=== PATIENT | male | born 1955 | race African-American/Black ===

== ENCOUNTER 2019-04-07 07:58 | Emergency (ER) | payer OTHER, SELFPAY ==
[2019-04-07 08:11] VITALS: BP 197/95; PULSE 71; RESP 16; TEMP 36.6; O2SAT 100; BMI 36.6
--- NOTE | 2019-04-07 08:25 | ED_ITS ---
HPI - General Adult General Chief complaint: Diabetic Problem Stated complaint: body swelling/change in dm med x1 day Time Seen by Provider: 04/07/19 08:14 Source: patient Mode of arrival: Ambulatory Limitations: no limitations History of Present Illness HPI narrative: Patient is a 63-year-old male with his on insulin presenting with increased swelling in his legs. He says the swelling in his legs woke him up last evening. He says he lost weight he was down to 220 however last week at his PCP office he noticed that he was up 10 lb up to 230 today he actually weighs 240 lb. He has no chest pain no shortness of breath is he just feels like his legs are extremely swollen. Few weeks ago he had a near syncopal episode due to elevated glucose he says his sugars were more than 500. He was seen by his PCP his medications were changed he was put on a different metformin 500 twice a day and he takes Lantus as well. He denies any orthopnea no fevers or chills no redness. He says yesterday he did not eat a significant amount of salt he had macro need she has rib for dinner, and a turkey sandwich for lunch. Related Data Home Medications Medication Instructions Recorded Confirmed aspirin 81 mg PO DAILY 04/07/19 04/07/19 Previous Rx's Medication Instructions Recorded furosemide 20 mg PO QAM #5 tab 04/07/19 lisinopril 20 mg PO DAILY #30 tab 04/07/19 Review of Systems Review of Systems ROS Unobtainable: All systems reviewed & are unremarkable except as noted in HPI and below Constitutional Constitutional: Denies chills, Denies fever(s), Denies lethargy and Denies weakn ess Eyes Eyes: Denies change in vision, Denies eye discharge, Denies irritation and Denies loss of vision ENT Ears, Nose, Mouth, and Throat: Denies change in voice, Denies neck pain and Denies sore throat Cardiovascular Cardiovascular: Reports as per HPI, Denies chest pain, Denies irregular heart rhythm, Reports leg edema, Denies lightheadedness, Denies palpitations, Denies dyspnea, Denies dyspnea on exertion and Denies orthopnea Respiratory Respiratory: Denies cough, Denies dyspnea, Denies dyspnea on exertion and Denies wheezing Gastrointestinal Gastrointestinal: Denies abdominal pain, Denies change in bowel habits, Denies diarrhea, Denies nausea and Denies vomiting Genitourinary Genitourinary: Denies hematuria, Denies flank pain, Denies urinary incontinence and Denies urinary urgency Musculoskeletal Musculoskeletal: Denies neck pain Integumentary/Breasts Skin/Breast: Denies pruritus, Denies erythema, Denies rash and Denies wounds Neurologic Neurologic: Denies confusion, Denies loss of vision and Denies weakness Psychiatric Psychiatric: Denies anxiety, Denies confusion, Denies depression, Denies homicidal ideation and Denies suicidal ideation Endocrine Endocrine: Denies palpitations Allergic/Immunologic Allergic/Immunologic: Denies wheezing Patient History Medical History Diabetes (Acute) Social History Smoking Status: Never smoker alcohol intake frequency: holidays/special occasions only Substance Use Type: does not use Exam Initial Vital Signs Initial Vital Signs: Vital Signs Temperature 98 F 04/07/19 08:11 Pulse Rate 71 04/07/19 08:11 Respiratory Rate 16 04/07/19 08:11 Blood Pressure 197/95 H 04/07/19 08:11 Pulse Oximetry 100 04/07/19 08:11 GENERAL: Well-appearing, well-nourished and in no acute distress. HEENT: Head atraumatic,EOMI, pupils reactive, face symmetric CARDIOVASCULAR: Regular rate and rhythm without murmurs, rubs or gallops. RESPIRATORY: Breath sounds equal bilaterally, no wheezes rales or rhonchi. Speaks in full sentences without difficulty ABDOMEN: Soft, nontender. Normoactive bowel sounds all 4 quadrants. No guarding or rebound. EXTREMITIES: Normal range of motion, no clubbing or edema. Neurovascularly intact Bilateral lower extremity edema +3 pitting edema no erythema NEUROLOGICAL: Alert and oriented x4.Normal gait and speech. Cranial nerves II through XII grossly intact. SKIN: Warm, dry, no laceration, no petechiae, no rashes or lesions. Course Orders Ordered: ED Orders 04/07/19 08:20 B Type Natriuretic Peptide Stat Complete Blood Count AUTO DIFF Stat Comprehensive Metabolic Panel Stat Magnesium Stat Troponin & CK Cardiac Panel Stat 04/07/19 08:23 Consult to Respiratory Therapy Evaluate & Treat EKG-12 Lead Stat 04/07/19 08:24 XR chest 1V Stat 04/07/19 09:08 Urine Microscopic Stat Discontinued Medications Furosemide (Lasix) 20 mg IV NOW ONE Stop: 04/07/19 08:23 Last Admin: 04/07/19 08:59 Dose: 20 mg Documented by: MELINA Vital Signs Vital signs: Vital Signs - 8 hr 04/07/19 08:11 04/07/19 09:53 Temperature 98 F Pulse Rate 71 70 Respiratory Rate 16 17 Blood Pressure 197/95 H Blood Pressure [Left Arm] 165/71 H Pulse Oximetry 100 97 Medical Decision Making Lab Data Lab results reviewed: Yes I reviewed the patient's lab results. Result diagrams: 04/07/19 08:20 04/07/19 08:20 Labs: Lab Results 04/07/19 04/07/19 04/07/19 Range/Units 08:20 08:20 09:08 WBC 8.2 (4.5-11.0) X10^3/uL RBC 4.12 L (4.5-5.9) X10^6/uL Hgb 12.1 L (13.5-17.5) g/dL Hct 35.8 L (41-53) % MCV 86.9 (80-100) fL MCH 29.4 (26-34) PG MCHC 33.9 (30-36) % RDW 12.9 (11.6-14.8) % Plt Count 185 (150-400) X10^3/uL Neut % (Auto) 69.3 (50-75) % Lymph % (Auto) 21.0 L (25-40) % [place] % (Auto) 6.4 (3-14) % Eos % (Auto) 2.1 (2-4) % Baso % (Auto) 1.2 (0-2) % Neut # (Auto) 5700 (0208-9038) /uL Lymph # (Auto) 1700 (2235-7066) /uL [place] # (Auto) 500 (0-900) /uL Eos # (Auto) 200 (0-450) /uL Baso # (Auto) 100 (0-100) /uL Sodium 140 (137-145) mmol/L Potassium 3.9 (3.4-5.1) mmol/L Chloride 106 (98-107) mmol/L Carbon Dioxide 28 (22-32) mmol/L BUN 10 (9-20) mg/dL Creatinine 0.80 (0.66-1.25) mg/dL Estimated GFR > 60.0 (>60) mL/min BUN/Creatinine Ratio 12.5 (6-22) Glucose 231 H (80-110) mg/dL Calcium 9.2 (8.4-10.2) mg/dL Magnesium 1.7 (1.6-2.3) mg/dL Total Bilirubin 0.6 (0.2-1.3) mg/dL AST 40 (17-59) IU/L ALT 41 (<50) IU/L Alkaline Phosphatase 60 (38-126) U/L Total Creatine Kinase 214 H (55-170) U/L CK-MB (CK-2) 1.03 (<2.37) ng/mL CK-MB (CK-2) Rel Index 0.5 L (1.5-5.0) % Troponin I < 0.012 (0.01-0.034) ng/mL B-Natriuretic Peptide 191 H (<100) Total Protein 6.2 L (6.3-8.2) g/dL Albumin 3.5 (3.5-5.0) g/dL Globulin 2.7 (1.7-4.1) g/dL Albumin/Globulin Ratio 1.3 (1.0-2.8) Urine RBC None seen (0-5/HPF) Urine WBC None seen (0-5/HPF) Urine Bacteria None seen (None) Ur Culture Indicated? Cult not indicated Micro UA Comment Microscopic normal Point of Care Testing Glucose POC 224 Urine Dip Bedside Urine Glucose 500 mg/dl Bedside Urine Bilirubin - Negative Bedside Urine Ketone - Negative Urine Specific [employer] [place] 1.015 Bedside Urine Occult Blood - Negative Bedside Urine pH 6.0 Bedside Urine Protein ++ 100 Bedside Urine Urobilinogen - Negative Bedside Urine Nitrite - Negative Bedside Urine Leukocytes - Negative Esterase Point of care testing: Point of Care Testing Glucose POC 224 Urine Dip Bedside Urine Glucose 500 mg/dl Bedside Urine Bilirubin - Negative Bedside Urine Ketone - Negative Urine Specific [employer] [place] 1.015 Bedside Urine Occult Blood - Negative Bedside Urine pH 6.0 Bedside Urine Protein ++ 100 Bedside Urine Urobilinogen - Negative Bedside Urine Nitrite - Negative Bedside Urine Leukocytes - Negative Esterase Imaging Data Chest x-ray: Radiologist's impression: PROCEDURE: XR CHEST 1V INDICATIONS: swelling in legs TECHNIQUE: One view of the chest was acquired. COMPARISON: None. FINDINGS: Surgical changes and devices: None. Lungs and pleura: An incomplete inspiratory result is noted, causing a crowded appearance to the lung markings. No focal infiltrates are seen. No pneumoth orax or significant pleural effusions are seen. Mediastinum: Mediastinal contours appear normal. Heart size is normal. Bones and chest wall: No suspicious bony lesions. Overlying soft tissues appear unremarkable. IMPRESSION: Limited portable chest examination, without a significant cardiopulmonary abnormality identified. Dictated by: Camilo Covarrubias M.D. on 04/07/2019 at 8:10 Approved by: Camilo Covarrubias M.D. on 04/07/2019 at 8:11 ECG Data Attestation: I personally reviewed and interpreted this ECG as follows: Prior ECG tracings: not available for review Interpretation: Normal sinus rhythm rate [address] changes no T-wave inversions MDM Narrative Medical decision making narrative: The patient states that he stop all his medication for a year including lisinopril furosemide and hydrochlorothiazide. He recently started seeing a new PCP who started him back on his medications and was going to add them back on slowly. She started with metformin atorvastatin and Lantus. At this time I will start patient back on his lisinopril and furosemide. He has urinated quite well with 20 mg of IV Lasix. I discussed with him at length signs and symptoms of angioedema from ANABELL inhibitors. However patient has tolerated that well in the past. I have decreased his dose as well. His blood pressure has come down without any intervention in the ED. Discharge Plan Departure Patient Disposition: Home Clinical Impression: Edema, peripheral Discharge Date/Time: 04/07/19 10:25 Instructions: DI for Peripheral Edema -- Bilateral Activity Restrictions/Additional Instructions: *You have been diagnosed with peripheral edema *What to do: Your previous medication to stop with swelling of your extremities. I will restart your medication today. Please started tomorrow. The doses are slightly lower than what you were previously on *Continue to take medications as directed Lisinopril 20mg once daily Furosemide 20 mg once a day in the morning for the next 5 days. You will need to have your potassium rechecked by your PCP *Follow up with your primary care provider in 2-3 days *Return to ER if you should have increased swelling, shortness of breath, chest pain or any new, worsening or concerning symptoms Prescriptions: New lisinopril 20 mg tablet 20 mg PO DAILY Qty: 30 RF: 0 furosemide 20 mg tablet 20 mg PO QAM Qty: 5 RF: 0 No Action aspirin 81 mg tablet,delayed release (DR/EC) 81 mg PO DAILY RF: 0 Referrals: [facility] [Provider Group] Malorie Collins DO [Primary Care Provider] -
[2019-04-07 08:39] LABS: Alanine Aminotransferase 41 IU/L (<50); Albumin 3.5 g/dL (3.5-5.0); Albumin Globulin Ratio 1.3 (1.0-2.8); Alkaline Phosphatase 60 U/L (38-126); Aspartate Aminotransferase 40 IU/L (17-59); BUN Creatinine Ratio 12.5 (6-22); Bilirubin Total 0.6 mg/dL (0.2-1.3); Blood Urea Nitrogen 10 mg/dL (9-20); Calcium 9.2 mg/dL (8.4-10.2); Carbon Dioxide 28 mmol/L (22-32); Chloride 106 mmol/L (98-107); Creatine Kinase 214 U/L (55-170); Estimated Glomerular Filt Rate > 60.0 mL/min (>60); Globulin 2.7 g/dL (1.7-4.1); Glucose 231 mg/dL (80-110); HEMOLYSIS < 15 (0-50); Magnesium 1.7 mg/dL (1.6-2.3); Potassium 3.9 mmol/L (3.4-5.1); Sodium 140 mmol/L (137-145); Total Protein 6.2 g/dL (6.3-8.2)
[2019-04-07 08:47] LABS: Add Manual Diff / Slide Review NO; Basophils Absolute Auto 100 /uL (0-100); Basophils Percent Auto 1.2 % (0-2); Eosinophils Absolute Auto 200 /uL (0-450); Eosinophils Percent Auto 2.1 % (2-4); Hematocrit 35.8 % (41-53); Hemoglobin 12.1 g/dL (13.5-17.5); Lymphocytes Absolute Auto 1700 /uL (1100-4500); Mean Corpuscular HGB Conc 33.9 % (30-36); Mean Corpuscular Hemoglobin 29.4 PG (26-34); Mean Corpuscular Volume 86.9 fL (80-100); Monocytes Absolute Auto 500 /uL (0-900); Monocytes Percent Auto 6.4 % (3-14); Neutrophils Absolute Auto 5700 /uL (1500-7000); Neutrophils Percent Auto 69.3 % (50-75); Platelet Count 185 X10^3/uL (150-400); Red Blood Cell Count 4.12 X10^6/uL (4.5-5.9); Red Cell Distribution Width 12.9 % (11.6-14.8); White Blood Cell Count 8.2 X10^3/uL (4.5-11.0)
[2019-04-07 08:51] LABS: Troponin I < 0.012 ng/mL (0.01-0.034)
[2019-04-07 08:54] LABS: CKMB % Relative Index 0.5 % (1.5-5.0); Creatine Kinase MB 1.03 ng/mL (<2.37)
[2019-04-07] MEDS: FUROSEMIDE 40 MG/4 ML VIAL 20 MG IV (08:59)
[2019-04-07 09:01] LABS: B Type Natriuretic Peptide 191 (<100)
[2019-04-07 09:53] VITALS: BP 165/71; PULSE 70; RESP 17; O2SAT 97
[2019-04-07 10:09] LABS: Bacteria Urine None Seen; RBC Urine None Seen (0-5/HPF); WBC Urine None Seen (0-5/HPF)
[2019-04-07 10:16] LABS: Culture Indicated Urine Cult Not Indicated; Urine Comments Microscopic Normal
== END 2019-04-07 10:25 | disposition home or self-care (01) ==
PROVIDERS: Emergency Provider Emergency Medicine; PCP Family Medicine
DX: R60.9 Edema, unspecified (principal); E11.9 Type 2 diabetes mellitus without complications
CPT/HCPCS: 36415; 71045; 80053; 81003; 81015; 82550; 82553; 82962; 83735; 83880; 84484; 85025; 93005; 93010; 96374; 99283; 99285; J1940

== ENCOUNTER 2019-08-14 12:22 | Emergency (ER) | payer OTHER, SELFPAY ==
[2019-08-14 12:25] VITALS: BP 220/99; PULSE 72; RESP 18; TEMP 36.5; O2SAT 98
--- NOTE | 2019-08-14 12:35 | ED.CHESTPAIN ---
HPI - Chest Pain <KEVIN Brar - Last Filed: 08/14/19 21:15> General Chief Complaint: Hypertension Stated Complaint: High blood pressure Time Seen by Provider: 08/14/19 12:30 Source: patient Mode of arrival: Ambulatory Limitations: no limitations History of Present Illness HPI narrative: 64yo male with a history of significant hypertension, diabetes, Mobitz 1, and obesity, presents to the emergency department complaining of high blood pressure in reporting that his systolic has been over 200 for the past 6 months. However, this morning around 10 AM, as he was on a conference call, he measured his blood pressure and noticed that the diastolic measurement was over 100. Patient stated while he was measuring his blood pressure on his left arm, he noticed his left arm felt numb, the numbness radiated down to his leg, this happened around 10:00 a.m. this morning. The leg numbness resolved after a few minutes but the arm numbness continued. He also noticed that ?my head felt hot ?but denies any vision changes, headaches, chest pain, shortness of breath, fevers, cough, chills, nausea, vomiting, diarrhea, abdominal pain, or any other concerns. He denies any history of cardiac surgeries, MIs, or other significant problems. Related Data Home Medications Medication Instructions Recorded Confirmed aspirin 81 mg PO DAILY 04/07/19 04/07/19 Previous Rx's Medication Instructions Recorded furosemide 20 mg PO QAM #5 tab 04/07/19 lisinopril 20 mg PO DAILY #30 tab 04/07/19 Allergies Allergy/AdvReac Type Severity Reaction Status Date / Time No Known Drug Allergies Allergy Verified 08/14/19 12:38 Review of Systems <KEVIN Brar - Last Filed: 08/14/19 21:15> Review of Systems Narrative: REVIEW OF SYSTEMS: GENERAL: Denies fever or chills. HENT: No head trauma, hearing loss or sore throat. EYES: No loss of vision, double vision, eye pain, or irritation. CARDIOVASCULAR: No chest pain or syncope. RESPIRATORY: No shortness of breath or cough. GASTROINTESTINAL: No nausea, vomiting, diarrhea, or constipation. GENITOURINARY: No flank pain or dysuria. MUSCULOSKELETAL: No pain, weakness, or deformities. INTEGUMENTARY: No rash, lesions, or pruritus. NEURO: Complains of left arm numbness, see HPI. PSYCH: No behavior or mood changes. Patient History <KEVIN Brar - Last Filed: 08/14/19 21:15> Medical History Diabetes (Acute) Social History Smoking Status: Never smoker Smoking Status: Never smoker alcohol intake frequency: holidays/special occasions only Substance Use Type: does not use Exam <KEVIN Brar - Last Filed: 08/14/19 21:15> Initial Vital Signs Initial Vital Signs: Vital Signs Temperature 97.7 F 08/14/19 12:25 Pulse Rate 72 08/14/19 12:25 Respiratory Rate 18 08/14/19 12:25 Blood Pressure 220/99 H 08/14/19 12:25 Pulse Oximetry 98 08/14/19 12:25 PHYSICAL EXAMINATION: GENERAL: Well groomed, alert, and cooperative. Answers questions promptly and appropriately. Vital signs noted. HENT: Normocephalic, atraumatic. Ear canals patent. Oral mucosa is pink and moist. EYES: Conjunctiva pink, sclera white, no periorbital swelling. NECK: Full range of motion of neck without pain. CHEST: Normal to inspection and without deformities. CARDIOVASCULAR: S1 and S2 sounds normal. Regular rate and rhythm, no murmurs, clicks, or bruits. No pedal edema. RESPIRATORY: Normal respiratory rate, trachea midline, airway patent. No stridor, nasal flaring or accessory muscle use. Lungs are clear in all salas without wheeze, rhonchi, or crackles. GASTROINTESTINAL: Bowel sounds normoactive. Abdomen is soft and non-tender. No organomegaly. MUSCULOSKELETAL: No tenderness to palpation of back, neck, or arm. Normal gait and coordination. Equal tone and mass bilaterally. Equal investigator narcotics, deltoid, and forearm strength to upper extremities. EXTREMITIES: CMS intact. Moves all extremities. SKIN: Warm, dry, soft, appropriate color for ethnicity. No lesions, rashes, or wounds. NEURO: Alert and Oriented X 3. CN II-XIII intact. Good coordination. No ataxia, or sensory deficits, or cognitive issues. Light touch sensation equal to upper extremities bilaterally. PSYCH: Appropriate affect and mood. <Orlando Spencer DO - Last Filed: 08/17/19 11:34> Initial Vital Signs Initial Vital Signs: Vital Signs Temperature 97.7 F 08/14/19 12:25 Pulse Rate 72 08/14/19 12:25 Respiratory Rate 18 08/14/19 12:25 Blood Pressure 220/99 H 08/14/19 12:25 Pulse Oximetry 98 08/14/19 12:25 Scores <KEVIN Brar - Last Filed: 08/14/19 21:15> HEART Score Heart Score history: Slightly Suspicious Heart Score EKG: Normal Heart Score Age: 45-64 years old Heart Score risk factors: 1-2 risk factors Heart Score troponin: < or = to normal limit Heart Score Total: 2 NIH Stroke Scale Level of Conciousness: Alert, keenly responsive Ask month/age: Answers both questions correctly. Open/close eyes, close hand: Performs both tasks correctly Best gaze horizontal: Normal Visual salas: No visual loss Facial palsy: Normal symetrical movement Left arm drift: No drift for full 10 sec Right arm drift: No drift for full 10 sec Left leg drift: No drift for full 10 sec Right leg drift: No drift for full 10 sec Limb ataxia: Absent Sensory on face/arms/legs: Normal, no sensory loss Best language: No aphasia, normal Dysarthria: Normal Extinction or inattention: No abnormality Total NIH Stroke scale score: 0 Course <KEVIN Brar - Last Filed: 08/14/19 21:15> Course Course Narrative: Patient states that his left arm numbness completely resolved around 1320. No other symptoms, remained chest pain-free. Orders Ordered: Discontinued Medications Aspirin (Aspirin Chew) 324 mg PO NOW ONE Stop: 08/14/19 12:35 Last Admin: 08/14/19 13:24 Dose: 324 mg Documented by: [email or web address] Sodium Chloride (Normal Saline 0.9%) 1,000 mls @ 150 mls/hr IV CONT MATTHEW Last Infusion: 08/14/19 14:25 Dose: 0 mls/hr Documented by: [email or web address] Infusion: 08/14/19 14:22 Dose: 1,000 mls/hr Documented by: [email or web address] Admin: 08/14/19 13:24 Dose: 150 mls/hr Documented by: [email or web address] Consultations Consultation #1: Staffed with Dr. Spencer. Vital Signs Vital signs: Vital Signs - 8 hr 08/14/19 13:39 08/14/19 14:08 Pulse Rate 61 62 Respiratory Rate 16 20 Blood Pressure [Left Arm] 171/80 H 171/80 H Pulse Oximetry 99 99 <Orlando Spencer DO - Last Filed: 08/17/19 11:34> Orders Ordered: Discontinued Medications Aspirin (Aspirin Chew) 324 mg PO NOW ONE Stop: 08/14/19 12:35 Last Admin: 08/14/19 13:24 Dose: 324 mg Documented by: [email or web address] Sodium Chloride (Normal Saline 0.9%) 1,000 mls @ 150 mls/hr IV CONT MATTHEW Last Infusion: 08/14/19 14:25 Dose: 0 mls/hr Documented by: [email or web address] Infusion: 08/14/19 14:22 Dose: 1,000 mls/hr Documented by: [email or web address] Admin: 08/14/19 13:24 Dose: 150 mls/hr Documented by: [email or web address] Vital Signs Vital signs: Vital Signs - 8 hr 08/14/19 13:39 08/14/19 14:08 Pulse Rate 61 62 Respiratory Rate 16 20 Blood Pressure [Left Arm] 171/80 H 171/80 H Pulse Oximetry 99 99 MDM - Chest Pain <KEVIN Brar - Last Filed: 08/14/19 21:15> Medical Records Data Attestation: I reviewed the patient's medical records. Lab Data Attestation: I reviewed the patient's lab results. Result diagrams: 08/14/19 12:15 08/14/19 12:15 Labs: Lab Results 08/14/19 08/14/19 Range/Units 12:15 12:15 WBC 6.0 (4.5-11.0) X10^3/uL RBC 4.67 (4.5-5.9) X10^6/uL Hgb 13.5 (13.5-17.5) g/dL Hct 39.9 L (41-53) % MCV 85.6 (80-100) fL MCH 29.0 (26-34) PG MCHC 33.9 (30-36) % RDW 13.6 (11.6-14.8) % Plt Count 222 (150-400) X10^3/uL Neut % (Auto) 57.9 (50-75) % Lymph % (Auto) 33.3 (25-40) % [place] % (Auto) 7.2 (3-14) % Eos % (Auto) 1.1 L (2-4) % Baso % (Auto) 0.5 (0-2) % Neut # (Auto) 3500 (7926-5487) /uL Lymph # (Auto) 2000 (6494-7287) /uL [place] # (Auto) 400 (0-900) /uL Eos # (Auto) 100 (0-450) /uL Baso # (Auto) 0 (0-100) /uL Sodium 138 (137-145) mmol/L Potassium 4.3 (3.4-5.1) mmol/L Chloride 103 (98-107) mmol/L Carbon Dioxide 27 (22-32) mmol/L BUN 13 (9-20) mg/dL Creatinine 0.91 (0.66-1.25) mg/dL Estimated GFR > 60.0 (>60) mL/min BUN/Creatinine Ratio 14.3 (6-22) Glucose 288 H (80-110) mg/dL Calcium 9.4 (8.4-10.2) mg/dL Total Bilirubin 0.6 (0.2-1.3) mg/dL AST 31 (17-59) IU/L ALT 31 (<50) IU/L Alkaline Phosphatase 65 (38-126) U/L Total Creatine Kinase 130 (55-170) U/L CK-MB (CK-2) 1.10 (<2.37) ng/mL CK-MB (CK-2) Rel Index 0.8 L (1.5-5.0) % Troponin I < 0.012 (0.01-0.034) ng/mL Total Protein 7.3 (6.3-8.2) g/dL Albumin 4.2 (3.5-5.0) g/dL Globulin 3.1 (1.7-4.1) g/dL Albumin/Globulin Ratio 1.4 (1.0-2.8) Lipase 87 (23-300) U/L Imaging Data Chest x-ray: Radiologist's Impression: [address] [address] XRay Report Signed Patient: Glen Guardado RMR#: [id number] : 7Acct:[id number] Age/Sex: 64 / MDate of Service: 08/14/19 Loc: ED Accession Number: [id number] Procedure: XR chest 1V Ordering Provider: Amy Koehler PROCEDURE: XR CHEST 1V INDICATIONS: HBP, chest pain TECHNIQUE: One view of the chest was acquired. COMPARISON: [facility], , XR CHEST 1V, 04/07/2019, 8:37. FINDINGS: Surgical changes and devices: None. Lungs and pleura: Lungs are clear. No pleural effusions or pneumothorax. Mediastinum: Mediastinal contours appear normal. Heart size is normal. Bones and chest wall: No suspicious bony lesions. Overlying soft tissues appear unremarkable. IMPRESSION: Normal for age, source of current chest pain symptoms is not seen. Dictated by: Tomer Duke M.D. on 08/14/2019 at 13:11 Approved by: Tomer Duke M.D. on 08/14/2019 at 13:11 ECG Data Interpretation: Rate 67, AL interval 292, QTC 456. Sinus rhythm, Mobitz 1, Left axis deviation. No ST elevation or ST depression. No T-wave abnormality. EKG is similar to prior EKG done on 03/2019. EKG also viewed by Dr. Spencer per protocol. [facility] Narrative Medical decision making narrative: 64-year-old male with a history of hypertension and diabetes, presents emergency department with left arm and a left leg numbness and flushing with upset high blood pressure. This happened while he was measuring his blood pressure on his left arm. Patient's symptoms completely resolved in the emergency department. Less likely MSK related as the symptoms were not reproducible on examination with palpation. Less likely cardiac or intracranial etiology due to lack of chest pain, weakness, and EKG fairly non-remarkable (left axis deviation and Mobitz 1-similar to history), troponin negative, chest x-ray is non-remarkable, heart score of 2, NIH score of 0. I am unsure the exact etiology of patient's symptoms. It may be possible that the blood pressure cough cause some sensation due to they squeezing nature, however, it is on and that the numbness which continue to last for few hours. Patient's blood pressure was decreased in the emergency department stay without intervention. 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 Patient and is not a candidate for admission due to lack of other symptoms and reassuring cardiac workup. However, he was given very strict return precautions. Patient agreed to plan of care verbalized understanding. <Orlando Spencer DO - Last Filed: 08/17/19 11:34> Lab Data Labs: Lab Results 08/14/19 08/14/19 Range/Units 12:15 12:15 WBC 6.0 (4.5-11.0) X10^3/uL RBC 4.67 (4.5-5.9) X10^6/uL Hgb 13.5 (13.5-17.5) g/dL Hct 39.9 L (41-53) % MCV 85.6 (80-100) fL MCH 29.0 (26-34) PG MCHC 33.9 (30-36) % RDW 13.6 (11.6-14.8) % Plt Count 222 (150-400) X10^3/uL Neut % (Auto) 57.9 (50-75) % Lymph % (Auto) 33.3 (25-40) % [place] % (Auto) 7.2 (3-14) % Eos % (Auto) 1.1 L (2-4) % Baso % (Auto) 0.5 (0-2) % Neut # (Auto) 3500 (3914-1620) /uL Lymph # (Auto) 2000 (2800-8778) /uL [place] # (Auto) 400 (0-900) /uL Eos # (Auto) 100 (0-450) /uL Baso # (Auto) 0 (0-100) /uL Sodium 138 (137-145) mmol/L Potassium 4.3 (3.4-5.1) mmol/L Chloride 103 (98-107) mmol/L Carbon Dioxide 27 (22-32) mmol/L BUN 13 (9-20) mg/dL Creatinine 0.91 (0.66-1.25) mg/dL Estimated GFR > 60.0 (>60) mL/min BUN/Creatinine Ratio 14.3 (6-22) Glucose 288 H (80-110) mg/dL Calcium 9.4 (8.4-10.2) mg/dL Total Bilirubin 0.6 (0.2-1.3) mg/dL AST 31 (17-59) IU/L ALT 31 (<50) IU/L Alkaline Phosphatase 65 (38-126) U/L Total Creatine Kinase 130 (55-170) U/L CK-MB (CK-2) 1.10 (<2.37) ng/mL CK-MB (CK-2) Rel Index 0.8 L (1.5-5.0) % Troponin I < 0.012 (0.01-0.034) ng/mL Total Protein 7.3 (6.3-8.2) g/dL Albumin 4.2 (3.5-5.0) g/dL Globulin 3.1 (1.7-4.1) g/dL Albumin/Globulin Ratio 1.4 (1.0-2.8) Lipase 87 (23-300) U/L Discharge Plan Departure Patient Disposition: Home Clinical Impression: Hypertension Qualifiers: Hypertension type: unspecified Qualified Code(s): I10 - Essential (primary) hypertension Discharge Date/Time: 08/14/19 14:20 Instructions: DI for High Blood Pressure Activity Restrictions/Additional Instructions: Thank you for entrusting me with your care today. As discussed, your blood pressure was high initially measuring at 220/99, however, your lab work, EKG, and x-ray was non-remarkable. I suggest calling your sewing pattern layout technician and asking for sooner appointment to be evaluated due to high blood pressure, please tell them the was seen in the emergency department. Return emergency department for any new or worsening symptoms such as chest pain, shortness of breath, dizziness, syncope, limb weakness, facial droop, or any other concerning symptoms. Prescriptions: No Action aspirin 81 mg tablet,delayed release (DR/EC) 81 mg PO DAILY RF: 0 lisinopril 20 mg tablet 20 mg PO DAILY Qty: 30 RF: 0 furosemide 20 mg tablet 20 mg PO QAM Qty: 5 RF: 0 Referrals: Malorie Collins DO [Primary Care Provider] - <Orlando Spencer DO - Last Filed: 08/17/19 11:34> Sign Out Provider Sign Out Attestation: I was immediately available in the department for consultation. This documentation has been reviewed and I agree with assessment and plan. Supervised by Orlando Spencer, DO
[2019-08-14 13:00] LABS: Add Manual Diff / Slide Review NO; Basophils Absolute Auto 0 /uL (0-100); Basophils Percent Auto 0.5 % (0-2); Eosinophils Absolute Auto 100 /uL (0-450); Eosinophils Percent Auto 1.1 % (2-4); Hematocrit 39.9 % (41-53); Hemoglobin 13.5 g/dL (13.5-17.5); Lymphocytes Absolute Auto 2000 /uL (1100-4500); Lymphocytes Percent Auto 33.3 % (25-40); Mean Corpuscular HGB Conc 33.9 % (30-36); Mean Corpuscular Volume 85.6 fL (80-100); Monocytes Absolute Auto 400 /uL (0-900); Monocytes Percent Auto 7.2 % (3-14); Neutrophils Absolute Auto 3500 /uL (1500-7000); Neutrophils Percent Auto 57.9 % (50-75); Platelet Count 222 X10^3/uL (150-400); Red Blood Cell Count 4.67 X10^6/uL (4.5-5.9); Red Cell Distribution Width 13.6 % (11.6-14.8)
[2019-08-14 13:03] VITALS: BP 170/92; PULSE 81; RESP 20; O2SAT 99
[2019-08-14] MEDS: ASPIRIN 81 MG CHEW TAB 324 MG PO (13:24)
[2019-08-14] MEDS: SODIUM CHLORIDE 0.9% 1,000 ML 150 ML IV (13:24)
[2019-08-14 13:27] LABS: Alanine Aminotransferase 31 IU/L (<50); Albumin 4.2 g/dL (3.5-5.0); Albumin Globulin Ratio 1.4 (1.0-2.8); Alkaline Phosphatase 65 U/L (38-126); Aspartate Aminotransferase 31 IU/L (17-59); BUN Creatinine Ratio 14.3 (6-22); Bilirubin Total 0.6 mg/dL (0.2-1.3); Blood Urea Nitrogen 13 mg/dL (9-20); Calcium 9.4 mg/dL (8.4-10.2); Carbon Dioxide 27 mmol/L (22-32); Chloride 103 mmol/L (98-107); Creatine Kinase 130 U/L (55-170); Estimated Glomerular Filt Rate > 60.0 mL/min (>60); Globulin 3.1 g/dL (1.7-4.1); Glucose 288 mg/dL (80-110); HEMOLYSIS < 15 (0-50); Lipase 87 U/L (23-300); Potassium 4.3 mmol/L (3.4-5.1); Sodium 138 mmol/L (137-145); Total Protein 7.3 g/dL (6.3-8.2)
[2019-08-14 13:37] LABS: Troponin I < 0.012 ng/mL (0.01-0.034)
[2019-08-14 13:39] VITALS: BP 171/80; PULSE 61; RESP 16; O2SAT 99
[2019-08-14 13:42] LABS: CKMB % Relative Index 0.8 % (1.5-5.0)
[2019-08-14 14:08] VITALS: BP 171/80; PULSE 62; RESP 20; O2SAT 99
== END 2019-08-14 14:20 | disposition home or self-care (01) ==
PROVIDERS: Emergency Provider Nurse Practitioner; PCP Family Medicine
DX: I10 Essential (primary) hypertension (principal); E11.9 Type 2 diabetes mellitus without complications; R20.0 Anesthesia of skin
CPT/HCPCS: 36415; 71045; 80053; 82550; 82553; 83690; 84484; 85025; 93005; 96360; 99284

== ENCOUNTER 2021-02-16 03:02 | Inpatient (IN) | payer OTHER, SELFPAY ==
[2021-02-16] VITALS (42 sets, daily range): BP systolic 103–161; BP diastolic 54–67; PULSE 45–85; RESP 11–38; TEMP 35.9–36.5; O2SAT 60–99; BMI 35.7
--- NOTE | 2021-02-16 03:15 | ED_ITS ---
HPI - SOB/Dyspnea General Chief Complaint: Shortness of Breath/Dyspnea Stated Complaint: Oxygen levels are low Time Seen by Provider: 02/16/21 03:10 History of Present Illness HPI Narrative: 65-year-old male nonsmoker with history of hypertension and diabetes presents with a chief complaint of increasing shortness of breath and low oxygen levels at home. He states he has known COVID pneumonia and had been recently admitted at an outside facility but signed out Against Medical Advice. He had been doing relatively well at home but took a significant turn for the worse over the past day or 2. He is had low-grade fever and body aches as well as some chills in addition to the shortness of breath that was mentioned above. Related Data Home Medications Medication Instructions Recorded Confirmed aspirin 81 mg tablet,delayed 81 mg PO DAILY 04/07/19 04/07/19 release Previous Rx's Medication Instructions Recorded furosemide 20 mg tablet 20 mg PO QAM #5 tab 04/07/19 lisinopril 20 mg tablet 20 mg PO DAILY #30 tab 04/07/19 Allergies Allergy/AdvReac Type Severity Reaction Status Date / Time No Known Drug Allergies Allergy Verified 08/14/19 12:38 Review of Systems Review of Systems Narrative: GENERAL: See HPI HEENT: Denies sinus pain, ear pain, sore throat, difficulty swallowing, dizziness. RESPIRATORY: See HPI CARDIOVASCULAR: Denies chest pain, palpitations, orthopnea, edema, GASTROINTESTINAL: Denies nausea, vomiting, abdominal pain, diarrhea, constipation, melena. : Denies dysuria, frequency, incontinence, hematuria, urinary retention. MUSCULOSKELETAL: denies weakness, joint pain, or bony pain SKIN: Denies rash, skin lesions, or other NEUROLOGIC: Denies weakness, headache, numbness, change in speech, confusion, seizures, incoordination. PSYCHIATRIC: No concerning psychosocial issues. 12 point review of systems is negative except for those stated above Patient History Medical History (Updated 02/16/21 @ 06:58 by Orlando Spencer DO) Diabetes Social History household members: spouse Smoking Status: Never smoker alcohol intake: former Smoking Status: Never smoker alcohol intake frequency: holidays/special occasions only Substance Use Type: does not use Exam Narrative Exam Narrative: GENERAL: [65 year old patient appears stated age. Well-developed patient, in obvious respiratory distress, initial pulse ox in the 60s on room air, quickly improves with high-flow HEAD: Atraumatic. Normocephalic. EYES: Pupils equal round and reactive. Extraocular motions intact. No scleral icterus. No injection or drainage. ENT: Nose without bleeding, purulent drainage. Throat without erythema, to nsillar hypertrophy or exudate. Airway patent. NECK: Trachea midline. Non tender CARDIOVASCULAR: Regular rate and rhythm without murmurs, gallops, or rubs. RESPIRATORY: Coarse lung sounds in all salas, increased work of breathing GASTROINTESTINAL: Abdomen soft, non-tender, nondistended. EXTREMITIES: No edema or joint tenderness. BACK: Nontender without deformity or crepitance. No flank tenderness. NEURO: AOx3. SKIN: No rash or erythema of visible areas Initial Vital Signs Initial Vital Signs: Vital Signs Temperature 97.6 F 02/16/21 03:05 Pulse Rate 70 02/16/21 03:05 Respiratory Rate 25 H 02/16/21 03:05 Blood Pressure 145/64 H 02/16/21 03:05 Pulse Oximetry 60 L 02/16/21 03:05 Course Course Course Narrative: ESTHELA at 1 hour ESTHELA Index for Intubation after HFNC from [facility] on 02/16/2021 All calculations should be rechecked by clinician prior to use RESULT SUMMARY: 4.28 points ESTHELA Index Patient should be reassessed within 2 hours and the index re-calculated INPUTS: SpO? ?> 93 % FiO? ?> 75 % Respiratory rate ?> 29 breaths/min Esthela @ 2hr ESTHELA Index for Intubation after HFNC from [facility] on 02/16/2021 All calculations should be rechecked by clinician prior to use RESULT SUMMARY: 4.24 points ESTHELA Index Patient should be reassessed within 2 hours and the index re-calculated INPUTS: SpO? ?> 89 % FiO? ?> 75 % Respiratory rate ?> 28 breaths/min 4.24 Orders Ordered: ED Orders 02/16/21 03:20 C-Reactive Protein Quant Stat Complete Blood Count AUTO DIFF Stat Comprehensive Metabolic Panel Stat D Dimer Stat Ferritin Stat Lactate (Lactic Acid) Stat Lactate Dehydrogenase Stat NT-proBNP (BNP-Adult 18+) Stat Procalcitonin Stat Troponin & CK Cardiac Panel Stat 02/16/21 03:23 High flow/High humidity nasal STAT 02/16/21 03:24 XR chest 1V Stat 02/16/21 03:33 Respiratory Panel (Film Array) Stat 02/16/21 03:55 Blood Culture Stat 02/16/21 04:00 CT angio chest PE protocol Stat 02/16/21 04:20 Arterial Blood Gas Stat Acetaminophen (Acetaminophen 325 Mg Tablet) 650 mg PO Q6HR PRN PRN Reason: Fever Amlodipine Besylate (Amlodipine 5 Mg Tablet) 10 mg PO DAILY [facility] Aspirin (Aspirin Ec 81 Mg Tablet) 81 mg PO DAILY [facility]W Atorvastatin Calcium (Atorvastatin 20 Mg Tablet) 40 mg PO BEDTIME [facility]W Bisacodyl (Bisacodyl 10 Mg Supp) 10 mg NE DAILY PRN PRN Reason: Constipation Dexamethasone (Dexamethasone 10 Mg/Ml Vial) 6 mg IV DAILY [facility] Docusate Sodium (Docusate 100 Mg Capsule) 100 mg PO BID [facility] Enoxaparin Sodium (Enoxaparin 40 Mg/0.4 Ml Syringe) 40 mg SUBCUT DAILY [facility] Famotidine (Famotidine 20 Mg/2 Ml Vial) 20 mg IV BID [facility] Hydralazine HCl (Hydralazine 20 Mg/Ml Vial) 10 mg IV Q6HR PRN PRN Reason: Hypertension Stop: 02/21/21 06:38 Hydralazine HCl (Hydralazine 10 Mg Tablet) 100 mg PO Q8HR [facility] Remdesivir 100 mg/ Sodium (Chloride) 250 mls @ 250 mls/hr IV DAILY [facility] Stop: 02/25/21 09:59 Insulin Glargine (Insulin Glargine 100 Unit/Ml 3ml Pen) 40 unit SUBCUT BEDTIME [facility] Lisinopril (Lisinopril 20 Mg Tablet) 20 mg PO DAILY [facility] Lisinopril (Lisinopril 20 Mg Tablet) 40 mg PO DAILY [facility] Magnesium Hydroxide (Magnesium Hydroxide 30 Ml Udc) 30 ml PO BID [facility] Naloxone HCl (Naloxone 0.4 Mg/Ml Vial) 0.2 mg IV Q2MIN PRN PRN Reason: Opiate Reversal Discontinued Medications Dexamethasone (Dexamethasone 10 Mg/Ml Vial) 6 mg IV NOW ONE Stop: 02/16/21 03:24 Last Admin: 02/16/21 03:59 Dose: 6 mg Documented by: DOMINGO Remdesivir 200 mg/ Sodium (Chloride) 250 mls @ 250 mls/hr IV NOW ONE Stop: 02/16/21 03:24 Last Admin: 02/16/21 04:30 Dose: 250 mls/hr Documented by: KGALLAG Insulin Glargine (Insulin Glargine 100 Unit/Ml 3ml Pen) 10 unit SUBCUT BEDTIME [facility]W Insulin Human Lispro (Insulin Lispro 100 Unit/Ml 3ml Vial) 0 unit SUBCUT ACHS MATTHEW; Protocol Reevaluation(s) Reevaluation #1: Significant improvement after addition of high-flow nasal cannula Vital Signs Vital signs: Vital Signs - 8 hr 02/16/21 03:05 02/16/21 03:08 02/16/21 03:37 Temperature 97.6 F Pulse Rate 70 71 Respiratory Rate 25 H 24 Blood Pressure 145/64 H 145/64 H Pulse Oximetry 60 L 88 L 92 02/16/21 04:11 02/16/21 04:15 02/16/21 04:25 Temperature Pulse Rate 66 62 64 Respiratory Rate 20 28 H 27 H Blood Pressure 129/64 Pulse Oximetry 90 L 93 91 02/16/21 04:30 02/16/21 04:35 02/16/21 04:36 Temperature Pulse Rate 65 64 Respiratory Rate 21 33 H Blood Pressure 137/60 144/64 H Pulse Oximetry 86 L 87 L 02/16/21 05:00 02/16/21 05:30 02/16/21 05:31 Temperature Pulse Rate 60 57 L 57 L Respiratory Rate 24 28 H 34 H Blood Pressure 147/64 H 161/67 H Pulse Oximetry 89 L 92 90 L MDM - SOB/Dyspnea Lab Data Result diagrams: 02/16/21 03:20 02/16/21 03:20 Labs: Lab Results 02/16/21 02/16/21 02/16/21 Range/Units 03:20 03:20 03:20 WBC 6.6 (4.5-11.0) X10^3/uL RBC 4.16 L (4.5-5.9) X10^6/uL Hgb 11.9 L (13.5-17.5) g/dL Hct 35.1 L (41-53) % MCV 84.4 (80-100) fL MCH 28.5 (26-34) PG MCHC 33.8 (30-36) % RDW 12.8 (11.6-14.8) % Plt Count 407 H (150-400) X10^3/uL Neut % (Auto) 77.1 H (50-75) % Lymph % (Auto) 17.0 L (25-40) % [place] % (Auto) 4.4 (3-14) % Eos % (Auto) 0.5 L (2-4) % Baso % (Auto) 1.0 (0-2) % Neut # (Auto) 5100 (7732-3836) /uL Lymph # (Auto) 1100 (1152-0492) /uL [place] # (Auto) 300 (0-900) /uL Eos # (Auto) 0 (0-450) /uL Baso # (Auto) 100 (0-100) /uL D-Dimer 2562 H (<230) ng/mL ABG pH (7.35-7.45) ABG pCO2 (35-45) mmHg ABG pO2 (80-100) mmHg ABG HCO3 (22-26) mmol/L ABG Total CO2 (21-31) mmol/L ABG O2 Saturation (95-100) % ABG Base Excess (-2-2) mmol/L FiO2 Sodium (137-145) mmol/L Potassium (3.4-5.1) mmol/L Chloride (98-107) mmol/L Carbon Dioxide (22-32) mmol/L BUN (9-20) mg/dL Creatinine (0.66-1.25) mg/dL Estimated GFR (>60) mL/min BUN/Creatinine Ratio (6-22) Glucose (80-110) mg/dL Lactate (0.7-2.1) mmol/L Calcium (8.4-10.2) mg/dL Ferritin (18-464) ng/mL Total Bilirubin (0.2-1.3) mg/dL AST (17-59) IU/L ALT (<50) IU/L Alkaline Phosphatase (38-126) U/L Lactate Dehydrogenase (313-618) U/L Total Creatine Kinase (55-170) U/L CK-MB (CK-2) CK-MB (CK-2) Rel Index Troponin I (0.01-0.034) ng/mL C-Reactive Protein (<1.0) mg/dL NT-Pro-B Natriuret Pep (<125) pg/mL Total Protein (6.3-8.2) g/dL Albumin (3.5-5.0) g/dL Globulin (1.7-4.1) g/dL Albumin/Globulin Ratio (1.0-2.8) Procalcitonin 0.17 (<0.5) ng/mL Chlamy pneumoniae PCR (Not Detect) Adenovirus (PCR) (Not Detect) B. pertussis DNA (PCR) (Not Detecte) B.parapertussis DNA PCR (Not Detecte) Coronavirus OC43 (PCR) (Not Detect) Coronavirus HKU1 (PCR) (Not Detect) Coronavirus 229E (PCR) (Not Detect) SARS-CoV-2 (PCR) (Not Detecte) Coronavirus NL63 (PCR) (Not Detect) Human Metapneumovir PCR (Not Detect) Influenza Type A (PCR) (Not Detect) Influenza Type B (PCR) (Not Detect) M. pneumoniae (PCR) (Not Detect) Parainfluenza 1 (PCR) (Not Detect) Parainfluenza 2 (PCR) (Not Detect) Parainfluenza 3 (PCR) (Not Detect) Parainfluenza 4 (PCR) (Not Detect) RSV (PCR) (Not Detect) Entero/Rhino (PCR) (Not Detect) 02/16/21 02/16/21 02/16/21 Range/Units 03:20 03:20 03:33 WBC (4.5-11.0) X10^3/uL RBC (4.5-5.9) X10^6/uL Hgb (13.5-17.5) g/dL Hct (41-53) % MCV (80-100) fL MCH (26-34) PG MCHC (30-36) % RDW (11.6-14.8) % Plt Count (150-400) X10^3/uL Neut % (Auto) (50-75) % Lymph % (Auto) (25-40) % [place] % (Auto) (3-14) % Eos % (Auto) (2-4) % Baso % (Auto) (0-2) % Neut # (Auto) (7934-5965) /uL Lymph # (Auto) (9348-1034) /uL [place] # (Auto) (0-900) /uL Eos # (Auto) (0-450) /uL Baso # (Auto) (0-100) /uL D-Dimer (<230) ng/mL ABG pH (7.35-7.45) ABG pCO2 (35-45) mmHg ABG pO2 (80-100) mmHg ABG HCO3 (22-26) mmol/L ABG Total CO2 (21-31) mmol/L ABG O2 Saturation (95-100) % ABG Base Excess (-2-2) mmol/L FiO2 Sodium 131 L (137-145) mmol/L Potassium 4.3 (3.4-5.1) mmol/L Chloride 99 (98-107) mmol/L Carbon Dioxide 28 (22-32) mmol/L BUN 41 H (9-20) mg/dL Creatinine 1.19 (0.66-1.25) mg/dL Estimated GFR > 60.0 (>60) mL/min BUN/Creatinine Ratio 34.5 H (6-22) Glucose 357 H (80-110) mg/dL Lactate 2.0 (0.7-2.1) mmol/L Calcium 8.3 L (8.4-10.2) mg/dL Ferritin 391 (18-464) ng/mL Total Bilirubin 0.6 (0.2-1.3) mg/dL AST 27 (17-59) IU/L ALT 40 (<50) IU/L Alkaline Phosphatase 51 (38-126) U/L Lactate Dehydrogenase 894 H (313-618) U/L Total Creatine Kinase 79 (55-170) U/L CK-MB (CK-2) TNP CK-MB (CK-2) Rel Index TNP Troponin I < 0.012 (0.01-0.034) ng/mL C-Reactive Protein 21.5 H (<1.0) mg/dL NT-Pro-B Natriuret Pep 650 H (<125) pg/mL Total Protein 6.2 L (6.3-8.2) g/dL Albumin 2.9 L (3.5-5.0) g/dL Globulin 3.3 (1.7-4.1) g/dL Albumin/Globulin Ratio 0.9 L (1.0-2.8) Procalcitonin (<0.5) ng/mL Chlamy pneumoniae PCR Not detected (Not Detect) Adenovirus (PCR) Not detected (Not Detect) B. pertussis DNA (PCR) Not detected (Not Detecte) B.parapertussis DNA PCR Not detected (Not Detecte) Coronavirus OC43 (PCR) Not detected (Not Detect) Coronavirus HKU1 (PCR) Not detected (Not Detect) Coronavirus 229E (PCR) Not detected (Not Detect) SARS-CoV-2 (PCR) Detected H (Not Detecte) Coronavirus NL63 (PCR) Not detected (Not Detect) Human Metapneumovir PCR Not detected (Not Detect) Influenza Type A (PCR) Not detected (Not Detect) Influenza Type B (PCR) Not detected (Not Detect) M. pneumoniae (PCR) Not detected (Not Detect) Parainfluenza 1 (PCR) Not detected (Not Detect) Parainfluenza 2 (PCR) Not detected (Not Detect) Parainfluenza 3 (PCR) Not detected (Not Detect) Parainfluenza 4 (PCR) Not detected (Not Detect) RSV (PCR) Not detected (Not Detect) Entero/Rhino (PCR) Not detected (Not Detect) 02/16/21 Range/Units 04:20 WBC (4.5-11.0) X10^3/uL RBC (4.5-5.9) X10^6/uL Hgb (13.5-17.5) g/dL Hct (41-53) % MCV (80-100) fL MCH (26-34) PG MCHC (30-36) % RDW (11.6-14.8) % Plt Count (150-400) X10^3/uL Neut % (Auto) (50-75) % Lymph % (Auto) (25-40) % [place] % (Auto) (3-14) % Eos % (Auto) (2-4) % Baso % (Auto) (0-2) % Neut # (Auto) (2416-1169) /uL Lymph # (Auto) (9879-6169) /uL [place] # (Auto) (0-900) /uL Eos # (Auto) (0-450) /uL Baso # (Auto) (0-100) /uL D-Dimer (<230) ng/mL ABG pH 7.49 H (7.35-7.45) ABG pCO2 34.9 L (35-45) mmHg ABG pO2 61 L (80-100) mmHg ABG HCO3 27 H (22-26) mmol/L ABG Total CO2 28 (21-31) mmol/L ABG O2 Saturation 93 L (95-100) % ABG Base Excess 4.0 H (-2-2) mmol/L FiO2 75 Sodium (137-145) mmol/L Potassium (3.4-5.1) mmol/L Chloride (98-107) mmol/L Carbon Dioxide (22-32) mmol/L BUN (9-20) mg/dL Creatinine (0.66-1.25) mg/dL Estimated GFR (>60) mL/min BUN/Creatinine Ratio (6-22) Glucose (80-110) mg/dL Lactate (0.7-2.1) mmol/L Calcium (8.4-10.2) mg/dL Ferritin (18-464) ng/mL Total Bilirubin (0.2-1.3) mg/dL AST (17-59) IU/L ALT (<50) IU/L Alkaline Phosphatase (38-126) U/L Lactate Dehydrogenase (313-618) U/L Total Creatine Kinase (55-170) U/L CK-MB (CK-2) CK-MB (CK-2) Rel Index Troponin I (0.01-0.034) ng/mL C-Reactive Protein (<1.0) mg/dL NT-Pro-B Natriuret Pep (<125) pg/mL Total Protein (6.3-8.2) g/dL Albumin (3.5-5.0) g/dL Globulin (1.7-4.1) g/dL Albumin/Globulin Ratio (1.0-2.8) Procalcitonin (<0.5) ng/mL Chlamy pneumoniae PCR (Not Detect) Adenovirus (PCR) (Not Detect) B. pertussis DNA (PCR) (Not Detecte) B.parapertussis DNA PCR (Not Detecte) Coronavirus OC43 (PCR) (Not Detect) Coronavirus HKU1 (PCR) (Not Detect) Coronavirus 229E (PCR) (Not Detect) SARS-CoV-2 (PCR) (Not Detecte) Coronavirus NL63 (PCR) (Not Detect) Human Metapneumovir PCR (Not Detect) Influenza Type A (PCR) (Not Detect) Influenza Type B (PCR) (Not Detect) M. pneumoniae (PCR) (Not Detect) Parainfluenza 1 (PCR) (Not Detect) Parainfluenza 2 (PCR) (Not Detect) Parainfluenza 3 (PCR) (Not Detect) Parainfluenza 4 (PCR) (Not Detect) RSV (PCR) (Not Detect) Entero/Rhino (PCR) (Not Detect) Imaging Data Chest x-ray: Attestation: I personally reviewed and interpreted this imaging study as follows: My Impression: bilateral pneumonia Radiologist's Impression: bilateral pneumonia CT scan - chest: Radiologist's Impression: Or extensive bilateral pneumonia, no pulmonary embolism ECG Data Interpretation: initial EKG NSR with 1st degree block occurences of arrhythmia noted on monitor. EKG notes [place] Discharge Plan Departure Patient Disposition: Admitted As Inpatient Clinical Impression: Acute hypoxemic respiratory failure, COVID-19 Admit Date/Time: 02/16/21 05:59 Admit Provider: Caroline Winter
--- NOTE | 2021-02-16 03:24 | DI.RAD.S_ITS ---
PROCEDURE: XR CHEST 1V INDICATIONS: flu-like symptoms TECHNIQUE: One view of the chest was acquired. COMPARISON: [facility], CT, CT ANGIO CHEST PE PROTOCOL, 02/16/2021, 4:13. [facility], CR, XR CHEST 1V, 08/14/2019, 13:00. FINDINGS: Surgical changes and devices: None. Lungs and pleura: Extensive bilateral patchy airspace opacity. No pleural effusions or pneumothorax. Mediastinum: Mediastinal contours are partially obscured. Heart size is partially obscured. Contours appear similar to before. Bones and chest wall: No suspicious bony lesions. Overlying soft tissues appear unremarkable. IMPRESSION: Extensive bilateral patchy airspace opacity. Findings most suggestive of pneumonia. COVID-19 pneumonia could have this appearance. This report is concordant with the overnight preliminary interpretation. Dictated by: Christian Cevallos M.D. on 02/16/2021 at 8:01 Approved by: Christian Cevallos M.D. on 02/16/2021 at 8:03
[2021-02-16 03:32] LABS: Add Manual Diff / Slide Review NO; Basophils Absolute Auto 100 /uL (0-100); Eosinophils Absolute Auto 0 /uL (0-450); Eosinophils Percent Auto 0.5 % (2-4); Hematocrit 35.1 % (41-53); Hemoglobin 11.9 g/dL (13.5-17.5); Lymphocytes Absolute Auto 1100 /uL (1100-4500); Mean Corpuscular HGB Conc 33.8 % (30-36); Mean Corpuscular Hemoglobin 28.5 PG (26-34); Mean Corpuscular Volume 84.4 fL (80-100); Monocytes Absolute Auto 300 /uL (0-900); Monocytes Percent Auto 4.4 % (3-14); Neutrophils Absolute Auto 5100 /uL (1500-7000); Neutrophils Percent Auto 77.1 % (50-75); Platelet Count 407 X10^3/uL (150-400); Red Blood Cell Count 4.16 X10^6/uL (4.5-5.9); Red Cell Distribution Width 12.8 % (11.6-14.8); White Blood Cell Count 6.6 X10^3/uL (4.5-11.0)
[2021-02-16 03:44] LABS: Alanine Aminotransferase 40 IU/L (<50); Albumin 2.9 g/dL (3.5-5.0); Albumin Globulin Ratio 0.9 (1.0-2.8); Alkaline Phosphatase 51 U/L (38-126); Aspartate Aminotransferase 27 IU/L (17-59); BUN Creatinine Ratio 34.5 (6-22); Bilirubin Total 0.6 mg/dL (0.2-1.3); Blood Urea Nitrogen 41 mg/dL (9-20); Calcium 8.3 mg/dL (8.4-10.2); Carbon Dioxide 28 mmol/L (22-32); Chloride 99 mmol/L (98-107); Creatine Kinase 79 U/L (55-170); Estimated Glomerular Filt Rate > 60.0 mL/min (>60); Globulin 3.3 g/dL (1.7-4.1); Glucose 357 mg/dL (80-110); HEMOLYSIS < 15 (0-50); Lactate Dehydrogenase 894 U/L (313-618); Potassium 4.3 mmol/L (3.4-5.1); Sodium 131 mmol/L (137-145); Total Protein 6.2 g/dL (6.3-8.2)
[2021-02-16 03:53] LABS: NT-proBNP (BNP-Adult 18+) 650 pg/mL (<125); Troponin I < 0.012 ng/mL (0.01-0.034)
[2021-02-16 03:55] LABS: C-Reactive Protein Quant 21.5 mg/dL (<1.0)
[2021-02-16 03:57] LABS: D Dimer 2562 ng/mL (<230)
[2021-02-16 03:59] LABS: Procalcitonin 0.17 ng/mL (<0.5)
[2021-02-16] MEDS: DEXAMETHASONE 10 MG/ML VIAL 6 MG IV ×2 (03:59→09:06)
--- NOTE | 2021-02-16 04:00 | DI.CT.S_ITS ---
PROCEDURE: CT ANGIO CHEST PE PROTOCOL INDICATIONS: Severe shortness of breath, known COVID, critically elevated TECHNIQUE: After the administration of intravenous contrast, 2 mm thick sections acquired from the pulmonary apices to the posterior costophrenic angles. 3-dimensional maximum intensity projection (MIP) coronal and sagittal reformats were then acquired through the thorax. For radiation dose reduction, the following was used: automated exposure control, adjustment of mA and/or kV according to patient size. COMPARISON: [facility], CR, XR CHEST 1V, 08/14/2019, 13:00. [facility], CR, XR CHEST 1V, 02/16/2021, 3:39. FINDINGS: Image quality: Excellent. Pulmonary arteries: Pulmonary arteries are normal in size, and demonstrate no intraluminal filling defects to suggest central pulmonary embolism. Lungs and pleura: Lungs are clear. No pleural effusions or pneumothorax. Central and peripheral airways are patent. Mediastinum: Heart size is normal, without pericardial effusion. Mild coronary artery calcification. No mediastinal or hilar adenopathy. Thoracic aorta is normal in caliber and enhancement. Esophagus is normal in caliber, without hiatal hernia. Bones and chest wall: No suspicious bony lesions. Ribs and thoracic spine appear intact throughout. Thyroid gland is normal. No axillary or supraclavicular adenopathy. Abdomen: Visualized upper abdominal solid organs appear normal in the early arterial phase of enhancement. There are gallstones. IMPRESSION: 1. No evidence for pulmonary embolism. 2. Bilateral airspace infiltrates consistent with atypical pneumonia. 3. Mild coronary artery calcification. No significant discrepancy with the chemistry department chair radiology preliminary report. Dictated by: Hugo Yanez M.D. on 02/16/2021 at 7:35 Approved by: Hugo Yanez M.D. on 02/16/2021 at 7:37
[2021-02-16 04:16] LABS: Ferritin 391 ng/mL (18-464)
[2021-02-16] MEDS: REMDESIVIR 200 MG in SODIUM CHLORIDE 0.9% 210 ML 250 ML IV (04:30)
[2021-02-16 04:35] LABS: Adenovirus Not Detected (Not Detect)
[2021-02-16 04:36] LABS: B. parapertussis Not Detected (Not Detecte); Bordetella pertussis Not Detected (Not Detecte); Chlamydophila pneumoniae Not Detected (Not Detect); Coronavirus 229E Not Detected (Not Detect); Coronavirus HKU1 Not Detected (Not Detect); Coronavirus NL 63 Not Detected (Not Detect); Coronavirus OC43 Not Detected (Not Detect); Human Metapneumovirus Not Detected (Not Detect); Human Rhinovirus/Enterovirus Not Detected (Not Detect); Influenza A Not Detected (Not Detect); Influenza B Not Detected (Not Detect); Mycoplasma pneumoniae Not Detected (Not Detect); Parainfluenza Virus 1 Not Detected (Not Detect); Parainfluenza Virus 2 Not Detected (Not Detect); Parainfluenza Virus 3 Not Detected (Not Detect); Parainfluenza Virus 4 Not Detected (Not Detect); Respiratory Syncytial Virus Not Detected (Not Detect)
[2021-02-16 04:37] LABS: SARS- CoV-2 Detected (Not Detecte)
[2021-02-16 04:41] LABS: HCO3 ABG 27 mmol/L (22-26); Oxygen Saturation ABG 93 % (95-100); PCO2 ABG 34.9 mmHg (35-45); PO2 ABG 61 mmHg (80-100); TCO2 ABG 28 mmol/L (21-31); pH ABG 7.49 (7.35-7.45)
[2021-02-16 04:42] LABS: Fractionated Inspired Oxygen 75
[2021-02-16 08:08] LABS: Cholesterol 80 mg/dL (140-199); HDL Cholesterol 21 mg/dL (40-60); LDL Cholesterol Calculated 43 mg/dL (<100); Triglycerides 81 mg/dL (35-150)
--- NOTE | 2021-02-16 08:56 | CM.DANOTE ---
Addendum entered by Cristine Best R.N. 02/16/21 10:09: Discussed patient during team rounds. He is currently on high flow oxygen. Patient was not vaccinated, he had left [facility], as was stated in DC Summary according to Dr. Thrasher, and was on high flow oxygen there, and left against medical advise. Patient will remain here at the hospital until he is medically stable and not in need of oxygen. Original Note: DCP: Case received, EMR received. Patient is in isolation with COVID, unable to meet with patient. Completed DCP assessment based on information currently available in chart. Patient is a 65 year old male who admitted early this morning to the care of the hospitalist team. PCP: Dr. Collins. Payer: confirmed: Charito Khalil. Patient came to the hospital via private vehicle secondary to having increased shortness of breath, as well as weakness and malaise. Patient had been diagnosed with COVID 19, and had been admitted to an outside facility, leaving A. Patient had been managing at home, but symptoms developed and worsened. He is here for acute hypoxemic respiratory failure/pneumonia. Have not met with patient secondary to his having COVID. He resides in [place] with spouse, Jorge. He has history of diabetes, as well as HTN. P: DCP to continue to follow patient. Will discuss further during team rounds. Patient should be able to go home when he is deemed medically stable. Cristine Best RN/Swaging Machine Operator Discharge Planning/Care Management CM Discharge Assessment Start: 02/16/21 08:54 Freq: Status: Active Protocol: Document 02/16/21 08:55 (Rec: 02/16/21 08:56 [id number]) Discharge Planning Assessment Assigned Vehicle Service Attendant Cristine Best RN/Swaging Machine Operator Advance Directives? No History Provided By Patient,Medical Record Prior Living Arrangements House Household Members spouse Type of transporation used prior to Drives own vehicle admit Independent with ADL's Yes Is patient alert and oriented? Yes Caregiver for Another No Barriers to Discharge No Discharge Plan Home Transportation Arrangement Spouse Referrals Initiated None needed Whiteboard Updated in Patient Room with Yes name and ext. # of Vehicle Service Attendant Review Status In Process Next Review Type Continued Stay Review
[2021-02-16] MEDS: INSULIN LISPRO 100 UNIT/ML 3ML VIAL 8 UNIT SUBCUT ×3 (08:59→17:21)
[2021-02-16] MEDS: ASPIRIN EC 81 MG TABLET PO (09:05)
[2021-02-16] MEDS: INSULIN LISPRO 100 UNIT/ML 3ML VIAL SUBCUT ×4 (09:05→22:00)
[2021-02-16] MEDS: INSULIN GLARGINE 100 UNIT/ML 3ML PEN 20 UNIT SUBCUT (09:05)
[2021-02-16] MEDS: DOCUSATE 100 MG CAPSULE PO ×2 (09:05→21:59)
[2021-02-16] MEDS: AMLODIPINE 5 MG TABLET 10 MG PO (09:05)
[2021-02-16] MEDS: FAMOTIDINE 20 MG/2 ML VIAL IV ×2 (09:06→21:59)
[2021-02-16] MEDS: lisinopriL 20 MG TABLET 40 MG PO (09:06)
[2021-02-16] MEDS: BARICITINIB 2 MG TABLET 4 MG PO (09:06)
[2021-02-16] MEDS: ENOXAPARIN 40 MG/0.4 ML SYRINGE SUBCUT (09:07)
--- NOTE | 2021-02-16 09:20 | DIET.CONS ---
Dietary Consultation Note Admission Date: 02/16/2021 05:59 RD Note: Kitchen sending up ONS Ensure Max c lunches to support high PRO needs in this covid+ obese patient with uncontrolled DM2. Ht: 172.72 cm Wt: 106.594 kg BMI: 35.7 Last BM: 02/13/21 (02/16/21 06:30) MNA: 12 Jj Score: 22 Diet: 02/16/21 Breakfast Carbohydrate Consistent Diet Diet Modifications: ONS Ensure Max c lunch Carbohydrate level: Large (4 CHO) Percent of last meal consumed (last 48h) Percent Meal Consumed 100% 02/16/21 08:45 Labs: RBC 4.16 X10^6/uL (4.5-5.9) L 02/16/21 03:20 Hgb 11.9 g/dL (13.5-17.5) L 02/16/21 03:20 Hct 35.1 % (41-53) L 02/16/21 03:20 Creatinine 1.19 mg/dL (0.66-1.25) 02/16/21 03:20 Hemoglobin A1c 12.0 % (4.0-6.0) H 02/16/21 03:20 Lactate 2.0 mmol/L (0.7-2.1) 02/16/21 03:20 Ferritin 391 ng/mL (18-464) 02/16/21 03:20 NT-Pro-B Natriuret Pep 650 pg/mL (<125) H 02/16/21 03:20
--- NOTE | 2021-02-16 10:53 | P.HP_ITS ---
History of Present Illness History of Present Illness Date Patient Seen: 02/16/21 Time Patient Seen: 10:53 Chief complaint: Oxygen levels are low Narrative: This is a 65-year-old male with a past medical history of obesity, diabetes, hypertension, and hyperlipidemia who was recently admitted to an outside hospital from February 10 to February 14 with COVID pneumonia, requiring heated high-flow with 50 L at 40% FiO2 according to documentation. The patient decided to leave against medical advice, despite the fact that he continued to desaturate while on maximal nasal cannula. He returned to the emergency room here with continued shortness of breath and respiratory distress. He was restarted on heated high-flow with improvement. He was admitted to [facility] for further management. CTA showed no PE. CXR and remainder of imaging showing bilateral infiltrates consistent with COVID 19 pneumonia. Patient History Medical History (Updated 02/16/21 @ 10:54 by Javid Thrasher DO) Diabetes HLD (hyperlipidemia) HTN (hypertension) Surgical History (Updated 02/16/21 @ 10:54 by Javid Thrasher DO) H/O knee surgery H/O shoulder surgery Family & Social History Family History (Updated 02/16/21 @ 10:55 by Javid Thrasher DO) Grandfather Diabetes mellitus Brother Hypertension Sister Hypertension Social History: household members spouse Prior Living Arrangements House Safety & Behavioral: Feels Safe in Current Yes Environment Been Physically Hurt or No Threatened By a Person Suicidal Ideation Description None Suicide Plan Description No Plan Tobacco & Substance use: Smoking Status Never smoker alcohol intake former alcohol intake frequency holiday/special occasion Substance Use Type does not use Meds Home Medications and Allergies Home Medications Medication Instructions Recorded Confirmed Type aspirin 81 mg tablet,delayed 81 mg PO DAILY 04/07/19 02/16/21 History release amlodipine 10 mg tablet 10 mg PO DAILY 02/16/21 02/16/21 History atorvastatin 40 mg tablet 40 mg PO QPM 02/16/21 02/16/21 History chlorthalidone 25 mg tablet 25 mg PO DAILY 02/16/21 02/16/21 History hydralazine 100 mg tablet 100 mg PO TID 02/16/21 02/16/21 History insulin glargine 100 unit/mL (3 40 unit SUBCUT DAILY 02/16/21 02/16/21 History mL) subcutaneous pen lisinopril 20 mg tablet 40 mg PO QPM 02/16/21 02/16/21 History metformin 500 mg tablet,extended 500 mg PO DAILY 02/16/21 02/16/21 History release 24 hr nystatin 100,000 unit/gram topical 1 applic TOPICAL BID PRN 02/16/21 02/16/21 History powder Allergies Allergy/AdvReac Type Severity Reaction Status Date / Time No Known Drug Allergies Allergy Verified 08/14/19 12:38 Review of Systems Review of Systems Narrative: All other systems reviewed with the patient and are negative unless otherwise stated. Exam Vital Signs (past 8 hours): - 02/16/21 03:05 02/16/21 03:08 02/16/21 03:37 Temperature 97.6 F Pulse Rate 70 71 Respiratory Rate 25 H 24 Blood Pressure 145/64 H 145/64 H Pulse Oximetry 60 L 88 L 92 02/16/21 04:11 02/16/21 04:15 02/16/21 04:25 Temperature Pulse Rate 66 62 64 Respiratory Rate 20 28 H 27 H Blood Pressure 129/64 Pulse Oximetry 90 L 93 91 02/16/21 04:30 02/16/21 04:35 02/16/21 04:36 Temperature Pulse Rate 65 64 Respiratory Rate 21 33 H Blood Pressure 137/60 144/64 H Pulse Oximetry 86 L 87 L 02/16/21 05:00 02/16/21 05:30 02/16/21 05:31 Temperature Pulse Rate 60 57 L 57 L Respiratory Rate 24 28 H 34 H Blood Pressure 147/64 H 161/67 H Pulse Oximetry 89 L 92 90 L 02/16/21 06:01 02/16/21 06:30 02/16/21 06:50 Temperature 96.7 F L Pulse Rate 57 L 62 56 L Respiratory Rate 23 38 H 28 H Blood Pressure 124/65 155/67 H 155/67 H Pulse Oximetry 90 L 95 96 02/16/21 07:57 02/16/21 08:00 02/16/21 09:00 Temperature 97.0 F L Pulse Rate 61 52 L 59 L Respiratory Rate 28 H 15 24 Blood Pressure 139/62 139/62 128/58 L Pulse Oximetry 97 95 97 02/16/21 10:00 02/16/21 10:43 Temperature Pulse Rate 64 53 L Respiratory Rate 31 H 28 H Blood Pressure 122/56 L 122/56 L Pulse Oximetry 99 95 Fraction of Inspired Oxygen 0.78 Oxygen Delivery Method Heated High Flow Oxygen Flow Rate 50 Narrative Exam Narrative: GENERAL APPEARANCE: Well developed, well nourished, in no acute distress. Proning on heated high flow. SKIN: Inspection of the skin reveals no rashes, ulcerations or petechiae. HEENT: Normocephalic atraumatic, extraocular muscles are intact, oropharynx is clear and mucous membranes are moist, neck is supple without adenopathy NECK: Supple and symmetric. There was no thyroid enlargement, and no tenderness, or masses were felt. CHEST: Normal AP diameter and normal contour without any kyphoscoliosis. LUNGS: Auscultation of the lungs revealed no wheezes, rhonchi, or rales. CARDIOVASCULAR: There was a regular rate and rhythm without any murmurs, gallops, rubs. Peripheral pulses were 2+ and symmetric. ABDOMEN: unable to assess while proning, no reported tenderness. MUSCULOSKELETAL: There was no tenderness or effusions noted. Muscle strength and tone were normal. EXTREMITIES: No cyanosis, clubbing or edema. NEUROLOGIC: Alert and oriented x 3. Normal affect. Strength is +5/5 in the Upper Extremities and Lower Extremities Bilaterally. Objective ECG Impression: 1st - primary block, LAD, no ischemia 2nd - second degree type 1 (wencheback) AV block, LAD, no ischemia Labs Result Diagrams: 02/16/21 03:20 02/16/21 03:20 Labs: Laboratory Results - last 24 hr 02/16/21 02/16/21 02/16/21 03:20 03:20 03:20 WBC 6.6 RBC 4.16 L Hgb 11.9 L Hct 35.1 L MCV 84.4 MCH 28.5 MCHC 33.8 RDW 12.8 Plt Count 407 H Neut % (Auto) 77.1 H Lymph % (Auto) 17.0 L [place] % (Auto) 4.4 Eos % (Auto) 0.5 L Baso % (Auto) 1.0 Neut # (Auto) 5100 Lymph # (Auto) 1100 [place] # (Auto) 300 Eos # (Auto) 0 Baso # (Auto) 100 D-Dimer 2562 H ABG pH ABG pCO2 ABG pO2 ABG HCO3 ABG Total CO2 ABG O2 Saturation ABG Base Excess FiO2 Sodium Potassium Chloride Carbon Dioxide BUN Creatinine Estimated GFR BUN/Creatinine Ratio Glucose Hemoglobin A1c Lactate Calcium Ferritin Total Bilirubin AST ALT Alkaline Phosphatase Lactate Dehydrogenase Total Creatine Kinase CK-MB (CK-2) CK-MB (CK-2) Rel Index Troponin I C-Reactive Protein NT-Pro-B Natriuret Pep Total Protein Albumin Globulin Albumin/Globulin Ratio Triglycerides Cholesterol LDL Cholesterol, Calc HDL Cholesterol Procalcitonin 0.17 Nasal Screen MRSA (PCR) Chlamy pneumoniae PCR Adenovirus (PCR) B. pertussis DNA (PCR) B.parapertussis DNA PCR Coronavirus OC43 (PCR) Coronavirus HKU1 (PCR) Coronavirus 229E (PCR) SARS-CoV-2 (PCR) Coronavirus NL63 (PCR) Human Metapneumovir PCR Influenza Type A (PCR) Influenza Type B (PCR) M. pneumoniae (PCR) Parainfluenza 1 (PCR) Parainfluenza 2 (PCR) Parainfluenza 3 (PCR) Parainfluenza 4 (PCR) RSV (PCR) Entero/Rhino (PCR) 02/16/21 02/16/21 02/16/21 03:20 03:20 03:20 WBC RBC Hgb Hct MCV MCH MCHC RDW Plt Count Neut % (Auto) Lymph % (Auto) [place] % (Auto) Eos % (Auto) Baso % (Auto) Neut # (Auto) Lymph # (Auto) [place] # (Auto) Eos # (Auto) Baso # (Auto) D-Dimer ABG pH ABG pCO2 ABG pO2 ABG HCO3 ABG Total CO2 ABG O2 Saturation ABG Base Excess FiO2 Sodium 131 L Potassium 4.3 Chloride 99 Carbon Dioxide 28 BUN 41 H Creatinine 1.19 Estimated GFR > 60.0 BUN/Creatinine Ratio 34.5 H Glucose 357 H Hemoglobin A1c 12.0 H Lactate 2.0 Calcium 8.3 L Ferritin 391 Total Bilirubin 0.6 AST 27 ALT 40 Alkaline Phosphatase 51 Lactate Dehydrogenase 894 H Total Creatine Kinase 79 CK-MB (CK-2) TNP CK-MB (CK-2) Rel Index TNP Troponin I < 0.012 C-Reactive Protein 21.5 H NT-Pro-B Natriuret Pep 650 H Total Protein 6.2 L Albumin 2.9 L Globulin 3.3 Albumin/Globulin Ratio 0.9 L Triglycerides Cholesterol LDL Cholesterol, Calc HDL Cholesterol Procalcitonin Nasal Screen MRSA (PCR) Chlamy pneumoniae PCR Adenovirus (PCR) B. pertussis DNA (PCR) B.parapertussis DNA PCR Coronavirus OC43 (PCR) Coronavirus HKU1 (PCR) Coronavirus 229E (PCR) SARS-CoV-2 (PCR) Coronavirus NL63 (PCR) Human Metapneumovir PCR Influenza Type A (PCR) Influenza Type B (PCR) M. pneumoniae (PCR) Parainfluenza 1 (PCR) Parainfluenza 2 (PCR) Parainfluenza 3 (PCR) Parainfluenza 4 (PCR) RSV (PCR) Entero/Rhino (PCR) 02/16/21 02/16/21 02/16/21 03:20 03:33 04:20 WBC RBC Hgb Hct MCV MCH MCHC RDW Plt Count Neut % (Auto) Lymph % (Auto) [place] % (Auto) Eos % (Auto) Baso % (Auto) Neut # (Auto) Lymph # (Auto) [place] # (Auto) Eos # (Auto) Baso # (Auto) D-Dimer ABG pH 7.49 H ABG pCO2 34.9 L ABG pO2 61 L ABG HCO3 27 H ABG Total CO2 28 ABG O2 Saturation 93 L ABG Base Excess 4.0 H FiO2 75 Sodium Potassium Chloride Carbon Dioxide BUN Creatinine Estimated GFR BUN/Creatinine Ratio Glucose Hemoglobin A1c Lactate Calcium Ferritin Total Bilirubin AST ALT Alkaline Phosphatase Lactate Dehydrogenase Total Creatine Kinase CK-MB (CK-2) CK-MB (CK-2) Rel Index Troponin I C-Reactive Protein NT-Pro-B Natriuret Pep Total Protein Albumin Globulin Albumin/Globulin Ratio Triglycerides 81 Cholesterol 80 L LDL Cholesterol, Calc 43 HDL Cholesterol 21 L Procalcitonin Nasal Screen MRSA (PCR) Chlamy pneumoniae PCR Not detected Adenovirus (PCR) Not detected B. pertussis DNA (PCR) Not detected B.parapertussis DNA PCR Not detected Coronavirus OC43 (PCR) Not detected Coronavirus HKU1 (PCR) Not detected Coronavirus 229E (PCR) Not detected SARS-CoV-2 (PCR) Detected H Coronavirus NL63 (PCR) Not detected Human Metapneumovir PCR Not detected Influenza Type A (PCR) Not detected Influenza Type B (PCR) Not detected M. pneumoniae (PCR) Not detected Parainfluenza 1 (PCR) Not detected Parainfluenza 2 (PCR) Not detected Parainfluenza 3 (PCR) Not detected Parainfluenza 4 (PCR) Not detected RSV (PCR) Not detected Entero/Rhino (PCR) Not detected 02/16/21 06:40 WBC RBC Hgb Hct MCV MCH MCHC RDW Plt Count Neut % (Auto) Lymph % (Auto) [place] % (Auto) Eos % (Auto) Baso % (Auto) Neut # (Auto) Lymph # (Auto) [place] # (Auto) Eos # (Auto) Baso # (Auto) D-Dimer ABG pH ABG pCO2 ABG pO2 ABG HCO3 ABG Total CO2 ABG O2 Saturation ABG Base Excess FiO2 Sodium Potassium Chloride Carbon Dioxide BUN Creatinine Estimated GFR BUN/Creatinine Ratio Glucose Hemoglobin A1c Lactate Calcium Ferritin Total Bilirubin AST ALT Alkaline Phosphatase Lactate Dehydrogenase Total Creatine Kinase CK-MB (CK-2) CK-MB (CK-2) Rel Index Troponin I C-Reactive Protein NT-Pro-B Natriuret Pep Total Protein Albumin Globulin Albumin/Globulin Ratio Triglycerides Cholesterol LDL Cholesterol, Calc HDL Cholesterol Procalcitonin Nasal Screen MRSA (PCR) Negative for mrsa Chlamy pneumoniae PCR Adenovirus (PCR) B. pertussis DNA (PCR) B.parapertussis DNA PCR Coronavirus OC43 (PCR) Coronavirus HKU1 (PCR) Coronavirus 229E (PCR) SARS-CoV-2 (PCR) Coronavirus NL63 (PCR) Human Metapneumovir PCR Influenza Type A (PCR) Influenza Type B (PCR) M. pneumoniae (PCR) Parainfluenza 1 (PCR) Parainfluenza 2 (PCR) Parainfluenza 3 (PCR) Parainfluenza 4 (PCR) RSV (PCR) Entero/Rhino (PCR) Assessment & Plan Assessment & Plan narrative: This is a 65-year-old male with a past medical history of obesity, type 2 diabetes, hypertension, and hyperlipidemia who was admitted with acute respiratory failure secondary to COVID-19 pneumonia requiring heated high-flow nasal cannula. 1. Acute respiratory failure with hypoxia secondary to COVID-19 pneumonia - continue remdesevir, decadron, and baricitinib. - continue supplemental oxygen, proning as much as possible. Can use pain medications to supplement ability to prone. Goal O2 while on supplemental therapy is 90-96%. - currently on heated high flow, patient does not wish to be intubated if necessary. - CTA negative for PE. - patient unvaccinated. 2. Type 2 diabetes - A1c 12.0%. Per outside records resume prior insulin dosing with 20 units AM, 25 units PM, 8 U lispro TID with meals and sliding scale. - continue to adjust as needed. 3. Hypertension, chronic - continue home medications 4. Hyperlipidemia - continue home medications. 5. Obesity with BMI 35. - dietary consultation. Obesity puts patient at much greater risk of morbidity and mortality from his COVID infection. 6. 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 Keep Mg >2, K>4. consider cardiology. block was seen on EKG performed 02/16. - no chest pain or dizziness, no elevation in troponin Code: DNR/ DNI as discussed with patient. Surrogate decision maker is the patient's . Dispo: admitted to ICU for heated high low nasal cannula. I spent 33 minutes over the course of the day providing critical care management this patient. This excludes time spent in performing separately billed procedures. I have utilized all available immediate resources to obtain, update, or review the patient's current medications. Time Spent With Patient Critical Care time: I spent a total of [] minutes of critical care time on this patient's care today; this time is exclusive of procedural time. Quality VTE Deep Vein Thrombosis/Pulmonary Embolism Present on Admission: No MIPS - Admit I confirm the patient?s Advance Care Plan is present, Code status is documented, Surrogate decision maker is in patient?s record [If Yes, STOP here]: Yes
--- NOTE | 2021-02-16 13:50 | DI.RAD.S_ITS ---
PROCEDURE: XR CHEST 1V INDICATIONS: verify PICC placement (COVID POS) TECHNIQUE: One view of the chest was acquired. COMPARISON: [facility], CR, XR CHEST 1V, 02/16/2021, 3:39. FINDINGS: Surgical changes and devices: Left arm PICC line projects to distal SVC. Lungs and pleura: Visualized portions of the lungs demonstrate extensive bilateral pulmonary infiltrates.. pneumothorax. IMPRESSION: Limited imaging demonstrates that the PICC line tip projects to the distal SVC. There are extensive bilateral pulmonary infiltrates. Dictated by: Anastacio Mitchell M.D. on 02/16/2021 at 14:26 Approved by: Anastacio Mitchell M.D. on 02/16/2021 at 14:29
--- NOTE | 2021-02-16 14:57 | PC.NURSE ---
Day Shift Note Pt on heated HFNC 50L and FiO2 75% all shift. Instructed on importance of proning and coughing/deep breathing, pt acknowledges understanding and is agreeable to plan of care. Proning in between procedures and meals, tolerating well with SpO2 99%. Desats to 88-92% SpO2 when sitting up, desats to low 80s with activity. Puri catheter placed per MD order and PICC line placed by DI nurse.
--- NOTE | 2021-02-16 20:41 | PM.ICURNDS ---
- :: This patient was seen via real time interactive two-way audiovisual telecommunication. Note: Patient doing well with self awake proning. He is currently requiring HFNC 50L 65%. Vitals stable
[2021-02-16] MEDS: HYDRALAZINE 25 MG TABLET 100 MG PO (21:58)
[2021-02-16] MEDS: MAGNESIUM HYDROXIDE 30 ML UDC PO (21:59)
[2021-02-16] MEDS: LIDOCAINE PATCH 1 EACH ADH..PATCH TOP (21:59)
[2021-02-16] MEDS: ATORVASTATIN 20 MG TABLET 40 MG PO (21:59)
[2021-02-16] MEDS: INSULIN GLARGINE 100 UNIT/ML 3ML PEN 25 UNIT SUBCUT (22:00)
[2021-02-17] VITALS (46 sets, daily range): BP systolic 113–145; BP diastolic 54–71; PULSE 39–86; RESP 0–53; TEMP 36.3–36.9; O2SAT 65–99
[2021-02-17 05:51] LABS: Add Manual Diff / Slide Review NO; Basophils Absolute Auto 0 /uL (0-100); Basophils Percent Auto 0.3 % (0-2); Eosinophils Absolute Auto 0 /uL (0-450); Hematocrit 31.2 % (41-53); Hemoglobin 10.3 g/dL (13.5-17.5); Lymphocytes Absolute Auto 1400 /uL (1100-4500); Lymphocytes Percent Auto 11.6 % (25-40); Mean Corpuscular HGB Conc 33.1 % (30-36); Mean Corpuscular Volume 84.6 fL (80-100); Monocytes Absolute Auto 500 /uL (0-900); Monocytes Percent Auto 4.5 % (3-14); Neutrophils Absolute Auto 9900 /uL (1500-7000); Neutrophils Percent Auto 83.6 % (50-75); Platelet Count 406 X10^3/uL (150-400); Red Blood Cell Count 3.68 X10^6/uL (4.5-5.9); Red Cell Distribution Width 12.9 % (11.6-14.8); White Blood Cell Count 11.8 X10^3/uL (4.5-11.0)
[2021-02-17 06:02] LABS: Alanine Aminotransferase 38 IU/L (<50); Albumin 2.6 g/dL (3.5-5.0); Albumin Globulin Ratio 0.8 (1.0-2.8); Alkaline Phosphatase 42 U/L (38-126); Aspartate Aminotransferase 30 IU/L (17-59); BUN Creatinine Ratio 41.9 (6-22); Bilirubin Total 0.3 mg/dL (0.2-1.3); Blood Urea Nitrogen 44 mg/dL (9-20); Calcium 8.4 mg/dL (8.4-10.2); Carbon Dioxide 33 mmol/L (22-32); Chloride 104 mmol/L (98-107); Estimated Glomerular Filt Rate > 60.0 mL/min (>60); Globulin 3.1 g/dL (1.7-4.1); Glucose 240 mg/dL (80-110); HEMOLYSIS < 15 (0-50); Potassium 4.8 mmol/L (3.4-5.1); Sodium 135 mmol/L (137-145); Total Protein 5.7 g/dL (6.3-8.2)
[2021-02-17 06:18] LABS: Procalcitonin 0.09 ng/mL (<0.5)
--- NOTE | 2021-02-17 06:43 | PC.NURSE ---
Instructor Creeler Note-Patient has been proning most of the night, or side-lying, on back briefly, SpO2 > 90% except while sitting at side of bed, he was 83-90%, RR 20s, lung sounds clear/coarse. HHFNC 50L/65% FIO2. VSS, remains in SB/SR 2nd degree block, Type I.
[2021-02-17] MEDS: HYDRALAZINE 25 MG TABLET 100 MG PO (09:08)
[2021-02-17] MEDS: INSULIN LISPRO 100 UNIT/ML 3ML VIAL SUBCUT ×4 (09:09→22:22)
[2021-02-17] MEDS: INSULIN GLARGINE 100 UNIT/ML 3ML PEN 20 UNIT SUBCUT (09:10)
[2021-02-17] MEDS: INSULIN LISPRO 100 UNIT/ML 3ML VIAL 8 UNIT SUBCUT ×3 (09:10→16:59)
[2021-02-17] MEDS: ASPIRIN EC 81 MG TABLET PO (09:11)
[2021-02-17] MEDS: lisinopriL 20 MG TABLET 40 MG PO (09:11)
[2021-02-17] MEDS: BARICITINIB 2 MG TABLET 4 MG PO (09:11)
[2021-02-17] MEDS: AMLODIPINE 5 MG TABLET 10 MG PO (09:11)
[2021-02-17] MEDS: FAMOTIDINE 20 MG/2 ML VIAL IV (09:13)
[2021-02-17] MEDS: DOCUSATE 100 MG CAPSULE PO ×2 (09:14→21:56)
[2021-02-17] MEDS: DEXAMETHASONE 10 MG/ML VIAL 6 MG IV (09:14)
[2021-02-17] MEDS: ENOXAPARIN 40 MG/0.4 ML SYRINGE SUBCUT (09:15)
[2021-02-17] MEDS: SODIUM CHLORIDE 0.9% FLUSH 10 ML IV (09:15)
[2021-02-17] MEDS: REMDESIVIR 100 MG in SODIUM CHLORIDE 0.9% 230 ML 250 ML IV (09:15)
--- NOTE | 2021-02-17 11:50 | PM.PN.1 ---
Subjective Subjective Date Patient Seen: 02/17/21 Time Patient Seen: 11:50 Interval history: No complaints today, heated high flow amounts fairly stable over the course of the day. Denies chest pain, nausea, vomiting, abdominal pain, LE edema. Exam Vital Signs (past 8 hours): - 02/17/21 04:01 02/17/21 04:23 02/17/21 05:57 Temperature 97.3 F L Pulse Rate 60 52 L 51 L Respiratory Rate 19 23 22 Blood Pressure 134/64 134/64 134/64 Pulse Oximetry 91 97 99 02/17/21 08:00 02/17/21 09:25 02/17/21 11:39 Temperature 97.8 F Pulse Rate 66 65 59 L Respiratory Rate 19 22 20 Blood Pressure 121/56 L 121/56 L 121/56 L Pulse Oximetry 92 65 L 95 Fraction of Inspired Oxygen 68 Oxygen Delivery Method Heated High Flow Oxygen Flow Rate 50 Narrative Exam Narrative: GENERAL APPEARANCE: Well developed, well nourished, in no acute distress. Proning on heated high flow. SKIN: Inspection of the skin reveals no rashes, ulcerations or petechiae. HEENT:? Normocephalic atraumatic, extraocular muscles are intact, oropharynx is clear and mucous membranes are moist, neck is supple without adenopathy NECK: Supple and symmetric. There was no thyroid enlargement, and no tenderness, or masses were felt. CHEST: Normal AP diameter and normal contour without any kyphoscoliosis. LUNGS: Auscultation of the lungs revealed no wheezes, rhonchi, or rales. CARDIOVASCULAR: There was a regular rate and rhythm without any murmurs, gallops, rubs. Peripheral pulses were 2+ and symmetric. ABDOMEN: unable to assess while proning, no reported tenderness. MUSCULOSKELETAL: There was no tenderness or effusions noted. Muscle strength and tone were normal. EXTREMITIES: No cyanosis, clubbing or edema. NEUROLOGIC: Alert and oriented x 3. Normal affect. Strength is +5/5 in the Upper Extremities and Lower Extremities Bilaterally. Objective Labs Result Diagrams: 02/17/21 05:40 02/17/21 05:40 Labs: Laboratory Results - last 24 hr 02/17/21 02/17/21 02/17/21 05:40 05:40 05:40 WBC 11.8 H D RBC 3.68 L Hgb 10.3 L Hct 31.2 L MCV 84.6 MCH 28.0 MCHC 33.1 RDW 12.9 Plt Count 406 H Neut % (Auto) 83.6 H Lymph % (Auto) 11.6 L [place] % (Auto) 4.5 Eos % (Auto) 0.0 L Baso % (Auto) 0.3 Neut # (Auto) 9900 H Lymph # (Auto) 1400 [place] # (Auto) 500 Eos # (Auto) 0 Baso # (Auto) 0 Sodium 135 L Potassium 4.8 Chloride 104 Carbon Dioxide 33 H BUN 44 H Creatinine 1.05 Estimated GFR > 60.0 BUN/Creatinine Ratio 41.9 H Glucose 240 H D Calcium 8.4 Total Bilirubin 0.3 AST 30 ALT 38 Alkaline Phosphatase 42 Total Protein 5.7 L Albumin 2.6 L Globulin 3.1 Albumin/Globulin Ratio 0.8 L Procalcitonin 0.09 PFSH Medical History (Updated 02/16/21 @ 10:54 by Javid Thrasher DO) Diabetes HLD (hyperlipidemia) HTN (hypertension) Surgical History (Updated 02/16/21 @ 10:54 by Javid Thrasher DO) H/O knee surgery H/O shoulder surgery Family History (Updated 02/16/21 @ 10:55 by Javid Thrasher DO) Grandfather Diabetes mellitus Brother Hypertension Sister Hypertension Social History household members: spouse Smoking Status: Never smoker alcohol intake: former Assessment & Plan Assessment & Plan narrative: This is a 65-year-old male with a past medical history of obesity, type 2 diabetes, hypertension, and hyperlipidemia who was admitted with acute respiratory failure secondary to COVID-19 pneumonia requiring heated high-flow nasal cannula. 1. Acute respiratory failure with hypoxia secondary to COVID-19 pneumonia ?- continue remdesevir, decadron, and baricitinib. ?- continue supplemental oxygen, proning as much as possible. Can use pain medications to supplement ability to prone. Goal O2 while on supplemental therapy is 90-96%. ?- currently on heated high flow, patient does not wish to be intubated if necessary. He is doing very well proning thus far. ?- CTA negative for PE. ?- patient unvaccinated. 2. Type 2 diabetes ?- A1c 12.0%. Per outside records resume prior insulin dosing with 20 units AM, 25 units PM, 8 U lispro TID with meals and sliding scale. With this, AM sugar still around 240 today. Will increase night dosing tonight to 30 units. ?- continue to adjust as needed. 3. Hypertension, chronic ?- continue home medications ? 4. Hyperlipidemia ?- continue home medications. 5. Obesity with BMI 35. ?- dietary consultation. Obesity puts patient at much greater risk of morbidity and mortality from his COVID infection. 6. 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 Keep Mg >2, K>4. consider cardiology. block was seen on EKG performed 02/16. ?- no chest pain or dizziness, no elevation in troponin Code: DNR/ DNI as discussed with patient. Surrogate decision maker is the patient's . Dispo: admitted to ICU for heated high low nasal cannula. Time Spent With Patient Critical Care time: I spent a total of [] minutes of critical care time on this patient's care today; this time is exclusive of procedural time. Quality VTE Deep Vein Thrombosis/Pulmonary Embolism Present on Admission: No
--- NOTE | 2021-02-17 11:56 | CM.DPC ---
DCP Cont: Discussed patient during team rounds. He continues to be on high flow oxygen, and is proning well. He has been compliant with care. Confirmed that he is DNR/DNI. P: DCP to continue to follow for any needs. Anticipate that patient will be here for several days. Home is the plan when he is deemed medically stable. Cristine Best RN/Department Store Salesperson
[2021-02-17] MEDS: LIDOCAINE PATCH 1 EACH ADH..PATCH TOP (14:53)
[2021-02-17] MEDS: MAGNESIUM HYDROXIDE 30 ML UDC PO (17:00)
--- NOTE | 2021-02-17 20:29 | PC.NURSE ---
Addendum entered by Savana Mendieta R.N. 02/17/21 23:42: Patient very concerned about receiving the Covid. Reinforced to patient that he did, in fact, test positive for Covid-19. Came to understanding that he means he doesn't wish to receive the vaccine or any medications that will change my DNA. Educated that the vaccine does not change DNA, and that he will not receive anything against his will. Pt. verbalizes understanding. Original Note: Report received, care assumed 1530. FiO2 45%, 50 lpm HFNC. Pt. proning. Bradycardia with 2nd degree Type 1 Block; this is consistent with pt's baseline. Otherwise VSS. Lung sounds clear. Pt denies pain, states breathing is comfortable. Able to reposition self, including between prone and supine, independently. Up to edge of bed for dinner, tolerated well. Moved to Room 230 for reverse isolation capabilities. Oxygen pressure reduced to 40% but pt desaturating 85-89%; oxygen increased again by RT to 45%. Pt. proning again, tolerating well.
--- NOTE | 2021-02-17 21:27 | PM.ICURNDS ---
- :: This patient was seen via real time interactive two-way audiovisual telecommunication. Note: Patient doing better. His oxygen requirement has improved from 50L 65% yesterday to 50L 40% today. He continues to self prone. Vitals stable. Continue with decadron, Baricitinib, and Remdesivir for COVID PNA.
[2021-02-17] MEDS: ATORVASTATIN 20 MG TABLET 40 MG PO (21:56)
[2021-02-17] MEDS: FAMOTIDINE 20 MG TABLET PO (21:56)
[2021-02-17] MEDS: INSULIN GLARGINE 100 UNIT/ML 3ML PEN 30 UNIT SUBCUT (22:25)
[2021-02-18] VITALS (29 sets, daily range): BP systolic 100–163; BP diastolic 51–84; PULSE 43–94; RESP 11–45; TEMP 36.4–37; O2SAT 87–98
[2021-02-18] MEDS: INSULIN GLARGINE 100 UNIT/ML 3ML PEN 20 UNIT SUBCUT (08:47)
[2021-02-18] MEDS: INSULIN LISPRO 100 UNIT/ML 3ML VIAL 8 UNIT SUBCUT ×3 (08:48→16:47)
[2021-02-18] MEDS: AMLODIPINE 5 MG TABLET 10 MG PO (08:49)
[2021-02-18] MEDS: BARICITINIB 2 MG TABLET 4 MG PO (08:50)
[2021-02-18] MEDS: DEXAMETHASONE 10 MG/ML VIAL 6 MG IV (08:50)
[2021-02-18] MEDS: ASPIRIN EC 81 MG TABLET PO (08:50)
[2021-02-18] MEDS: SODIUM CHLORIDE 0.9% FLUSH 10 ML IV ×3 (08:51→20:56)
[2021-02-18] MEDS: DOCUSATE 100 MG CAPSULE PO ×2 (08:51→20:49)
[2021-02-18] MEDS: ENOXAPARIN 40 MG/0.4 ML SYRINGE SUBCUT (08:51)
[2021-02-18] MEDS: MAGNESIUM HYDROXIDE 30 ML UDC PO ×2 (08:52→20:55)
[2021-02-18] MEDS: lisinopriL 20 MG TABLET 40 MG PO (08:52)
[2021-02-18] MEDS: FAMOTIDINE 20 MG TABLET PO ×2 (08:52→20:50)
[2021-02-18] MEDS: REMDESIVIR 100 MG in SODIUM CHLORIDE 0.9% 230 ML 250 ML IV (08:53)
[2021-02-18] MEDS: HYDRALAZINE 25 MG TABLET 100 MG PO ×2 (08:57→20:54)
--- NOTE | 2021-02-18 12:44 | P.PN_ITS ---
Subjective Subjective Date Patient Seen: 02/18/21 Time Patient Seen: 08:00 Interval history: Today he states he is short of breath. He notices it with very little exertion. He is coughing as well. Exam Vital Signs (past 8 hours): - 02/18/21 05:00 02/18/21 06:10 02/18/21 08:00 Temperature 98.6 F 97.5 F L Pulse Rate 55 L 61 79 Respiratory Rate 17 18 17 Blood Pressure 100/51 L 100/51 L 122/84 Pulse Oximetry 91 96 87 L 02/18/21 09:36 02/18/21 12:00 Temperature 97.5 F L Pulse Rate 64 94 H Respiratory Rate 18 20 Blood Pressure 122/84 134/58 L Pulse Oximetry 95 88 L Fraction of Inspired Oxygen 0.51 Oxygen Delivery Method Heated High Flow Oxygen Flow Rate 50 Narrative Exam Narrative: GENERAL APPEARANCE: no acute distress LUNGS: clear bilaterally, but has poor air movement CARDIOVASCULAR: regular rate and rhythm without any murmurs, gallops, rubs. ABDOMEN: soft, nontender, nondistended EXTREMITIES: No cyanosis, clubbing or edema. NEUROLOGIC: Alert and oriented x 3. Normal affect. no focal deficits Objective Labs Result Diagrams: 02/17/21 05:40 02/17/21 05:40 [facility] Medical History (Updated 02/16/21 @ 10:54 by Javid Thrasher DO) Diabetes HLD (hyperlipidemia) HTN (hypertension) Surgical History (Updated 02/16/21 @ 10:54 by Javid Thrasher DO) H/O knee surgery H/O shoulder surgery Family History (Updated 02/16/21 @ 10:55 by Javid Thrasher DO) Grandfather Diabetes mellitus Brother Hypertension Sister Hypertension Social History household members: spouse Smoking Status: Never smoker alcohol intake: former Assessment & Plan Assessment & Plan narrative: 65-year-old male with a past medical history of obesity, type 2 diabetes, hypertension, and hyperlipidemia who was admitted with acute respiratory failure secondary to COVID-19 pneumonia requiring heated high- flow nasal cannula. 1. Acute respiratory failure with hypoxia secondary to COVID-19 pneumonia ?- continue remdesevir, decadron, and baricitinib. ?- continue supplemental oxygen, proning as much as possible. Can use pain medications to supplement ability to prone. Goal O2 while on supplemental therapy is O2>90% ?- currently on heated high flow, patient does not wish to be intubated if necessary. He is doing very well proning thus far. ?- CTA negative for PE. ?- patient unvaccinated. 2. Type 2 diabetes ?- A1c 12.0%. Per outside records resume prior insulin dosing with 20 units AM, 25 units PM, 8 U lispro TID with meals and sliding scale. With this, AM sugar still around 240 today. Will increase night dosing tonight to 30 units. ?- continue to adjust as needed. 3. Hypertension, chronic ?- continue home medications ? 4. Hyperlipidemia ?- continue home medications. 5. Obesity with BMI 35. ?- dietary consultation. Obesity puts patient at much greater risk of morbidity and mortality from his COVID infection. 6. 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 Keep Mg >2, K>4. consider cardiology. block was seen on EKG performed 02/16. ?- no chest pain or dizziness, no elevation in troponin Code: DNR/ DNI as discussed with patient. Surrogate decision maker is the patient's . Dispo: admitted to ICU for heated high low nasal cannula. Time Spent With Patient Critical Care time: I spent a total of [] minutes of critical care time on this patient's care today; this time is exclusive of procedural time. Quality VTE Deep Vein Thrombosis/Pulmonary Embolism Present on Admission: No
[2021-02-18] MEDS: ATORVASTATIN 20 MG TABLET 40 MG PO (20:49)
[2021-02-18] MEDS: INSULIN GLARGINE 100 UNIT/ML 3ML PEN 30 UNIT SUBCUT (20:51)
[2021-02-18] MEDS: LIDOCAINE PATCH 1 EACH ADH..PATCH TOP (20:53)
--- NOTE | 2021-02-18 21:11 | PM.ICURNDS ---
- :: This patient was seen via real time interactive two-way audiovisual telecommunication. Note: Patient's clinical course remains relatively unchanged. He remains on HFNC at 50L 50%. Vitals and labs stable.
--- NOTE | 2021-02-18 21:50 | PC.NURSE ---
Pt AAO x4, NSVS intact. Compliant with proning and left lateral side-lying this shift. continues on HHFNC 50L 50%, O2 Sats 94-98%. Monitor continues to show Mobitz type 2 heart block, HR 45- 70 depending on activity. Complains of slight pain to mid back, meds ordered but refused at this time. Puri to bag draining clear yellow urine. Call light in reach, instructed to call for assistance as needed.
[2021-02-19] VITALS (47 sets, daily range): BP systolic 108–175; BP diastolic 55–80; PULSE 33–72; RESP 0–53; TEMP 36.3–36.9; O2SAT 82–98
[2021-02-19 04:20] LABS: Hematocrit 30.5 % (41-53); Hemoglobin 10.1 g/dL (13.5-17.5); Mean Corpuscular Hemoglobin 28.2 PG (26-34); Mean Corpuscular Volume 85.4 fL (80-100); Platelet Count 390 X10^3/uL (150-400); Red Blood Cell Count 3.57 X10^6/uL (4.5-5.9); White Blood Cell Count 10.1 X10^3/uL (4.5-11.0)
[2021-02-19 04:27] LABS: Magnesium 2.2 mg/dL (1.6-2.3)
[2021-02-19 04:28] LABS: BUN Creatinine Ratio 33.7 (6-22); Blood Urea Nitrogen 30 mg/dL (9-20); Calcium 8.2 mg/dL (8.4-10.2); Carbon Dioxide 33 mmol/L (22-32); Chloride 105 mmol/L (98-107); Estimated Glomerular Filt Rate > 60.0 mL/min (>60); Glucose 165 mg/dL (80-110); HEMOLYSIS < 15 (0-50); Potassium 4.5 mmol/L (3.4-5.1); Sodium 137 mmol/L (137-145)
[2021-02-19 08:01] LABS: Troponin I < 0.012 ng/mL (0.01-0.034)
[2021-02-19 08:20] LABS: TSH w/ Reflex to FT4 0.92 uIU/mL (0.47-4.68)
[2021-02-19] MEDS: DEXAMETHASONE 10 MG/ML VIAL 6 MG IV (08:23)
[2021-02-19] MEDS: INSULIN GLARGINE 100 UNIT/ML 3ML PEN 20 UNIT SUBCUT (08:24)
[2021-02-19] MEDS: SODIUM CHLORIDE 0.9% FLUSH 10 ML IV ×3 (08:25→20:52)
[2021-02-19] MEDS: ENOXAPARIN 40 MG/0.4 ML SYRINGE SUBCUT (08:25)
[2021-02-19] MEDS: DOCUSATE 100 MG CAPSULE PO ×2 (08:26→20:49)
[2021-02-19] MEDS: FAMOTIDINE 20 MG TABLET PO ×2 (08:26→20:49)
[2021-02-19] MEDS: ASPIRIN EC 81 MG TABLET PO (08:26)
[2021-02-19] MEDS: AMLODIPINE 5 MG TABLET 10 MG PO (08:26)
[2021-02-19] MEDS: BARICITINIB 2 MG TABLET 4 MG PO (08:26)
[2021-02-19] MEDS: lisinopriL 20 MG TABLET 40 MG PO (08:26)
[2021-02-19] MEDS: HYDRALAZINE 25 MG TABLET 100 MG PO ×2 (08:34→20:49)
--- NOTE | 2021-02-19 10:32 | PC.NURSE ---
Pt OOB to chair at 0950. With this activity, pt noted to desat to 76% on HHFNC 50L 50% with increased WOB, RR 40s. Provided pt 100% O2 flush and instructed on deep breathing techniques. Pt provided return demonstration. Once SPO2 89-90% (about 5 minutes) and RR 30 with decreased work of breathing, pt assisted back to bed in prone position. Sats increased to 94% within 2 minutes. Call light in easy reach.
[2021-02-19] MEDS: INSULIN LISPRO 100 UNIT/ML 3ML VIAL SUBCUT ×3 (12:16→20:52)
--- NOTE | 2021-02-19 15:09 | P.PN_ITS ---
Subjective Subjective Date Patient Seen: 02/19/21 Time Patient Seen: 08:00 Interval history: Today he continues to have a cough. He remains short of breath with minimal exertion. His heated high flow setting have not changed he remains at 50L O2 at 50% FiO2. Exam Vital Signs (past 8 hours): - 02/19/21 08:00 02/19/21 09:39 02/19/21 11:47 Temperature 98.2 F Pulse Rate 50 L 57 L 60 Respiratory Rate 15 20 20 Blood Pressure 158/65 H 158/65 H 132/63 Pulse Oximetry 94 92 95 02/19/21 12:00 02/19/21 14:38 Temperature 98.2 F Pulse Rate 70 48 L Respiratory Rate 20 20 Blood Pressure 132/63 132/63 Pulse Oximetry 88 L 93 Fraction of Inspired Oxygen 0.51 Oxygen Delivery Method Heated High Flow Oxygen Flow Rate 50 Narrative Exam Narrative: GENERAL APPEARANCE: no acute distress LUNGS: clear bilaterally, but has poor air movement CARDIOVASCULAR: regular rate and rhythm without any murmurs, gallops, rubs. ABDOMEN: soft, nontender, nondistended EXTREMITIES: No cyanosis, clubbing or edema. NEUROLOGIC: Alert and oriented x 3. Normal affect. no focal deficits Objective Labs Result Diagrams: 02/19/21 04:10 02/19/21 04:10 Labs: Laboratory Results - last 24 hr 02/19/21 02/19/21 02/19/21 04:10 04:10 04:10 WBC 10.1 RBC 3.57 L Hgb 10.1 L Hct 30.5 L MCV 85.4 MCH 28.2 MCHC 33.0 RDW 13.0 Plt Count 390 Sodium 137 Potassium 4.5 Chloride 105 Carbon Dioxide 33 H BUN 30 H Creatinine 0.89 Estimated GFR > 60.0 BUN/Creatinine Ratio 33.7 H Glucose 165 H Calcium 8.2 L Magnesium 2.2 Troponin I TSH 02/19/21 02/19/21 04:10 04:10 WBC RBC Hgb Hct MCV MCH MCHC RDW Plt Count Sodium Potassium Chloride Carbon Dioxide BUN Creatinine Estimated GFR BUN/Creatinine Ratio Glucose Calcium Magnesium Troponin I < 0.012 TSH 0.92 PFSH Medical History (Updated 02/16/21 @ 10:54 by Javid Thrasher DO) Diabetes HLD (hyperlipidemia) HTN (hypertension) Surgical History (Updated 02/16/21 @ 10:54 by Javid Thrasher DO) H/O knee surgery H/O shoulder surgery Family History (Updated 02/16/21 @ 10:55 by Javid Thrasher DO) Grandfather Diabetes mellitus Brother Hypertension Sister Hypertension Social History household members: spouse Smoking Status: Never smoker alcohol intake: former Assessment & Plan Assessment & Plan narrative: 65-year-old male with a past medical history of o besity, type 2 diabetes, hypertension, and hyperlipidemia who was admitted with acute respiratory failure secondary to COVID-19 pneumonia requiring heated high- flow nasal cannula. 1. Acute respiratory failure with hypoxia secondary to COVID-19 pneumonia ?- continue remdesevir, decadron, and baricitinib. ?- continue supplemental oxygen, proning as much as possible. Can use pain medications to supplement ability to prone. Goal O2 while on supplemental therapy is O2>90% ?- currently on heated high flow, patient does not wish to be intubated if necessary. He is doing very well proning thus far. ?- CTA negative for PE. ?- patient unvaccinated. 2. Type 2 diabetes ?- A1c 12.0%. Per outside records resume prior insulin dosing with 20 units AM, 25 units PM, 8 U lispro TID with meals and sliding scale. With this, AM sugar still around 240 today. Will increase night dosing tonight to 30 units. ?- continue to adjust as needed. 3. Hypertension, chronic ?- continue home medications ? 4. Hyperlipidemia ?- continue home medications. 5. Obesity with BMI 35. ?- dietary consultation. Obesity puts patient at much greater risk of morbidity and mortality from his COVID infection. 6. 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 Keep Mg >2, K>4. consider cardiology. block was seen on EKG performed 02/16. - no chest pain or dizziness, no elevation in troponin - will stop remdesivir for now given his bradycardia Code: DNR/ DNI as discussed with patient. Surrogate decision maker is the patient's . Dispo: admitted to ICU for heated high low nasal cannula. Time Spent With Patient Critical Care time: I spent a total of [] minutes of critical care time on this patient's care today; this time is exclusive of procedural time. Quality VTE Deep Vein Thrombosis/Pulmonary Embolism Present on Admission: No
[2021-02-19] MEDS: INSULIN LISPRO 100 UNIT/ML 3ML VIAL 8 UNIT SUBCUT (16:44)
[2021-02-19] MEDS: ATORVASTATIN 20 MG TABLET 40 MG PO (20:49)
[2021-02-19] MEDS: MAGNESIUM HYDROXIDE 30 ML UDC PO (20:50)
[2021-02-19] MEDS: LIDOCAINE PATCH 1 EACH ADH..PATCH TOP (20:50)
[2021-02-19] MEDS: INSULIN GLARGINE 100 UNIT/ML 3ML PEN 30 UNIT SUBCUT (20:55)
--- NOTE | 2021-02-19 21:10 | PM.ICURNDS ---
- :: This patient was seen via real time interactive two-way audiovisual telecommunication. Note: No Change. Patient continues to require HFNC 50L 50%. He is doing well with awake self proning.
[2021-02-20] VITALS (24 sets, daily range): BP systolic 101–168; BP diastolic 55–79; PULSE 33–68; RESP 13–34; TEMP 36.3–36.9; O2SAT 90–95
--- NOTE | 2021-02-20 01:06 | PC.NURSE ---
0000- Midnight telemetry reading 3rd degree AV block. Patient asymptomatic. Vitals WNL. aware. Will monitor closely.
--- NOTE | 2021-02-20 07:06 | RT ---
Patient received on High Flow NC at 50L's and 40%. SPO2 running 90-94% on this setting except when patient exerts with turning or moving in bed. BS diminished throughout. RR ,low to mid 20's to mid 30's depending on movement.
[2021-02-20] MEDS: ASPIRIN EC 81 MG TABLET PO (08:29)
[2021-02-20] MEDS: BARICITINIB 2 MG TABLET 4 MG PO (08:29)
[2021-02-20] MEDS: ENOXAPARIN 40 MG/0.4 ML SYRINGE SUBCUT (08:29)
[2021-02-20] MEDS: DEXAMETHASONE 10 MG/ML VIAL 6 MG IV (08:30)
[2021-02-20] MEDS: FAMOTIDINE 20 MG TABLET PO ×2 (08:30→20:42)
[2021-02-20] MEDS: INSULIN GLARGINE 100 UNIT/ML 3ML PEN 20 UNIT SUBCUT (08:30)
[2021-02-20] MEDS: DOCUSATE 100 MG CAPSULE PO ×2 (08:30→20:42)
[2021-02-20] MEDS: INSULIN LISPRO 100 UNIT/ML 3ML VIAL 8 UNIT SUBCUT ×3 (08:33→16:44)
[2021-02-20] MEDS: HYDRALAZINE 25 MG TABLET 100 MG PO ×2 (08:34→20:43)
[2021-02-20] MEDS: AMLODIPINE 5 MG TABLET 10 MG PO (08:34)
[2021-02-20] MEDS: lisinopriL 20 MG TABLET 40 MG PO (08:34)
[2021-02-20] MEDS: SODIUM CHLORIDE 0.9% FLUSH 10 ML IV (08:35)
[2021-02-20] MEDS: INSULIN LISPRO 100 UNIT/ML 3ML VIAL SUBCUT ×2 (12:27→16:44)
--- NOTE | 2021-02-20 13:09 | PM.PN.1 ---
Subjective Subjective Date Patient Seen: 02/20/21 Time Patient Seen: 08:00 Interval history: Today he says he is actually feeling better. He symptomatically feels less short of breath. O2 was decreased to 40% FiO2, remains at 50L. He continues to have profound hypoxemia even just getting up to the chair which takes a good amount of time to recover. Exam Vital Signs (past 8 hours): - 02/20/21 06:00 02/20/21 06:28 02/20/21 07:30 Temperature Pulse Rate 46 L 48 L 40 L Respiratory Rate 23 30 H 32 H Blood Pressure 168/78 H 168/79 H Pulse Oximetry 93 94 93 02/20/21 08:00 02/20/21 09:36 02/20/21 12:00 Temperature 98 F 97.6 F Pulse Rate 61 57 L 57 L Respiratory Rate 20 24 20 Blood Pressure 157/72 H 112/58 L Pulse Oximetry 93 92 92 Fraction of Inspired Oxygen 40 Oxygen Delivery Method Heated High Flow Oxygen Flow Rate 50 Narrative Exam Narrative: GENERAL APPEARANCE: no acute distress LUNGS: clear bilaterally, but has poor air movement CARDIOVASCULAR: regular rate and rhythm without any murmurs, gallops, rubs. ABDOMEN: soft, nontender, nondistended EXTREMITIES: No cyanosis, clubbing or edema. NEUROLOGIC: Alert and oriented x 3. Normal affect. no focal deficits Objective Labs Result Diagrams: 02/19/21 04:10 02/19/21 04:10 [facility] Medical History (Updated 02/16/21 @ 10:54 by Javid Thrasher DO) Diabetes HLD (hyperlipidemia) HTN (hypertension) Surgical History (Updated 02/16/21 @ 10:54 by Javid Thrasher DO) H/O knee surgery H/O shoulder surgery Family History (Updated 02/16/21 @ 10:55 by Javid Thrasher DO) Grandfather Diabetes mellitus Brother Hypertension Sister Hypertension Social History household members: spouse Smoking Status: Never smoker alcohol intake: former Assessment & Plan Assessment & Plan narrative: 65-year-old male with a past medical history of obesity, type 2 diabetes, hypertension, and hyperlipidemia who was admitted with acute respiratory failure secondary to COVID-19 pneumonia requiring heated high-flow nasal cannula. 1. Acute respiratory failure with hypoxia secondary to COVID-19 pneumonia ?- continue remdesevir, decadron, and baricitinib. ?- continue supplemental oxygen, proning as much as possible. Can use pain medications to supplement ability to prone. Goal O2 while on supplemental therapy is O2>90% ?- currently on heated high flow, patient does not wish to be intubated if necessary. He is doing very well proning thus far. ?- CTA negative for PE. ?- patient unvaccinated. - PM 02/19 began to be able to decrease O2 requirement slightly, but remains on high flow at 40L and 50% 2. Type 2 diabetes ?- A1c 12.0%. Per outside records resume prior insulin dosing with 20 units AM, 25 units PM, 8 U lispro TID with meals and sliding scale. With this, AM sugar still around 240 today. Will increase night dosing tonight to 30 units. ?- continue to adjust as needed. 3. Hypertension, chronic ?- continue home medications ? 4. Hyperlipidemia ?- continue home medications. 5. Obesity with BMI 35. ?- dietary consultation. Obesity puts patient at much greater risk of morbidity and mortality from his COVID infection. 6. 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 Keep Mg >2, K>4. - no chest pain or dizziness, no elevation in troponin - will stop remdesivir for now given his bradycardia - was already planned to have pacemaker placed as outpatient Code: DNR/ DNI as discussed with patient. Surrogate decision maker is the patient's . Dispo: admitted to ICU for heated high low nasal cannula. Time Spent With Patient Critical Care time: I spent a total of [] minutes of critical care time on this patient's care today; this time is exclusive of procedural time. Quality VTE Deep Vein Thrombosis/Pulmonary Embolism Present on Admission: No
--- NOTE | 2021-02-20 13:14 | CM.DPC ---
DCP Cont: Discussed patient briefly during team rounds. He is continuing on high flow oxygen, showing some signs of improvement. Patient has been compliant with care. P: DCP to continue to follow. Patient should be able to go home when he is deemed medically stable, and no longer in need of high flow oxygen. Cristine Best RN/Geographic Area Intelligence Officer
[2021-02-20] MEDS: MAGNESIUM HYDROXIDE 30 ML UDC PO (20:42)
[2021-02-20] MEDS: ATORVASTATIN 20 MG TABLET 40 MG PO (20:42)
[2021-02-20] MEDS: INSULIN GLARGINE 100 UNIT/ML 3ML PEN 30 UNIT SUBCUT (20:44)
[2021-02-20] MEDS: LIDOCAINE PATCH 1 EACH ADH..PATCH TOP (20:45)
[2021-02-20 21:37] LABS: Hematocrit 32.5 % (41-53); Hemoglobin 10.8 g/dL (13.5-17.5); Mean Corpuscular HGB Conc 33.2 % (30-36); Mean Corpuscular Hemoglobin 28.5 PG (26-34); Mean Corpuscular Volume 85.8 fL (80-100); Platelet Count 400 X10^3/uL (150-400); Red Blood Cell Count 3.79 X10^6/uL (4.5-5.9); Red Cell Distribution Width 13.1 % (11.6-14.8); White Blood Cell Count 11.1 X10^3/uL (4.5-11.0)
[2021-02-20 21:43] LABS: BUN Creatinine Ratio 40.5 (6-22); Blood Urea Nitrogen 45 mg/dL (9-20); Calcium 8.5 mg/dL (8.4-10.2); Carbon Dioxide 31 mmol/L (22-32); Chloride 102 mmol/L (98-107); Estimated Glomerular Filt Rate > 60.0 mL/min (>60); Glucose 124 mg/dL (80-110); HEMOLYSIS < 15 (0-50); Potassium 4.9 mmol/L (3.4-5.1); Sodium 135 mmol/L (137-145)
--- NOTE | 2021-02-20 22:50 | PM.ICURNDS ---
- Date Patient Seen: 02/20/21 Time Patient Seen: 22:29 :: This patient was seen via real time interactive two-way audiovisual telecommunication. Note: Labs/orders reviewed. Patient currently on HFNC 40 L/min 40% FiO2. He is hyperglycemic. His insulin therpay will be adjusted and the remainder of the current management will continue. Case discussed with THOMAS Santos RN and RT.
[2021-02-21] VITALS (17 sets, daily range): BP systolic 102–141; BP diastolic 53–61; PULSE 31–91; RESP 16–29; TEMP 36.2–36.8; O2SAT 83–97
--- NOTE | 2021-02-21 03:49 | PC.NURSE ---
Shift Note-Patient started with HHF at 40L/40% FIO2, but increased to 50L/50% at 0300 d/t increased shortness of breath and desatting to 60% during activity. Patient had been needing to use urinal at least hourly, voiding only 50ml at a time, states he does have hx of prostate problems and usually voids frequently throughout the night. 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 He has been proning and side-lying. When he is on Rt side, SpO2 >92% but HR is in 30s, when he is on Lt side, SpO2 87-92%, HR >40.
[2021-02-21] MEDS: SODIUM CHLORIDE 0.9% FLUSH 10 ML IV ×2 (05:01→09:34)
[2021-02-21 05:32] LABS: Hematocrit 32.6 % (41-53); Hemoglobin 10.8 g/dL (13.5-17.5); Mean Corpuscular Hemoglobin 28.2 PG (26-34); Mean Corpuscular Volume 85.4 fL (80-100); Platelet Count 382 X10^3/uL (150-400); Red Blood Cell Count 3.81 X10^6/uL (4.5-5.9); Red Cell Distribution Width 13.2 % (11.6-14.8); White Blood Cell Count 14.3 X10^3/uL (4.5-11.0)
[2021-02-21 05:37] LABS: BUN Creatinine Ratio 40.6 (6-22); Blood Urea Nitrogen 39 mg/dL (9-20); Calcium 8.5 mg/dL (8.4-10.2); Carbon Dioxide 32 mmol/L (22-32); Chloride 106 mmol/L (98-107); Estimated Glomerular Filt Rate > 60.0 mL/min (>60); Glucose 98 mg/dL (80-110); HEMOLYSIS < 15 (0-50); Potassium 4.6 mmol/L (3.4-5.1); Sodium 138 mmol/L (137-145)
--- NOTE | 2021-02-21 07:05 | RT ---
Patient desaturating during shift every time he got up to urinate of use the commode. SPO2 as low as 59 with very prolonged recovery even with frequent bursts of 100% and proning by patient. FIo2 increased to 50% and flow returned back to 50L's and patient gradualy improved to SPO2 in low to mid 90's with less desaturation.
[2021-02-21] MEDS: INSULIN LISPRO 100 UNIT/ML 3ML VIAL 10 UNIT SUBCUT ×2 (09:32→12:50)
[2021-02-21] MEDS: HYDRALAZINE 25 MG TABLET 100 MG PO (09:33)
[2021-02-21] MEDS: INSULIN GLARGINE 100 UNIT/ML 3ML PEN 30 UNIT SUBCUT ×2 (09:34→20:32)
[2021-02-21] MEDS: FAMOTIDINE 20 MG TABLET PO ×2 (09:35→20:30)
[2021-02-21] MEDS: lisinopriL 20 MG TABLET 40 MG PO (09:35)
[2021-02-21] MEDS: BARICITINIB 2 MG TABLET 4 MG PO (09:35)
[2021-02-21] MEDS: ENOXAPARIN 40 MG/0.4 ML SYRINGE SUBCUT (09:35)
[2021-02-21] MEDS: AMLODIPINE 5 MG TABLET 10 MG PO (09:35)
[2021-02-21] MEDS: ASPIRIN EC 81 MG TABLET PO (09:35)
[2021-02-21] MEDS: DEXAMETHASONE 10 MG/ML VIAL 6 MG IV (09:35)
[2021-02-21] MEDS: INSULIN LISPRO 100 UNIT/ML 3ML VIAL SUBCUT ×3 (12:50→20:32)
--- NOTE | 2021-02-21 17:15 | P.PN_ITS ---
Subjective Subjective Date Patient Seen: 02/21/21 Time Patient Seen: 08:00 Interval history: Last night he had quite significant shortness of breath. Puri removal was attempted, however he became quite short of breath with little activity. Puri was placed back. This morning he feels short of breath, not significant changed from yesterday. Exam Vital Signs (past 8 hours): - 02/21/21 09:18 02/21/21 10:09 02/21/21 11:10 Temperature Pulse Rate 66 49 L 37 L Respiratory Rate 28 H 20 24 Blood Pressure 125/58 L 125/58 L Pulse Oximetry 92 97 97 02/21/21 12:00 02/21/21 13:40 02/21/21 16:10 Temperature 97.8 F 97.6 F Pulse Rate 48 L 46 L 51 L Respiratory Rate 19 16 21 Blood Pressure 104/55 L 104/55 L 114/57 L Pulse Oximetry 94 95 95 Fraction of Inspired Oxygen 40 Oxygen Delivery Method Heated High Flow Oxygen Flow Rate 30 Narrative Exam Narrative: GENERAL APPEARANCE: no acute distress LUNGS: clear bilaterally, but has poor air movement CARDIOVASCULAR: regular rate and rhythm without any murmurs, gallops, rubs. ABDOMEN: soft, nontender, nondistended EXTREMITIES: No cyanosis, clubbing or edema. NEUROLOGIC: Alert and oriented x 3. Normal affect. no focal deficits Objective Labs Result Diagrams: 02/21/21 05:15 02/21/21 05:15 Labs: Laboratory Results - last 24 hr 02/20/21 02/20/21 02/21/21 21:15 21:15 05:15 WBC 11.1 H 14.3 H RBC 3.79 L 3.81 L Hgb 10.8 L 10.8 L Hct 32.5 L 32.6 L MCV 85.8 85.4 MCH 28.5 28.2 MCHC 33.2 33.0 RDW 13.1 13.2 Plt Count 400 382 Sodium 135 L Potassium 4.9 Chloride 102 Carbon Dioxide 31 BUN 45 H Creatinine 1.11 Estimated GFR > 60.0 BUN/Creatinine Ratio 40.5 H Glucose 124 H Calcium 8.5 02/21/21 05:15 WBC RBC Hgb Hct MCV MCH MCHC RDW Plt Count Sodium 138 Potassium 4.6 Chloride 106 Carbon Dioxide 32 BUN 39 H Creatinine 0.96 Estimated GFR > 60.0 BUN/Creatinine Ratio 40.6 H Glucose 98 Calcium 8.5 PFSH Medical History (Updated 02/16/21 @ 10:54 by Javid Thrasher DO) Diabetes HLD (hyperlipidemia) HTN (hypertension) Surgical History (Updated 02/16/21 @ 10:54 by Javid Thrasher DO) H/O knee surgery H/O shoulder surgery Family History (Updated 02/16/21 @ 10:55 by Javid Thrasher DO) Grandfather Diabetes mellitus Brother Hypertension Sister Hypertension Social History household members: spouse Smoking Status: Never smoker alcohol intake: former Assessment & Plan Assessment & Plan narrative: 65-year-old male with a past medical history of obesity, type 2 diabetes, hypertension, and hyperlipidemia who was admitted with acute respiratory failure secondary to COVID-19 pneumonia requiring heated high- flow nasal cannula. 1. Acute respiratory failure with hypoxia secondary to COVID-19 pneumonia ?- continue remdesevir, decadron, and baricitinib. ?- continue supplemental oxygen, proning as much as possible. Can use pain medications to supplement ability to prone. Goal O2 while on supplemental therapy is O2>90% ?- currently on heated high flow, patient does not wish to be intubated if necessary. He is doing very well proning thus far. ?- CTA negative for PE. ?- patient unvaccinated. - PM 02/19 began to be able to decrease O2 requirement slightly, but increased after shortness of breath last night to 50L and 50%, trying to wean back down 2. Type 2 diabetes ?- A1c 12.0%. continue to adjust as needed insulin 3. Hypertension, chronic ?- continue home medications ? 4. Hyperlipidemia ?- continue home medications. 5. Obesity with BMI 35. ?- dietary consultation. Obesity puts patient at much greater risk of morbidity and mortality from his COVID infection. 6. 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 Keep Mg >2, K>4. - no chest pain or dizziness, no elevation in troponin - will stop remdesivir for now given his bradycardia - was already planned to have pacemaker placed as outpatient Code: DNR/ DNI as discussed with patient. Surrogate decision maker is the patient's . Dispo: admitted to ICU for heated high low nasal cannula. Time Spent With Patient Critical Care time: I spent a total of [] minutes of critical care time on this patient's care today; this time is exclusive of procedural time. Quality VTE Deep Vein Thrombosis/Pulmonary Embolism Present on Admission: No
[2021-02-21] MEDS: MAGNESIUM HYDROXIDE 30 ML UDC PO (20:30)
[2021-02-21] MEDS: LIDOCAINE PATCH 1 EACH ADH..PATCH TOP (20:30)
[2021-02-21] MEDS: ATORVASTATIN 20 MG TABLET 40 MG PO (20:30)
[2021-02-21] MEDS: DOCUSATE 100 MG CAPSULE PO (20:30)
--- NOTE | 2021-02-21 21:25 | PM.ICURNDS ---
- Date Patient Seen: 02/21/21 Time Patient Seen: 21:25 :: This patient was seen via real time interactive two-way audiovisual telecommunication. Note: Patient is down to 7L/min. Glycemic control is adequate. Plans discussed with THOMAS Santos RN and RT.
--- NOTE | 2021-02-21 23:16 | PC.NURSE ---
Patient states he's feeling well today. Off HHF, on 7L HFNC. Able to take shower and eat dinner in chair. Patient's HR remains low, lowest seen at 27bpm. BARREL ASSEMBLY INSPECTOR, Tom aware of low HR. BP low but MAP remains >65. Held scheduled bedtime hydralazine.
[2021-02-22] VITALS (18 sets, daily range): BP systolic 100–184; BP diastolic 52–79; PULSE 32–47; RESP 19–33; TEMP 36.4–37; O2SAT 87–96
[2021-02-22] MEDS: SODIUM CHLORIDE 0.9% FLUSH 10 ML IV ×3 (04:48→21:00)
[2021-02-22 06:48] LABS: Magnesium 2.5 mg/dL (1.6-2.3)
[2021-02-22] MEDS: ENOXAPARIN 40 MG/0.4 ML SYRINGE SUBCUT (08:30)
[2021-02-22] MEDS: FAMOTIDINE 20 MG TABLET PO ×2 (08:30→21:25)
[2021-02-22] MEDS: DEXAMETHASONE 10 MG/ML VIAL 6 MG IV (08:31)
[2021-02-22] MEDS: AMLODIPINE 5 MG TABLET 10 MG PO (08:31)
[2021-02-22] MEDS: ASPIRIN EC 81 MG TABLET PO (08:31)
[2021-02-22] MEDS: lisinopriL 20 MG TABLET 40 MG PO (08:31)
[2021-02-22] MEDS: BARICITINIB 2 MG TABLET 4 MG PO (08:31)
[2021-02-22] MEDS: DOCUSATE 100 MG CAPSULE PO ×2 (08:31→21:25)
[2021-02-22] MEDS: HYDRALAZINE 25 MG TABLET 100 MG PO ×2 (08:34→21:24)
[2021-02-22] MEDS: INSULIN LISPRO 100 UNIT/ML 3ML VIAL SUBCUT ×6 (08:35→21:32)
[2021-02-22] MEDS: INSULIN GLARGINE 100 UNIT/ML 3ML PEN 30 UNIT SUBCUT (08:36)
--- NOTE | 2021-02-22 12:47 | PM.PN.1 ---
Subjective Subjective Date Patient Seen: 02/22/21 Time Patient Seen: 08:00 Interval history: Today he feels improved from yesterday. He has more energy and less shortness of breath with activity. He has been weaned off high flow oxygen and is on 7L nasal cannula. Exam Vital Signs (past 8 hours): - 02/22/21 05:00 02/22/21 07:45 02/22/21 07:50 Temperature Pulse Rate 35 L 45 L Respiratory Rate 24 20 Blood Pressure 131/64 Pulse Oximetry 93 96 95 02/22/21 08:00 02/22/21 12:00 Temperature 98 F 97.6 F Pulse Rate 45 L 46 L Respiratory Rate 28 H 19 Blood Pressure 184/79 H 100/52 L Pulse Oximetry 95 92 Fraction of Inspired Oxygen 40 Oxygen Delivery Method High Flow Nasal Cannula Oxygen Flow Rate 6 Narrative Exam Narrative: GENERAL APPEARANCE: no acute distress LUNGS: clear bilaterally, but has poor air movement CARDIOVASCULAR: regular rate and rhythm without any murmurs, gallops, rubs. ABDOMEN: soft, nontender, nondistended EXTREMITIES: No cyanosis, clubbing or edema. NEUROLOGIC: Alert and oriented x 3. Normal affect. no focal deficits Objective Labs Result Diagrams: 02/21/21 05:15 02/21/21 05:15 Labs: Laboratory Results - last 24 hr 02/22/21 05:00 Magnesium 2.5 H [facility] Medical History (Updated 02/16/21 @ 10:54 by Javid Thrasher DO) Diabetes HLD (hyperlipidemia) HTN (hypertension) Surgical History (Updated 02/16/21 @ 10:54 by Javid Thrasher DO) H/O knee surgery H/O shoulder surgery Family History (Updated 02/16/21 @ 10:55 by Javid Thrasher DO) Grandfather Diabetes mellitus Brother Hypertension Sister Hypertension Social History household members: spouse Smoking Status: Never smoker alcohol intake: former Assessment & Plan Assessment & Plan narrative: 65-year-old male with a past medical history of obesity, type 2 diabetes, hypertension, and hyperlipidemia who was admitted with acute respiratory failure secondary to COVID-19 pneumonia requiring heated high-flow nasal cannula. 1. Acute respiratory failure with hypoxia secondary to COVID-19 pneumonia - continue remdesevir, decadron, and baricitinib. - continue supplemental oxygen, proning as much as possible. Can use pain medications to supplement ability to prone. Goal O2 while on supplemental therapy is O2>90% - weaned off heated high flow on 02/21, currently on 7L nasal cannula - CTA negative for PE. - patient unvaccinated. 2. Type 2 diabetes - A1c 12.0%. continue to adjust as needed insulin 3. Hypertension, chronic - continue home medications 4. Hyperlipidemia - continue home medications. 5. Obesity with BMI 35. - dietary consultation. Obesity puts patient at much greater risk of morbidity and mortality from his COVID infection. 6. 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 Keep Mg >2, K>4. - no chest pain or dizziness, no elevation in troponin - will stop remdesivir for now given his bradycardia - was already planned to have pacemaker placed as outpatient Code: DNR/ DNI as discussed with patient. Surrogate decision maker is the patient's . Dispo: admitted to ICU for heated high low nasal cannula. Time Spent With Patient Critical Care time: I spent a total of [] minutes of critical care time on this patient's care today; this time is exclusive of procedural time. Quality VTE Deep Vein Thrombosis/Pulmonary Embolism Present on Admission: No
--- NOTE | 2021-02-22 20:47 | PM.ICURNDS ---
- Date Patient Seen: 02/22/21 Time Patient Seen: 20:47 :: This patient was seen via real time interactive two-way audiovisual telecommunication. Note: O2 requirement down to 6 L. Using cell phone on camera and appears comfortable. Labs/orders reviewed. Patient is continuing to make slow progress; continue present mgmt. Discussed with RT and RN.
[2021-02-22] MEDS: ATORVASTATIN 20 MG TABLET 40 MG PO (21:21)
[2021-02-22] MEDS: MAGNESIUM HYDROXIDE 30 ML UDC PO (21:25)
[2021-02-22] MEDS: INSULIN GLARGINE 100 UNIT/ML 3ML PEN 40 UNIT SUBCUT (21:32)
[2021-02-23] VITALS (36 sets, daily range): BP systolic 105–145; BP diastolic 54–67; PULSE 26–56; RESP 16–33; TEMP 35.9–37.2; O2SAT 88–99
[2021-02-23 04:42] LABS: Hemoglobin 10.2 g/dL (13.5-17.5); Mean Corpuscular HGB Conc 33.1 % (30-36); Mean Corpuscular Hemoglobin 28.4 PG (26-34); Mean Corpuscular Volume 85.9 fL (80-100); Platelet Count 349 X10^3/uL (150-400); Red Cell Distribution Width 13.2 % (11.6-14.8); White Blood Cell Count 11.3 X10^3/uL (4.5-11.0)
[2021-02-23 04:48] LABS: BUN Creatinine Ratio 43.9 (6-22); Blood Urea Nitrogen 47 mg/dL (9-20); Calcium 8.1 mg/dL (8.4-10.2); Carbon Dioxide 28 mmol/L (22-32); Chloride 108 mmol/L (98-107); Estimated Glomerular Filt Rate > 60.0 mL/min (>60); Glucose 153 mg/dL (80-110); HEMOLYSIS < 15 (0-50); Potassium 4.6 mmol/L (3.4-5.1); Sodium 138 mmol/L (137-145)
--- NOTE | 2021-02-23 05:29 | PC.NURSE ---
Pt is A and O x 4, afebrile. [place] and in third degree block most of shift. On 6 L HF low 90 93%. Per Tru RN, crackles in bases. BP 130s / 60s. UO qs. Pt complained of weakness but denies pain. Pt is able to eat and drink and had a BM on 02/21/2021.
[2021-02-23] MEDS: MAGNESIUM HYDROXIDE 30 ML UDC PO ×2 (08:38→21:03)
[2021-02-23] MEDS: INSULIN GLARGINE 100 UNIT/ML 3ML PEN 40 UNIT SUBCUT ×2 (08:38→21:04)
[2021-02-23] MEDS: DEXAMETHASONE 10 MG/ML VIAL 6 MG IV (08:39)
[2021-02-23] MEDS: ASPIRIN EC 81 MG TABLET PO (08:42)
[2021-02-23] MEDS: AMLODIPINE 5 MG TABLET 10 MG PO (08:42)
[2021-02-23] MEDS: ENOXAPARIN 40 MG/0.4 ML SYRINGE SUBCUT (08:43)
[2021-02-23] MEDS: DOCUSATE 100 MG CAPSULE PO ×2 (08:43→21:02)
[2021-02-23] MEDS: BARICITINIB 2 MG TABLET 4 MG PO (08:43)
[2021-02-23] MEDS: INSULIN LISPRO 100 UNIT/ML 3ML VIAL 8 UNIT SUBCUT ×2 (08:47→18:36)
[2021-02-23] MEDS: INSULIN LISPRO 100 UNIT/ML 3ML VIAL SUBCUT ×3 (08:48→21:03)
[2021-02-23] MEDS: SODIUM CHLORIDE 0.9% FLUSH 10 ML IV ×3 (08:50→21:04)
[2021-02-23] MEDS: lisinopriL 20 MG TABLET 40 MG PO (08:51)
[2021-02-23] MEDS: FAMOTIDINE 20 MG TABLET PO ×2 (08:54→21:02)
[2021-02-23] MEDS: HYDRALAZINE 25 MG TABLET 100 MG PO ×2 (08:57→21:02)
--- NOTE | 2021-02-23 14:30 | P.PN_ITS ---
Subjective Subjective Date Patient Seen: 02/23/21 Interval history: Patient is a 65-year-old male who was here on day 7 for acute respiratory failure secondary to COVID pneumonia. The patient was able to be tapered off of high-flow oxygen and is now on 10 L nasal cannula. He is saturating at 89 90%. He has no specific complaints. The patient does have an indwelling Puri catheter. He is interested in discontinuing if at all possible. Exam Vital Signs (past 8 hours): - 02/23/21 08:00 02/23/21 08:24 02/23/21 10:45 Temperature 98.1 F Pulse Rate 39 L 40 L Respiratory Rate 23 Blood Pressure 131/61 Pulse Oximetry 90 L 91 Fraction of Inspired Oxygen 40 Oxygen Delivery Method High Flow Nasal Cannula Oxygen Flow Rate 4.5 Narrative Exam Narrative: Pleasant gentleman lying in bed in no obvious distress HENMT Other: Normocephalic atraumatic, extraocular muscles are intact, oropharynx is clear Resp Other: Lungs: Decreased breath sounds but clear to auscultation Cardio Other: Cardiac exam: Regular rate and rhythm normal S1-S2 GI Other: Abdomen: Soft nontender nondistended Extrem Other: Extremities: No edema Objective Labs Result Diagrams: 02/23/21 04:20 02/23/21 04:20 Labs: Laboratory Results - last 24 hr 02/23/21 02/23/21 04:20 04:20 WBC 11.3 H RBC 3.60 L Hgb 10.2 L Hct 31.0 L MCV 85.9 MCH 28.4 MCHC 33.1 RDW 13.2 Plt Count 349 Sodium 138 Potassium 4.6 Chloride 108 H Carbon Dioxide 28 BUN 47 H Creatinine 1.07 Estimated GFR > 60.0 BUN/Creatinine Ratio 43.9 H Glucose 153 H Calcium 8.1 L PFSH Medical History (Updated 02/16/21 @ 10:54 by Javid Thrasher DO) Diabetes HLD (hyperlipidemia) HTN (hypertension) Surgical History (Updated 02/16/21 @ 10:54 by Javid Thrasher DO) H/O knee surgery H/O shoulder surgery Family History (Updated 02/16/21 @ 10:55 by Javid Thrasher DO) Grandfather Diabetes mellitus Brother Hypertension Sister Hypertension Social History household members: spouse Smoking Status: Never smoker alcohol intake: former Assessment & Plan Assessment & Plan narrative: Acute respiratory failure with hypoxia secondary to COVID-19 pneumonia ?- continue remdesevir, decadron, and baricitinib. ?- continue supplemental oxygen, proning as much as possible. Can use pain medications to supplement ability to prone. Goal O2 while on supplemental ther apy is O2>90% ?- weaned off heated high flow on 02/21, currently on 7L nasal cannula ?- CTA negative for PE. ?- patient unvaccinated. -will continue to taper oxygen, currently now on 10 L of oxygen and tolerating it well. Patient will be transferred from the intensive care unit to the medical floor 2. Type 2 diabetes ?- A1c 12.0%. continue to adjust as needed insulin 3. Hypertension, chronic ?- continue home medications ? 4. Hyperlipidemia ?- continue home medications. 5. Obesity with BMI 35. ?- dietary consultation. Obesity puts patient at much greater risk of morbidity and mortality from his COVID infection. 6. 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 Keep Mg >2, K>4. - no chest pain or dizziness, no elevation in troponin - will stop remdesivir for now given his bradycardia - was already planned to have pacemaker placed as outpatient -will continue telemetry while in the hospital Code: DNR/ DNI as discussed with patient. Surrogate decision maker is the sarah ent's . Time Spent With Patient Critical Care time: I spent a total of [] minutes of critical care time on this patient's care today; this time is exclusive of procedural time. Quality VTE Deep Vein Thrombosis/Pulmonary Embolism Present on Admission: No
--- NOTE | 2021-02-23 15:28 | PC.NURSE ---
PT DOING WELL- ABLE TO WEAN DOWN TO 4.5 L OF NC OXYGEN WITH SPO2 89-92% - LUNGS REMAIN COARSE BUT CLEARING AND GOOD AIR MOVEMENT AUSCULTATED- ORDER FOR [place] REMOVAL AND AWAITING PO DOSE OF FLOMAX ORDERED -
[2021-02-23] MEDS: ATORVASTATIN 20 MG TABLET 40 MG PO (21:02)
[2021-02-24] VITALS (16 sets, daily range): BP systolic 121–168; BP diastolic 57–74; PULSE 29–78; RESP 17–34; TEMP 36.1–36.7; O2SAT 85–97
--- NOTE | 2021-02-24 01:29 | PC.NURSE ---
Patient's , Jorge, was updated via phone. Incoming phone number (after HIPPA clearance from patient)/
[2021-02-24] MEDS: INSULIN LISPRO 100 UNIT/ML 3ML VIAL SUBCUT ×4 (08:35→21:27)
[2021-02-24] MEDS: INSULIN LISPRO 100 UNIT/ML 3ML VIAL 8 UNIT SUBCUT ×3 (08:36→18:17)
[2021-02-24] MEDS: INSULIN GLARGINE 100 UNIT/ML 3ML PEN 40 UNIT SUBCUT ×2 (08:36→21:26)
[2021-02-24] MEDS: SODIUM CHLORIDE 0.9% FLUSH 10 ML IV ×2 (08:37→21:26)
[2021-02-24] MEDS: lisinopriL 20 MG TABLET 40 MG PO (08:37)
[2021-02-24] MEDS: DEXAMETHASONE 10 MG/ML VIAL 6 MG IV (08:37)
[2021-02-24] MEDS: AMLODIPINE 5 MG TABLET 10 MG PO (08:37)
[2021-02-24] MEDS: FAMOTIDINE 20 MG TABLET PO ×2 (08:37→21:21)
[2021-02-24] MEDS: ENOXAPARIN 40 MG/0.4 ML SYRINGE SUBCUT (08:37)
[2021-02-24] MEDS: ASPIRIN EC 81 MG TABLET PO (08:39)
[2021-02-24] MEDS: DOCUSATE 100 MG CAPSULE PO ×2 (08:39→21:21)
[2021-02-24] MEDS: HYDRALAZINE 25 MG TABLET 100 MG PO ×2 (08:40→21:24)
[2021-02-24] MEDS: BARICITINIB 2 MG TABLET 4 MG PO (08:52)
--- NOTE | 2021-02-24 11:33 | CM.DPC ---
DCP Cont: Per MD, pt continues to make improvements with reducing his oxygen needs. Pt no longer on HHFNC and currently on 5L02 and satting about 94%. Discussion during rounds with MD and RT to have RT attempt to mobilize pt in the room to determine if he will remain stable with his oxygen levels with exertion. If pt remains stable with mobility and oxygen, once pt down to 4LO2 or less then consideration can be made for possible d/c home with home oxygen. Plan: SW to continue to follow closely after pt ambulates to determine if he is getting closer to being stable for d/c home and any further identified discharge needs. ARABELLA See
[2021-02-24] MEDS: TAMSULOSIN 0.4 MG CAPSULE PO (14:36)
--- NOTE | 2021-02-24 18:32 | P.PN_ITS ---
Subjective Subjective Date Patient Seen: 02/24/21 Time Patient Seen: 18:32 Interval history: 65-year-old male admitted to the hospital with acute respiratory failure secondary to COVID pneumonia. Patient is making steady improvement. He is now down to 5 L of oxygen. He does desaturate with minimal activity but overall is making significant improvement Exam Vital Signs (past 8 hours): - 02/24/21 12:00 02/24/21 15:00 02/24/21 16:30 Temperature 97.8 F 98.1 F Pulse Rate 78 50 L Respiratory Rate 18 17 Blood Pressure 121/57 L 152/66 H Pulse Oximetry 91 97 93 Fraction of Inspired Oxygen 40 Oxygen Delivery Method High Flow Nasal Cannula Oxygen Flow Rate 5 Narrative Exam Narrative: Pleasant gentleman lying in bed in no acute distress Resp Other: Lungs decreased breath sounds with occasional crackles bilaterally Cardio Other: Cardiac exam: Regular rate and rhythm normal S1-S2 GI Other: Abdomen: Soft and nontender Extrem Other: Extremities: No edema Objective Labs Result Diagrams: 02/23/21 04:20 02/23/21 04:20 [facility] Medical History (Updated 02/24/21 @ 13:56 by Caroline Winter MD) Diabetes HLD (hyperlipidemia) HTN (hypertension) Surgical History (Updated 02/16/21 @ 10:54 by Javid Thrasher DO) H/O knee surgery H/O shoulder surgery Family History (Updated 02/16/21 @ 10:55 by Javid Thrasher DO) Grandfather Diabetes mellitus Brother Hypertension Sister Hypertension Social History household members: spouse Smoking Status: Never smoker alcohol intake: former Assessment & Plan Assessment & Plan narrative: Acute respiratory failure with hypoxia secondary to COVID-19 pneumonia ?- continue remdesevir, decadron, and baricitinib. ?- continue supplemental oxygen, proning as much as possible. Can use pain medications to supplement ability to prone. Goal O2 while on supplemental therapy is O2>90% ?- weaned off heated high flow on 02/21, currently on 7L nasal cannula, now on 5 L of oxygen ?- CTA negative for PE. ?- patient unvaccinated. -will continue to taper oxygen, currently now on 10 L of oxygen and tolerating it well.? Patient will be transferred from the intensive care unit to the medical floor -today down to 5 L of oxygen -if the patient can oxygen date at rest and activity on 4 L a less he can be discharged home -and has dissipated discharge home in 1-2 days 2. Type 2 diabetes ?- A1c 12.0%. continue to adjust as needed insulin 3. Hypertension, chronic ?- continue home medications ? 4. Hyperlipidemia ?- continue home medications. 5. Obesity with BMI 35. ?- dietary consultation. Obesity puts patient at much greater risk of morbidity and mortality from his COVID infection. 6. 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 Keep Mg >2, K>4. - no chest pain or dizziness, no elevation in troponin - will stop remdesivir for now given his bradycardia - was already planned to have pacemaker placed as outpatient -will continue telemetry while in the hospital Code: DNR/ DNI as discussed with patient. Surrogate decision maker is the patient's . Time Spent With Patient Critical Care time: I spent a total of [] minutes of critical care time on this patient's care today; this time is exclusive of procedural time. Quality VTE Deep Vein Thrombosis/Pulmonary Embolism Present on Admission: No
--- NOTE | 2021-02-24 19:11 | PC.NURSE ---
Report received, care assumed 1530. Pt. A&Ox4. Repositioning self in room, including periods of prone positioning. Denies pain, SOB. On 4LNC and saturating low to mid-90's. VSS other than baseline bradycardia/heart block. Puri catheter in place.
[2021-02-24] MEDS: LIDOCAINE PATCH 1 EACH ADH..PATCH TOP (21:20)
[2021-02-24] MEDS: MAGNESIUM HYDROXIDE 30 ML UDC PO (21:21)
[2021-02-24] MEDS: ATORVASTATIN 20 MG TABLET 40 MG PO (21:21)
[2021-02-25] VITALS (14 sets, daily range): BP systolic 105–151; BP diastolic 49–67; PULSE 30–62; RESP 12–31; TEMP 36.1–37; O2SAT 91–96
[2021-02-25] MEDS: DEXAMETHASONE 10 MG/ML VIAL 6 MG IV (08:12)
[2021-02-25] MEDS: DOCUSATE 100 MG CAPSULE PO ×2 (08:13→20:03)
[2021-02-25] MEDS: ENOXAPARIN 40 MG/0.4 ML SYRINGE SUBCUT (08:13)
[2021-02-25] MEDS: HYDRALAZINE 25 MG TABLET 100 MG PO ×2 (08:13→20:03)
[2021-02-25] MEDS: ASPIRIN EC 81 MG TABLET PO (08:14)
[2021-02-25] MEDS: AMLODIPINE 5 MG TABLET 10 MG PO (08:14)
[2021-02-25] MEDS: lisinopriL 20 MG TABLET 40 MG PO (08:14)
[2021-02-25] MEDS: BARICITINIB 2 MG TABLET 4 MG PO (08:14)
[2021-02-25] MEDS: FAMOTIDINE 20 MG TABLET PO ×2 (08:14→20:03)
[2021-02-25] MEDS: TAMSULOSIN 0.4 MG CAPSULE PO (08:14)
[2021-02-25] MEDS: SODIUM CHLORIDE 0.9% FLUSH 10 ML IV ×2 (08:15→20:05)
[2021-02-25] MEDS: INSULIN GLARGINE 100 UNIT/ML 3ML PEN 40 UNIT SUBCUT ×2 (08:48→20:43)
--- NOTE | 2021-02-25 11:25 | P.PN_ITS ---
Subjective Subjective Interval history: 65 y/o male admitted with respiratory failure secondary to Covid pneumonia. He is making good progress, he is now on 4 liters of oxygen. He still desaturates with minimal activity but getting better daily. No specific complaints Exam Vital Signs (past 8 hours): - 02/25/21 04:00 02/25/21 05:00 02/25/21 06:00 Temperature 97.9 F Pulse Rate 30 L 31 L 36 L Respiratory Rate 31 H 26 H 12 Blood Pressure 151/67 H Pulse Oximetry 91 95 94 02/25/21 07:50 Temperature 96.9 F L Pulse Rate 62 Respiratory Rate 22 Blood Pressure 143/64 H Pulse Oximetry 92 Fraction of Inspired Oxygen 40 Oxygen Delivery Method High Flow Nasal Cannula Oxygen Flow Rate 4 Narrative Exam Narrative: pleasant gentleman resting comfortably in no acute distress Resp Other: Lungs: decreased breath sounds Cardio Other: RRR nl Sl S2 GI Other: abd: soft/ non tender/ non distended Extrem Other: no edema Objective Labs Result Diagrams: 02/23/21 04:20 02/23/21 04:20 [facility] Medical History (Updated 02/24/21 @ 13:56 by Caroline Winter MD) Diabetes HLD (hyperlipidemia) HTN (hypertension) Surgical History (Updated 02/16/21 @ 10:54 by Javid Thrasher DO) H/O knee surgery H/O shoulder surgery Family History (Updated 02/16/21 @ 10:55 by Javid Thrasher DO) Grandfather Diabetes mellitus Brother Hypertension Sister Hypertension Social History household members: spouse Smoking Status: Never smoker alcohol intake: former Assessment & Plan Assessment & Plan narrative: 1. Acute respiratory failure secondary to COVID pneumonia -patient still requires 4 L of oxygen -will continue Decadron, remdesivir held due to bradycardia -CT angio of chest neck -home when no longer desaturating on 4 L of oxygen her less 2. Type 2 diabetes -some evidence of hypoglycemia, insulin adjusted 3. Hypertension -continue current treat 4. Second-degree AV block -remdesivir on home -outpatient evaluation for pacemaker placed -continue telemetry Time Spent With Patient Critical Care time: I spent a total of [] minutes of critical care time on this patient's care today; this time is exclusive of procedural time. Quality VTE Deep Vein Thrombosis/Pulmonary Embolism Present on Admission: No
[2021-02-25] MEDS: INSULIN LISPRO 100 UNIT/ML 3ML VIAL 8 UNIT SUBCUT ×2 (12:11→17:07)
[2021-02-25] MEDS: INSULIN LISPRO 100 UNIT/ML 3ML VIAL SUBCUT ×2 (12:11→17:07)
--- NOTE | 2021-02-25 12:11 | CM.DPC ---
DCP Cont: Discussed patient during team rounds. It is noted, patient has shown some signs of improvement. He does continue to de-sat upon exertions, and goal is to have patient on under 4liters before discharge, possibly on home oxygen. P: DCP to continue to follow. Plan is home once his oxygen sats improve, and does not have high oxygen demands. Cristine Best RN/[employer]
[2021-02-25] MEDS: ATORVASTATIN 20 MG TABLET 40 MG PO (20:03)
[2021-02-25] MEDS: LIDOCAINE PATCH 1 EACH ADH..PATCH TOP (20:04)
[2021-02-26] VITALS (10 sets, daily range): BP systolic 118–161; BP diastolic 59–72; PULSE 35–72; RESP 18–31; TEMP 36.4–37.1; O2SAT 89–96
[2021-02-26] MEDS: DOCUSATE 100 MG CAPSULE PO (08:30)
[2021-02-26] MEDS: AMLODIPINE 5 MG TABLET 10 MG PO (08:30)
[2021-02-26] MEDS: ENOXAPARIN 40 MG/0.4 ML SYRINGE SUBCUT (08:30)
[2021-02-26] MEDS: SODIUM CHLORIDE 0.9% FLUSH 10 ML IV (08:30)
[2021-02-26] MEDS: ASPIRIN EC 81 MG TABLET PO (08:30)
[2021-02-26] MEDS: FAMOTIDINE 20 MG TABLET PO ×2 (08:30→20:27)
[2021-02-26] MEDS: lisinopriL 20 MG TABLET 40 MG PO (08:30)
[2021-02-26] MEDS: TAMSULOSIN 0.4 MG CAPSULE PO (08:30)
[2021-02-26] MEDS: DEXAMETHASONE 10 MG/ML VIAL 6 MG IV (08:31)
[2021-02-26] MEDS: HYDRALAZINE 25 MG TABLET 100 MG PO ×2 (08:31→20:25)
[2021-02-26] MEDS: BARICITINIB 2 MG TABLET 4 MG PO (08:31)
[2021-02-26] MEDS: INSULIN GLARGINE 100 UNIT/ML 3ML PEN 40 UNIT SUBCUT (08:33)
--- NOTE | 2021-02-26 09:48 | DIET.PN1 ---
Dietary Progress Note RD Note: 65y covid+ patient with uncontrolled DM2 (A1c 12.0) on LOS day 10 seeing improvements in breathing on NC. Still desaturates with activity. Despite this, pts POs 100% for all meals including ONS Ensure Max (low carb, high PRO formulation). Pts BGs much better controlled with numbers <200. Ht: 172.72 cm Wt: 101 kg BMI: 35.7 Last BM: 02/24/21 (02/24/21 10:51) MNA: 12 Jj Score: 20 Diet: 02/16/21 Breakfast Carbohydrate Consistent Diet Diet Modifications: ONS Ensure Max c lunch Carbohydrate level: Large (4 CHO) Nutrition Percent Meal Consumed 100% 02/25/21 21:22 Percent Meal Consumed 100 02/25/21 13:44 Percent Meal Consumed 100% 02/25/21 09:43 Percent Meal Consumed 100% 02/24/21 18:00 Percent Meal Consumed 100% 02/24/21 13:57 Labs: RBC 3.60 X10^6/uL (4.5-5.9) L 02/23/21 04:20 Hgb 10.2 g/dL (13.5-17.5) L 02/23/21 04:20 Hct 31.0 % (41-53) L 02/23/21 04:20 Creatinine 1.07 mg/dL (0.66-1.25) 02/23/21 04:20 Hemoglobin A1c 12.0 % (4.0-6.0) H 02/16/21 03:20 Lactate 2.0 mmol/L (0.7-2.1) 02/16/21 03:20 Ferritin 391 ng/mL (18-464) 02/16/21 03:20 NT-Pro-B Natriuret Pep 650 pg/mL (<125) H 02/16/21 03:20 Monitoring/Evaluations: monitoring POs, recc referral to DSME once d/c'd for outpatient support of uncontrolled DM2. Electronically Signed by: Paula Singh 02/26/21 09:48 Clinical Dietitian [address] [id number]
[2021-02-26] MEDS: INSULIN LISPRO 100 UNIT/ML 3ML VIAL 8 UNIT SUBCUT ×2 (12:14→16:54)
[2021-02-26] MEDS: INSULIN LISPRO 100 UNIT/ML 3ML VIAL SUBCUT ×3 (12:14→20:32)
--- NOTE | 2021-02-26 12:57 | PM.PN.1 ---
Subjective Subjective Interval history: The patient is a 65-year-old male admitted to the hospital with respiratory failure due to COVID pneumonia. He has made significant improvement. Today is day 10 of dexamethasone. He is down to 4 L of oxygen at rest. However with minimal activity the patient desaturates significantly. He continues to require Puri catheter for urinary retention. Exam Vital Signs (past 8 hours): - 02/26/21 07:24 02/26/21 08:16 02/26/21 11:22 Temperature 97.7 F Pulse Rate 58 L 53 L Respiratory Rate 24 26 H Blood Pressure 118/68 Pulse Oximetry 95 95 94 02/26/21 12:00 Temperature 97.6 F Pulse Rate 56 L Respiratory Rate 24 Blood Pressure 129/62 Pulse Oximetry 91 Fraction of Inspired Oxygen 40 Oxygen Delivery Method High Flow Nasal Cannula Oxygen Flow Rate 5 Narrative Exam Narrative: Pleasant gentleman resting comfortably in no obvious distress Resp Other: Lungs decreased breath sounds but clear to auscultation Cardio Other: Cardiac exam: Regular rate and rhythm normal S1-S2 GI Other: Abdomen soft nontender nondistended Other: Indwelling Puri in place Extrem Other: No edema Objective Labs Result Diagrams: 02/23/21 04:20 02/23/21 04:20 [facility] Medical History (Updated 02/24/21 @ 13:56 by Caroline Winter MD) Diabetes HLD (hyperlipidemia) HTN (hypertension) Surgical History (Updated 02/16/21 @ 10:54 by Javid Thrasher DO) H/O knee surgery H/O shoulder surgery Family History (Updated 02/16/21 @ 10:55 by Javid Thrasher DO) Grandfather Diabetes mellitus Brother Hypertension Sister Hypertension Social History household members: spouse Smoking Status: Never smoker alcohol intake: former Assessment & Plan Assessment & Plan narrative: Acute respiratory failure secondary to COVID pneumonia -patient still requires 4 L of oxygen -will continue Decadron, remdesivir held due to bradycardia -CT angio of chest neck completed February 16, showed bilateral infiltrates consistent with atypical pneumonia and no evidence of pulmonary embolus -home when no longer desaturating on 4 L of oxygen her less -today is day 10 of steroids. Will discontinue Decadron 2. Type 2 diabetes -some evidence of hypoglycemia, insulin adjusted -hypoglycemic again this morning -will decrease insulin to 20 units b.i.d. given his hypoglycemia and discontinuation of steroid 3. Hypertension -continue amlodipine and lisinopril 4. Second-degree AV block -outpatient evaluation for pacemaker placed -continue telemetry Time Spent With Patient Critical Care time: I spent a total of [] minutes of critical care time on this patient's care today; this time is exclusive of procedural time. Quality VTE Deep Vein Thrombosis/Pulmonary Embolism Present on Admission: No
--- NOTE | 2021-02-26 13:13 | CM.DPC ---
DCP Cont: Discussed patient during team rounds. Patient continues to improve. The barrier is that upon movement/exertion, patient desats, which causes him to have increased oxygen need. At this time, if patient can maintain at 4 liters, may be able to go home with oxygen. He is continuing to work with respiratory therapy and is compliant with his care. P: DCP to continue to follow. Plan is for home when he is deemed medically stable and can tolerate lower amount of oxygen needs. Cristine Best RN/Special Programs Director
[2021-02-26] MEDS: ATORVASTATIN 20 MG TABLET 40 MG PO (20:27)
[2021-02-26] MEDS: LIDOCAINE PATCH 1 EACH ADH..PATCH TOP (20:28)
[2021-02-26] MEDS: INSULIN GLARGINE 100 UNIT/ML 3ML PEN 20 UNIT SUBCUT (20:32)
[2021-02-27] VITALS (14 sets, daily range): BP systolic 109–157; BP diastolic 51–65; PULSE 39–58; RESP 17–24; TEMP 36.6–36.8; O2SAT 87–97
[2021-02-27 06:25] LABS: Add Manual Diff / Slide Review NO; Basophils Absolute Auto 100 /uL (0-100); Basophils Percent Auto 0.9 % (0-2); Eosinophils Absolute Auto 100 /uL (0-450); Eosinophils Percent Auto 0.8 % (2-4); Hematocrit 32.5 % (41-53); Lymphocytes Absolute Auto 3400 /uL (1100-4500); Lymphocytes Percent Auto 25.6 % (25-40); Mean Corpuscular HGB Conc 33.7 % (30-36); Mean Corpuscular Hemoglobin 29.1 PG (26-34); Mean Corpuscular Volume 86.4 fL (80-100); Monocytes Absolute Auto 700 /uL (0-900); Monocytes Percent Auto 5.5 % (3-14); Neutrophils Absolute Auto 8800 /uL (1500-7000); Neutrophils Percent Auto 67.2 % (50-75); Platelet Count 347 X10^3/uL (150-400); Red Blood Cell Count 3.76 X10^6/uL (4.5-5.9); Red Cell Distribution Width 13.7 % (11.6-14.8); White Blood Cell Count 13.1 X10^3/uL (4.5-11.0)
[2021-02-27 06:26] LABS: BUN Creatinine Ratio 41.2 (6-22); Blood Urea Nitrogen 42 mg/dL (9-20); Calcium 8.2 mg/dL (8.4-10.2); Carbon Dioxide 26 mmol/L (22-32); Chloride 112 mmol/L (98-107); Estimated Glomerular Filt Rate > 60.0 mL/min (>60); Glucose 107 mg/dL (80-110); HEMOLYSIS < 15 (0-50); Potassium 4.4 mmol/L (3.4-5.1); Sodium 141 mmol/L (137-145)
[2021-02-27] MEDS: MAGNESIUM HYDROXIDE 30 ML UDC PO (09:20)
[2021-02-27] MEDS: HYDRALAZINE 25 MG TABLET 100 MG PO ×2 (09:21→20:23)
[2021-02-27] MEDS: BARICITINIB 2 MG TABLET 4 MG PO (09:22)
[2021-02-27] MEDS: lisinopriL 20 MG TABLET 40 MG PO (09:22)
[2021-02-27] MEDS: AMLODIPINE 5 MG TABLET 10 MG PO (09:23)
[2021-02-27] MEDS: ASPIRIN EC 81 MG TABLET PO (09:23)
[2021-02-27] MEDS: TAMSULOSIN 0.4 MG CAPSULE PO (09:23)
[2021-02-27] MEDS: DOCUSATE 100 MG CAPSULE PO ×2 (09:24→20:23)
[2021-02-27] MEDS: FAMOTIDINE 20 MG TABLET PO ×2 (09:24→20:23)
[2021-02-27] MEDS: ENOXAPARIN 40 MG/0.4 ML SYRINGE SUBCUT (09:25)
[2021-02-27] MEDS: SODIUM CHLORIDE 0.9% FLUSH 10 ML IV ×2 (09:27→20:25)
[2021-02-27] MEDS: INSULIN GLARGINE 100 UNIT/ML 3ML PEN 20 UNIT SUBCUT (09:28)
--- NOTE | 2021-02-27 12:15 | PM.DS.1 ---
History of Present Illness History of Present Illness Date Patient Seen: 02/27/21 Chief complaint: Oxygen levels are low Narrative: This is a 65-year-old male with a past medical history of obesity, diabetes, hypertension, and hyperlipidemia who was recently admitted to an outside hospital from February 10 to February 14 with COVID pneumonia, requiring heated high-flow with 50 L at 40% FiO2 according to documentation.? The patient decided to leave against medical advice, despite the fact that he continued to desaturate while on maximal nasal cannula.? He returned to the emergency room here with continued shortness of breath and respiratory distress.? He was restarted on heated high-flow with improvement.? He was admitted to Medicine for further management. CTA showed no PE. CXR and remainder of imaging showing bilateral infiltrates consistent with COVID 19 pneumonia. Discharge Providers Provider Date of admission: 02/16/21 05:59 Primary care physician: Malorie Collins DO Consults: 02/27/21 11:19 Consult to Respiratory Therapy Evaluate & Treat Comment: home O2 evaluation Physician Instructions: Evaluate and treat Discharge provider: Caroline Winter MD Summary Hospital Course Discharge Diagnosis: 1. Acute respiratory failure secondary to COVID pneumonia 2. Type 2 diabetes 3. Hyperlipidemia 4. Hypertension 5. Bradycardia, patient is awaiting pacemaker placement 6. Urinary retention, now with chronic indwelling Puri catheter Hospital Course: Patient was admitted to the hospital for respiratory failure due to COVID pneumonia. He was placed on Decadron remdesivir and varus admit. The patient completed treatment with remdesivir and Decadron. He required high-flow oxygen, he was ultimately transition to nasal cannula. Over several days the patient was able to be transitioned off oxygen. Continues to desaturate with activity. Despite that he has made significant improvement. He did have a CTA which was negative for PE. Patient's blood sugars were elevated during the hospital stay related to Decadron. He continue treatment for both hypertension hyperlipidemia. The patient did develop worsening bradycardia on the remdesivir. Given remdesivir is ability to cause bradycardia this was aborted. Exam Vital Signs (past 8 hours): - 02/27/21 08:00 02/27/21 09:21 02/27/21 09:22 Temperature 98.1 F Pulse Rate 45 L 49 L 49 L Respiratory Rate 20 Blood Pressure 125/61 125/61 125/61 Pulse Oximetry 87 L 02/27/21 10:46 Temperature Pulse Rate 39 L Respiratory Rate Blood Pressure Pulse Oximetry Fraction of Inspired Oxygen 40 Oxygen Delivery Method High Flow Nasal Cannula Oxygen Flow Rate 10 Objective Labs Result Diagrams: 02/27/21 06:00 02/27/21 06:00 Labs: Laboratory Results - last 24 hr 02/27/21 02/27/21 06:00 06:00 WBC 13.1 H RBC 3.76 L Hgb 11.0 L Hct 32.5 L MCV 86.4 MCH 29.1 MCHC 33.7 RDW 13.7 Plt Count 347 Neut % (Auto) 67.2 Lymph % (Auto) 25.6 [place] % (Auto) 5.5 Eos % (Auto) 0.8 L Baso % (Auto) 0.9 Neut # (Auto) 8800 H Lymph # (Auto) 3400 [place] # (Auto) 700 Eos # (Auto) 100 Baso # (Auto) 100 Sodium 141 Potassium 4.4 Chloride 112 H Carbon Dioxide 26 BUN 42 H Creatinine 1.02 Estimated GFR > 60.0 BUN/Creatinine Ratio 41.2 H Glucose 107 Calcium 8.2 L PFSH Medical History (Updated 02/24/21 @ 13:56 by Caroline Winter MD) Diabetes HLD (hyperlipidemia) HTN (hypertension) Surgical History (Updated 02/16/21 @ 10:54 by Javid Thrasher DO) H/O knee surgery H/O shoulder surgery Family History (Updated 02/16/21 @ 10:55 by Javid Thrasher DO) Grandfather Diabetes mellitus Brother Hypertension Sister Hypertension Social History household members: spouse Smoking Status: Never smoker alcohol intake: former Discharge Plan Discharge orders & Medications Prescriptions: No Action aspirin 81 mg tablet,delayed release (DR/EC) 81 mg PO DAILY RF: 0 atorvastatin 40 mg Tablet 40 mg PO QPM RF: 0 chlorthalidone 25 mg Tablet 25 mg PO DAILY RF: 0 amlodipine 10 mg Tablet 10 mg PO DAILY RF: 0 hydralazine 100 mg Tablet 100 mg PO TID RF: 0 nystatin 100,000 unit/gram powder 1 applic TOPICAL BID PRN (Reason: Rash) RF: 0 metformin 500 mg Tablet Extended Release 24 Hr 500 mg PO DAILY RF: 0 insulin glargine 100 unit/mL (3 mL) Insulin Pen 40 unit SUBCUT DAILY RF: 0 lisinopril 20 mg tablet 40 mg PO QPM RF: 0 Follow up/Referrals: Malorie Collins DO [Primary Care Provider] - Discharge Data Primary Care Provider: Malorie Collins Quality VTE Deep Vein Thrombosis/Pulmonary Embolism Present on Admission: No
[2021-02-27] MEDS: INSULIN LISPRO 100 UNIT/ML 3ML VIAL SUBCUT (17:01)
[2021-02-27] MEDS: INSULIN LISPRO 100 UNIT/ML 3ML VIAL 8 UNIT SUBCUT (17:02)
--- NOTE | 2021-02-27 17:23 | PM.PN.1 ---
Subjective Subjective Date Patient Seen: 02/27/21 Interval history: The patient is a 65-year-old male admitted to the hospital with acute respiratory failure due to COVID pneumonia. The patient has been treated with Decadron, initially remdesivir which was held due to bradycardia, and baracitinib. He has made excellent progress. He was taper down to 2 L of oxygen. O2 sat on room air earlier today was 92%. Unfortunately balloon the patient ambulated he desaturated to oxygen sats of 74%. He was placed back on a L of oxygen. And it took some time for him to really improve his oxygenation. He remains bradycardic. Patient has type 2 Mobitz heart block and has plans for an outpatient pacemaker once he he has recovered from his COVID pneumonia Exam Vital Signs (past 8 hours): - 02/27/21 10:29 02/27/21 10:46 02/27/21 12:46 Temperature 98.2 F Pulse Rate 42 L 39 L 49 L Respiratory Rate 24 18 Blood Pressure 121/57 L Pulse Oximetry 93 96 02/27/21 16:00 Temperature 98 F Pulse Rate 46 L Respiratory Rate 20 Blood Pressure 120/57 L Pulse Oximetry 92 Fraction of Inspired Oxygen 40 Oxygen Delivery Method High Flow Nasal Cannula Oxygen Flow Rate 2 Narrative Exam Narrative: Pleasant gentleman somewhat anxious but lying in bed Resp Other: Lungs: Clear to auscultation Cardio Other: Cardiac exam: Bradycardic, regular rate and rhythm normal S1-S2 GI Other: Abdomen soft nontender nondistended Extrem Other: Extremity no edema Objective Labs Result Diagrams: 02/27/21 06:00 02/27/21 06:00 Labs: Laboratory Results - last 24 hr 02/27/21 02/27/21 06:00 06:00 WBC 13.1 H RBC 3.76 L Hgb 11.0 L Hct 32.5 L MCV 86.4 MCH 29.1 MCHC 33.7 RDW 13.7 Plt Count 347 Neut % (Auto) 67.2 Lymph % (Auto) 25.6 [place] % (Auto) 5.5 Eos % (Auto) 0.8 L Baso % (Auto) 0.9 Neut # (Auto) 8800 H Lymph # (Auto) 3400 [place] # (Auto) 700 Eos # (Auto) 100 Baso # (Auto) 100 Sodium 141 Potassium 4.4 Chloride 112 H Carbon Dioxide 26 BUN 42 H Creatinine 1.02 Estimated GFR > 60.0 BUN/Creatinine Ratio 41.2 H Glucose 107 Calcium 8.2 L PFSH Medical History (Updated 02/24/21 @ 13:56 by Caroline Winter MD) Diabetes HLD (hyperlipidemia) HTN (hypertension) Surgical History (Updated 02/16/21 @ 10:54 by Javid Thrasher DO) H/O knee surgery H/O shoulder surgery Family History (Updated 02/16/21 @ 10:55 by Javid Thrasher DO) Grandfather Diabetes mellitus Brother Hypertension Sister Hypertension Social History household members: spouse Smoking Status: Never smoker alcohol intake: former Assessment & Plan Assessment & Plan narrative: 1. Acute respiratory failure secondary to COVID pneumonia -patient is making slow but steady improvement -he is currently on 2 L of oxygen -will attempt oxygen weaning trial tomorrow, with plans for discharge home on home O2 -he completed a 10 day course of Decadron, remdesivir discontinued because of bradycardia, patient on Baracitinib -home tomorrow if he tolerates ambulation without significant desaturation 2. Type 2 diabetes -insulin adjusted for hypoglycemia -will resume 40 units a day of Lantus which is his home dose 3. Hypertension -continue amlodipine 4. Asymptomatic bradycardia -plans for outpatient pacemaker 5. Urinary retention -continue Flomax -Puri catheter to remain in place until outpatient urology evaluation can be obtained - Time Spent With Patient Critical Care time: I spent a total of [] minutes of critical care time on this patient's care today; this time is exclusive of procedural time. Quality VTE Deep Vein Thrombosis/Pulmonary Embolism Present on Admission: No
--- NOTE | 2021-02-27 18:24 | PC.NURSE ---
patient is ambulating in the room with RT madera.
--- NOTE | 2021-02-27 19:41 | PC.NURSE ---
Encouraged to ambulate in the room as much as possible. Walked around room with RT and desatted to low 80s briefly then recovered to low 90s quickly. 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 Pt states he is feeling better each time he walks, less shortness of breath experienced.
[2021-02-27] MEDS: ATORVASTATIN 20 MG TABLET 40 MG PO (20:24)
[2021-02-27] MEDS: LIDOCAINE PATCH 1 EACH ADH..PATCH TOP (20:25)
[2021-02-27] MEDS: INSULIN GLARGINE 100 UNIT/ML 3ML PEN 30 UNIT SUBCUT (20:55)
[2021-02-28] VITALS: BP 103/47; PULSE 51; RESP 22; TEMP 36.7; O2SAT 94
[2021-02-28 04:00] VITALS: BP 146/65; PULSE 69; RESP 24; TEMP 36.6; O2SAT 91
[2021-02-28 04:05] VITALS: O2SAT 92
--- NOTE | 2021-02-28 06:41 | PC.NURSE ---
0600- Patient had one episode of feeling short of breath. He states he woke feeling like I couldn't breathe. Patient saturations down to mid 80's. Patient talked through this with pursed lip breathing and reassurance saturations improved rapidly. No increase in 02 needed.
[2021-02-28 08:00] VITALS: BP 134/63; PULSE 52; RESP 21; TEMP 36.2; O2SAT 96
[2021-02-28] MEDS: BARICITINIB 2 MG TABLET 4 MG PO (08:33)
[2021-02-28] MEDS: ENOXAPARIN 40 MG/0.4 ML SYRINGE SUBCUT (08:33)
[2021-02-28] MEDS: DOCUSATE 100 MG CAPSULE PO (08:34)
[2021-02-28] MEDS: ASPIRIN EC 81 MG TABLET PO (08:34)
[2021-02-28] MEDS: SODIUM CHLORIDE 0.9% FLUSH 10 ML IV (08:34)
[2021-02-28] MEDS: FAMOTIDINE 20 MG TABLET PO (08:34)
[2021-02-28] MEDS: lisinopriL 20 MG TABLET 40 MG PO (08:34)
[2021-02-28] MEDS: METFORMIN HCL 500 MG TABLET PO (08:34)
[2021-02-28] MEDS: TAMSULOSIN 0.4 MG CAPSULE PO (08:34)
[2021-02-28] MEDS: AMLODIPINE 5 MG TABLET 10 MG PO (08:34)
[2021-02-28] MEDS: HYDRALAZINE 25 MG TABLET 100 MG PO (08:36)
[2021-02-28] MEDS: INSULIN GLARGINE 100 UNIT/ML 3ML PEN 30 UNIT SUBCUT (10:34)
--- NOTE | 2021-02-28 11:32 | RT ---
RA at rest before walk reading 92 Walked 50' high reading was 94 and low 90% and rested for a couple of minutes and walked another 100' low 88% and rested again for a couple minutes. The third walk we did another 50' and at the end he was reading 79% an tachypneic. All 3 walks done on 8 L/M HFNC and placed back on room air and reading 88%
[2021-02-28 11:38] VITALS: O2SAT 92
[2021-02-28 12:00] VITALS: BP 118/54; PULSE 50; RESP 16; TEMP 36.4; O2SAT 97
[2021-02-28] MEDS: INSULIN LISPRO 100 UNIT/ML 3ML VIAL 8 UNIT SUBCUT (12:37)
[2021-02-28] MEDS: INSULIN LISPRO 100 UNIT/ML 3ML VIAL SUBCUT (12:37)
--- NOTE | 2021-02-28 15:41 | CM.DPC ---
DCP Cont: Patient is to discharge home today. He has [employer] oxygen at home. Hospitalist would like patient to have home health nursing. Asked patient if he is under their services at this time, stated, he is not, has no preference upon agencies. Confirmed that [facility] does not take [facility]. Spoke to Elise at [facility], indicated, they do accept prime. Let her know about referral. Faxed over signed face to face, face sheet, H&P, orders, DC Summary pending. P: Patient is discharging home today with [facility] nursing, and will have home oxygen. Cristine Best, IAIN/Hide House Supervisor
--- NOTE | 2021-02-28 17:36 | P.DS_ITS ---
History of Present Illness History of Present Illness Date Patient Seen: 03/01/21 Chief complaint: Oxygen levels are low Narrative: This is a 65-year-old male with a past medical history of obesity, diabetes, hypertension, and hyperlipidemia who was recently admitted to an outside hospital from February 10 to February 14 with COVID pneumonia, requiring heated high-flow with 50 L at 40% FiO2 according to documentation. The patient decided to leave against medical advice, despite the fact that he continued to desaturate while on maximal nasal cannula. He returned to the emergency room here with continued shortness of breath and respiratory distress. He was restarted on heated high-flow with improvement. He was admitted to Medicine for further management. CTA showed no PE. CXR and remainder of imaging showing bilateral infiltrates consistent with COVID 19 pneumonia. 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 He had been hospitalized at [facility] and left the hospital Against Medical Advice. The patient became markedly hypoxic at home and presented to [facility] for inpatient treatment. Patient was admitted to the hospital and treated with 10 days of Decadron, remdesivir initially. The remdesivir was discontinued as the patient in demonstrated bradycardia. Patient was placed on Baracitinib as well. The patient made slow but steady progress. He was hyperglycemic and insulin was adjusted during the hospital stay for that. He ultimately was able to be tapered off oxygen at rest after requiring high-flow oxygen. He was weaned down from the high-flow to nasal cannula. The patient ultimately was tapered off of nasal cannula. He did however continue to desaturate with activity. He would require up to 8 L and minutes to recover. After recovering the patient was able to be back on room air with an oxygen saturation of 93-94%. The patient does have oxygen at home. He was instructed to use oxygen with activity. Should he become markedly short of breath he needs to rest until he recovers at which point the patient can remove the oxygen once a saturation is above 92%. He does have a home oximetry. The patient is currently followed by home health nursing. He also has home oxygen available. The patient had urinary retention during the hospital stay. He had a Puri catheter placed and it was removed. However the patient was unable to empty his bladder. He was started on Flomax for this and will be discharged home with an indwelling Puri with plans to follow-up with urology as an outpatient. Patient had known bradycardia. He currently has plans to follow-up with his portfolio manager for an outpatient elective pacemaker once he has fully recovered from COVID pneumonia. Patient was discharged home with plans to follow-up with Dr. Collins via video visit next week. Status at Discharge Cognitive/behavioral status at discharge: oriented Functional status at discharge: independent ambulation Overall status at discharge: patient is progressing back to baseline Exam Vital Signs (past 8 hours): - 02/28/21 11:38 02/28/21 12:00 Temperature 97.5 F L Pulse Rate 50 L Respiratory Rate 16 Blood Pressure 118/54 L Pulse Oximetry 92 97 Fraction of Inspired Oxygen 40 Oxygen Delivery Method Nasal Cannula Oxygen Flow Rate 2 Narrative Exam Narrative: Pleasant gentleman in no obvious distress Resp Other: Lungs decreased breath sounds but clear to auscultation Cardio Other: Cardiac exam bradycardic regular rate and rhythm GI Other: Abdomen soft and nontender Other: Puri catheter in place Extrem Other: Extremity no edema Objective Labs Result Diagrams: 02/27/21 06:00 02/27/21 06:00 [facility] Medical History (Updated 02/24/21 @ 13:56 by Caroline Winter MD) Diabetes HLD (hyperlipidemia) HTN (hypertension) Surgical History (Updated 02/16/21 @ 10:54 by Javid Thrasher DO) H/O knee surgery H/O shoulder surgery Family History (Updated 02/16/21 @ 10:55 by Javid Thrasher DO) Grandfather Diabetes mellitus Brother Hypertension Sister Hypertension Social History household members: spouse Smoking Status: Never smoker alcohol intake: former Discharge Assessment & Plan Assessment and Plan Assessment: 1. Acute hypoxic respiratory failure secondary to COVID pneumonia 2. Asymptomatic bradycardia, type 2 Mobitz heart block, plans for outpatient pacemaker 3. Type 2 diabetes 4. Hypertension 5. Hyperlipidemia 6. Urinary retention with an indwelling Puri catheter Plan of Treatment: Patient is discharged home with home health residential oxygen has previously been arranged Patient will follow-up with his PCP next week Medications as prescribed Discharge Plan Discharge Plan Patient Disposition: Home Discharge orders & Medications Prescriptions: New tamsulosin [Flomax] 0.4 mg Capsule 0.4 mg PO DAILY Qty: 30 RF: 0 Continued aspirin 81 mg tablet,delayed release (DR/EC) 81 mg PO DAILY RF: 0 atorvastatin 40 mg Tablet 40 mg PO QPM RF: 0 chlorthalidone 25 mg Tablet 25 mg PO DAILY RF: 0 amlodipine 10 mg Tablet 10 mg PO DAILY RF: 0 hydralazine 100 mg Tablet 100 mg PO TID RF: 0 nystatin 100,000 unit/gram powder 1 applic TOPICAL BID PRN (Reason: Rash) RF: 0 metformin 500 mg Tablet Extended Release 24 Hr 500 mg PO DAILY RF: 0 insulin glargine 100 unit/mL (3 mL) Insulin Pen 40 unit SUBCUT DAILY RF: 0 lisinopril 20 mg tablet 40 mg PO QPM RF: 0 Follow up/Referrals: Malorie Collins DO [Primary Care Provider] - Discharge Health Status Multidrug resistant organism: No MDRO Diet/Activity/Treatments Diet: Low-sodium and Low-cholesterol Activity: as tolerated Catheter: 2-way Puri Oxygen: Patient to use oxygen with activity, he will take O2 SAt with monitor Other treatments: patient to use up to 8-10 liters with activity, rest once recovered, can take off oxygen Skin/Wound/Dressing Care Report to your healthcare provider any signs of infection, such as:: chills, fever Discharge Data Primary Care Provider: Malorie Collins VTE Deep Vein Thrombosis/Pulmonary Embolism Present on Admission: No
== END 2021-02-28 17:00 | disposition home health service (06) | DRG 177 ==
LOC: ED 05:54 → AC 06:00 → ICU 06:19
PROVIDERS: Internal Medicine; Nurse Practitioner Family; Admitting Provider Internal Medicine; Emergency Provider Emergency Medicine; PCP Family Medicine; Referring Provider Emergency Medicine; Visit Provider Internal Medicine
DX: U07.1 COVID-19 (principal); J12.82 Pneumonia due to coronavirus disease 2019; J96.01 Acute respiratory failure with hypoxia; I44.1 Atrioventricular block, second degree; R33.9 Retention of urine, unspecified; I10 Essential (primary) hypertension; E78.5 Hyperlipidemia, unspecified; E66.9 Obesity, unspecified; E11.65 Type 2 diabetes mellitus with hyperglycemia; R00.1 Bradycardia, unspecified; Z66 Do not resuscitate; Z91.19 Patient's noncompliance with other medical treatment and regimen; Z79.4 Long term (current) use of insulin; Z68.35 Body mass index [BMI] 35.0-35.9, adult
CPT/HCPCS: 36569; 36592; 36600; 71045; 71275; 80048; 80053; 80061; 82550; 82728; 82805; 82962; 83036; 83605; 83615; 83735; 83880; 84145; 84443; 84484; 85025; 85027; 85379; 86140; 87040; 87633; 87797; 93005; 93010; 94618; 94760; 94762; 96365; 96366; 96375; 99284; 99285; A9270; J1100; J1642; J1650; J1815; Q9967

== ENCOUNTER 2021-03-06 08:00 | Emergency (ER) | payer OTHER, SELFPAY ==
[2021-02-16 23:44] VITALS: BMI 35.7
[2021-03-06] VITALS (9 sets, daily range): BP systolic 141–172; BP diastolic 63–79; PULSE 45–74; RESP 18; TEMP 36.7; O2SAT 94–99; BMI 35.2
--- NOTE | 2021-03-06 08:07 | ED_ITS ---
HPI - Male Genitourinary General Chief complaint: Urogenital-Male Stated complaint: Urinary Infection Time Seen by Provider: 03/06/21 08:06 Source: patient Mode of arrival: Ambulatory Limitations: no limitations History of Present Illness HPI Narrative: 65-year-old male comes emergency department with concern for painful urinary catheter at the urethral opening in within the penis. He also states his noticed some discharge today when she was helping with his back. He was discharged on February 28 for COVID pneumonia with acute hypoxic respiratory failure. He was discharged home on 4 L. He states he had catheter about for 5 times straight catheters and eventually they placed a Puri had patient's request. He is taking Flomax daily. Patient states he had some minor pain but it has become more persistent and he noticed that he has had discharge just in the last day. Patient states he has not appreciate any changes to the urine color. It has been draining regularly. He noted some discharge coming from around the opening of the urethra and the urinary catheter but is unclear if it seems more watery or thicker. He denies fevers. He denies any new abdominal, back or flank pain. Related Data Home Medications Medication Instructions Recorded Confirmed aspirin 81 mg tablet,delayed 81 mg PO DAILY 04/07/19 03/06/21 release amlodipine 10 mg tablet 10 mg PO DAILY 02/16/21 03/06/21 atorvastatin 40 mg tablet 40 mg PO QPM 02/16/21 03/06/21 chlorthalidone 25 mg tablet 25 mg PO DAILY 02/16/21 03/06/21 hydralazine 100 mg tablet 100 mg PO TID 02/16/21 03/06/21 insulin glargine 100 unit/mL (3 40 unit SUBCUT DAILY 02/16/21 03/06/21 mL) subcutaneous pen lisinopril 20 mg tablet 40 mg PO QPM 02/16/21 03/06/21 metformin 500 mg tablet,extended 500 mg PO DAILY 02/16/21 03/06/21 release 24 hr nystatin 100,000 unit/gram topical 1 applic TOPICAL BID PRN 02/16/21 03/06/21 powder Previous Rx's Medication Instructions Recorded tamsulosin 0.4 mg capsule (Flomax) 0.4 mg PO DAILY #30 cap 02/28/21 ciprofloxacin HCl 500 mg tablet 500 mg PO BID #14 tab 03/06/21 Allergies Allergy/AdvReac Type Severity Reaction Status Date / Time No Known Drug Allergies Allergy Verified 03/06/21 08:31 Review of Systems Review of Systems ROS Unobtainable: All systems reviewed & are unremarkable except as noted in HPI and below Patient History Medical History Diabetes HLD (hyperlipidemia) HTN (hypertension) Surgical History H/O knee surgery H/O shoulder surgery Family History Grandfather Diabetes mellitus Brother Hypertension Sister Hypertension Social History household members: spouse Smoking Status: Never smoker alcohol intake: former Smoking Status: Never smoker alcohol intake frequency: holidays/special occasions only Substance Use Type: does not use Exam Narrative Exam Narrative: GENERAL: Alert and oriented x three, male in mild distress. HEENT: Head normocephalic, atraumatic, EOMI, pupils reactive, face symmetric, moist mucous membranes NECK: Supple, full range of motion CARDIOVASCULAR: Regular rate and rhythm without murmurs, rubs or gallops. RESPIRATORY: Breath sounds equal bilaterally, no wheezes rales or rhonchi. ABDOMEN: Soft, nontender. Normoactive bowel sounds all 4 quadrants. No guarding or rebound, rigidity, no mass : No CVA tenderness. Male: normal external examination, + for penile discharge at urethra, no lesions, testicles non-tender, cremasteric reflex intact, no inguinal hernias noted. Patient has Puri catheter in place which is draining yellow urine that does have some sediment appears to be possibly infected. EXTREMITIES: Normal range of motion, no clubbing or edema. Neurovascularly intact NEUROLOGICAL: Cranial nerves II through XII grossly intact. Moving all extremities SKIN: Warm, dry, no petechiae, no rashes or lesions. Initial Vital Signs Initial Vital Signs: Vital Signs Pulse Rate 74 03/06/21 08:11 Pulse Oximetry 94 03/06/21 08:11 Course Orders Ordered: Discontinued Medications Ciprofloxacin (Ciprofloxacin 250 Mg Tablet) 500 mg PO NOW ONE Stop: 03/06/21 09:42 Last Admin: 10/08/21 10:01 Dose: 500 mg Documented by: CHARLES Vital Signs Vital signs: Vital Signs - 8 hr 03/06/21 08:16 Temperature 98.1 F Pulse Rate 64 Respiratory Rate 18 Blood Pressure 172/79 H Pulse Oximetry 94 MDM - Male Genitourinary Lab Data Labs: Lab Results 03/06/21 Range/Units 09:01 Urine Color Yellow Urine Appearance Clear Urine pH 6.0 (4.5-8.0) Ur Specific [place] 1.010 (1.000-1.035) Urine Protein 1+ H (Negative) Urine Glucose (UA) Negative (Negative) g/dL Urine Ketones Negative (NEGATIVE) Urine Occult Blood 3+ H (Negative) Urine Nitrate Negative (Negative) Urine Bilirubin Negative (NEGATIVE) Urine Urobilinogen 0.2 (0.2) E.U./dL Ur Leukocyte Esterase 2+ H (NEGATIVE) Urine RBC 5-10/hpf H (0-5/HPF) Urine WBC 10-30/hpf H (0-5/HPF) Ur Squamous Epith Cells 0-1 /hpf (0-5/HPF) Urine Bacteria Moderate (10-30) H (None) Ur Culture Indicated? Specimen cultured [facility] Narrative Medical decision making narrative: Patient catheter was flushed without issue. UA was sent and genital culture obtained. Patient was started on oral antibiotics is UA is positive. Cultures pending with plan to adjust medications as needed per cultures. Discharge Plan Departure Patient Disposition: Home Clinical Impression: Acute UTI, Puri catheter in place Instructions: How to Care for Your Puri Catheter -- Male Activity Restrictions/Additional Instructions: Your catheter appears to be functioning properly. You do appear to have an infection and a culture was sent for your urine and the skin/uretheral opening which is pending. This typically takes 48-72 hours to result and if positive or you need a change in your antibiotics you should be contacted. Take antibiotics until gone. Prescription sent to [facility]. Please return for fevers, if your catheter is not draining, rapidly worsening pain, fevers, new abdominal/back or flank pain, persistent vomiting or other new or concerning symptoms. Prescriptions: New ciprofloxacin HCl 500 mg tablet 500 mg PO BID Qty: 14 RF: 0 No Action aspirin 81 mg tablet,delayed release (DR/EC) 81 mg PO DAILY RF: 0 atorvastatin 40 mg Tablet 40 mg PO QPM RF: 0 chlorthalidone 25 mg Tablet 25 mg PO DAILY RF: 0 amlodipine 10 mg Tablet 10 mg PO DAILY RF: 0 hydralazine 100 mg Tablet 100 mg PO TID RF: 0 nystatin 100,000 unit/gram powder 1 applic TOPICAL BID PRN (Reason: Rash) RF: 0 metformin 500 mg Tablet Extended Release 24 Hr 500 mg PO DAILY RF: 0 insulin glargine 100 unit/mL (3 mL) Insulin Pen 40 unit SUBCUT DAILY RF: 0 lisinopril 20 mg tablet 40 mg PO QPM RF: 0 tamsulosin [Flomax] 0.4 mg Capsule 0.4 mg PO DAILY Qty: 30 RF: 0 Referrals: Malorie Collins DO [Primary Care Provider] -
--- NOTE | 2021-03-06 08:55 | PC.NURSE ---
moderate penile discharge . culture sent. indwelling cath. pt c/o burning inside. flushed cath.. flushes without resistance. pulled back clear fluid with small amount of sediment. amina care done. pt reports he feels better at his catheter site and the burning has resolved after.
[2021-03-06 09:08] LABS: Appearance Urine UA CLEAR; Bilirubin Urine UA NEGATIVE (NEGATIVE); Color Urine UA YELLOW; Glucose Urine UA NEGATIVE (Negative); Ketones Urine UA NEGATIVE (NEGATIVE); Leukocyte Esterase Urine UA 2+ (NEGATIVE); Nitrite Urine UA NEGATIVE (Negative); Occult Blood Urine UA 3+ (Negative); Protein Urine UA 1+ (Negative); Urobilinogen Urine UA 0.2 E.U./dL (0.2)
[2021-03-06 09:23] LABS: Bacteria Urine Moderate (10-30); Culture Indicated Urine Specimen Cultured; RBC Urine 5-10/HPF (0-5/HPF); Squamous Epithelial Cell Urine 0-1 /HPF (0-5/HPF); WBC Urine 10-30/HPF (0-5/HPF)
[2021-03-06] MEDS: CIPROFLOXACIN 250 MG TABLET 500 MG PO (10:01)
== END 2021-03-06 10:12 | disposition home or self-care (01) ==
PROVIDERS: Emergency Provider Emergency Medicine; PCP Family Medicine
DX: N39.0 Urinary tract infection, site not specified (principal); Z97.8 Presence of other specified devices
CPT/HCPCS: 51700; 81001; 87070; 87077; 87086; 87147; 87186; 87205; 99283; 99284

== ENCOUNTER 2023-07-26 08:35 | Emergency (ER) | payer MEDICARE, OTHER, SELFPAY ==
[2023-07-26 08:37] VITALS: BMI 35.7
[2023-07-26 08:45] VITALS: BP 177/80; PULSE 78; RESP 14; TEMP 36.7; O2SAT 96; BMI 35.1
[2023-07-26 08:46] VITALS: PULSE 60; O2SAT 96
[2023-07-26 09:00] VITALS: PULSE 60; O2SAT 94
[2023-07-26 09:01] VITALS: BP 141/67; PULSE 60; O2SAT 94
--- NOTE | 2023-07-26 09:23 | DI.US.S_ITS ---
PROCEDURE: US PERIPH VENOUS LOW EXTREM LT INDICATIONS: CRAMPING. PALPABLE LUMP LATERAL LEFT ANKLE. TECHNIQUE: Real-time imaging, as well as color and pulse Doppler interrogation, were performed of the lower extremity deep veins from the inguinal ligament to the popliteal fossa, with documentation of the visualized calf veins. COMPARISON: None. FINDINGS: The common femoral, femoral, popliteal, and the visualized calf veins are normally compressible, and free of intraluminal thrombus. Color and pulse Doppler demonstrate normal phasic intraluminal flow. There is normal augmentation response to distal compression maneuver. Mild edema is seen at the left ankle. In the lateral region of palpable abnormality, there is a complex fluid collection with increased vascularity to the adjacent tissues. Sterility indeterminate. This measures about 4.1 x 2.3 cm. IMPRESSION: No findings of lower extremity deep venous thrombosis. Possible fluid collection in the region of the left ankle, of indeterminate sterility Dictated by: Efren Rand M.D. on 07/26/2023 at 10:15 Approved by: Efren Rand M.D. on 07/26/2023 at 10:17
[2023-07-26 09:30] VITALS: BP 134/69; PULSE 60; O2SAT 94
--- NOTE | 2023-07-26 09:50 | ED.LOWEXIN ---
HPI - Extremity Injury (Lower) General Chief Complaint: Extremity Injury, Lower Stated Complaint: leg cramps,knot on L foot Time Seen by Provider: 07/26/23 09:20 Source: patient and family Mode of arrival: Ambulatory History of Present Illness HPI Narrative: 67-year-old gentleman with a history of diabetes, hypertension, hyperlipidemia, pacemaker placement after COVID infection in 2020 presents with left lower extremity cramping. 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 There is a slight bit of swelling he comes in for further evaluation. No fever, cough, chills, orthopnea, dyspnea. No redness or skin breakdown Related Data Home Medications Medication Instructions Recorded Confirmed aspirin 81 mg tablet,delayed 81 mg PO DAILY 04/07/19 03/06/21 release amlodipine 10 mg tablet 10 mg PO DAILY 02/16/21 03/06/21 atorvastatin 40 mg tablet 40 mg PO QPM 02/16/21 03/06/21 chlorthalidone 25 mg tablet 25 mg PO DAILY 02/16/21 03/06/21 hydralazine 100 mg tablet 100 mg PO TID 02/16/21 03/06/21 insulin glargine 100 unit/mL (3 40 unit SUBCUT DAILY 02/16/21 03/06/21 mL) subcutaneous pen lisinopril 20 mg tablet 40 mg PO QPM 02/16/21 03/06/21 metformin 500 mg tablet,extended 500 mg PO DAILY 02/16/21 03/06/21 release 24 hr nystatin 100,000 unit/gram topical 1 applic topical BID PRN Rash 02/16/21 03/06/21 powder Previous Rx's Medication Instructions Recorded tamsulosin 0.4 mg capsule (Flomax) 0.4 mg PO DAILY #30 caps 02/28/21 ciprofloxacin HCl 500 mg tablet 500 mg PO BID #14 tabs 03/06/21 Allergies Allergy/AdvReac Type Severity Reaction Status Date / Time No Known Drug Allergies Allergy Verified 07/26/23 08:51 Review of Systems Review of Systems Narrative: Pertinent positive and negative findings as per HPI Patient History Medical History Diabetes HLD (hyperlipidemia) HTN (hypertension) Surgical History H/O knee surgery H/O shoulder surgery Family History Grandfather Diabetes mellitus Brother Hypertension Sister Hypertension Social History household members: spouse Smoking Status: Never smoker alcohol intake: former Smoking Status: Never smoker alcohol intake frequency: holidays/special occasions only Substance Use Type: does not use Exam Initial Vital Signs Initial Vital Signs: Vital Signs Temperature 98.0 F 07/26/23 08:45 Pulse Rate 78 07/26/23 08:45 Respiratory Rate 14 07/26/23 08:45 Blood Pressure 177/80 H 07/26/23 08:45 Pulse Oximetry 96 07/26/23 08:45 Oxygen Delivery Method Room Air 07/26/23 08:45 General: Healthy appearing, in no acute distress. Able to give a complete and coherent history. Well-nourished well-developed HEENT: Moist mucous membranes, normal sclera with reactive pupils, Respiratory: Lungs are clear to auscultation, no wheezing no rales no rhonchi. Full and symmetrical air movement Cardiac: Regular rate and rhythm no murmurs no bruits Skin: Warm and dry, no rashes Neurologic: Grossly neurologically intact with no obvious asymmetries or abnormalities Extremities: Left calf is slightly more swollen than the right. There is no redness or warmth to suggest infection. Has not area on the lateral aspect of the calf it feels like a superficial thrombosed vessel. Psych: Cooperative, appropriate insight and affect Course Orders Ordered: ED Orders 07/26/23 09:23 perip venous low extrem rt Stat Vital Signs Vital signs: Vital Signs - 8 hr 07/26/23 08:45 07/26/23 08:46 07/26/23 09:00 Temperature 98.0 F Pulse Rate 78 60 60 Respiratory Rate 14 Blood Pressure 177/80 H Pulse Oximetry 96 96 94 Oxygen Delivery Method Room Air 07/26/23 09:01 07/26/23 09:01 07/26/23 09:30 Temperature Pulse Rate 60 60 Respiratory Rate Blood Pressure 141/67 H Pulse Oximetry 94 94 Oxygen Delivery Method Room Air Room Air 07/26/23 09:30 Temperature Pulse Rate Respiratory Rate Blood Pressure 134/69 Pulse Oximetry Oxygen Delivery Method MDM - Extremity Injury (Lower) MDM Narrative Medical decision making narrative: CC: Left calf pain Complicating co-morbidities: Diabetes, hypertension, hyperlipidemia Data collected from: patient Differential considered: Superficial thrombophlebitis, DVT, popliteal cyst, infection Exam documented above, pertinent findings include: There is a 2 x 2 cm area just proximal to the left lateral malleolus that has some slight fluctuance in his the area of tenderness, there is no indication of abscess. There was an area proximal to that that is more firm superficially that may well be a superficial thrombophlebitis. No mid calf tenderness remainder of exam is benign Imaging studies independently reviewed: Ultrasound of the left lower extremity shows no evidence of deep or superficial thrombus. No popliteal cyst. The area of concern is a simple cyst without secondary signs of any type of infection. Treatments: Compression wrap placed by physician. Neurovascularly intact pre and post. Discussion: 67-year-old gentleman with chronic lower extremity cramps and fullness in the lateral aspect of the left leg. Ultrasound suggests a benign fluid-filled cyst that is not connected to vasculature, does not contain clot and is not an abscess. Findings reviewed with the patient. An Archie wrap is applied for compression and he finds that this provides significant amount of relief. We talked about using compression socks, keeping the area elevated and if he has a additional concerns or problems to follow up with his primary care doctor. Questions are answered he is safe for discharge Discharge Plan Departure Patient Disposition: Home Clinical Impression: Lower limb pain, lateral Qualifiers: Laterality: left Qualified Code(s): M79.605 - Pain in left leg Instructions: DI for Leg Pain Activity Restrictions/Additional Instructions: Thank you for coming in today The ultrasound shows that the area of concern is a cyst under your skin. It is not a blood clot, is not connected to blood vessels and is not an abscess. It likely is going to improve without any further treatment. Using an Archie wrap as I put on in the emergency department or a compression sock will likely be helpful with pain control overall. If you notice redness, changes, any type of drainage or other concerns please feel free to return to the ER Prescriptions: No Action ciprofloxacin HCl 500 mg tablet 500 mg PO BID Qty: 14 0RF aspirin 81 mg tablet,delayed release (DR/EC) 81 mg PO DAILY atorvastatin 40 mg Tablet 40 mg PO QPM chlorthalidone 25 mg Tablet 25 mg PO DAILY amlodipine 10 mg Tablet 10 mg PO DAILY hydralazine 100 mg Tablet 100 mg PO TID nystatin 100,000 unit/gram powder 1 applic TOPICAL BID PRN (Reason: Rash) metformin 500 mg Tablet Extended Release 24 Hr 500 mg PO DAILY insulin glargine 100 unit/mL (3 mL) Insulin Pen 40 unit SUBCUT DAILY lisinopril 20 mg tablet 40 mg PO QPM tamsulosin [Flomax] 0.4 mg Capsule 0.4 mg PO DAILY Qty: 30 0RF Referrals: Marty De La Rosa FNP-C [Primary Care Provider] - Stand Alone Forms: Patient Portal/API
[2023-07-26 10:19] VITALS: RESP 14
== END 2023-07-26 10:20 | disposition home or self-care (01) ==
PROVIDERS: Emergency Provider Emergency Medicine; PCP Nurse Practitioner
DX: M79.605 Pain in left leg (principal); Z79.899 Other long term (current) drug therapy
CPT/HCPCS: 93971; 99283

== ENCOUNTER 2023-08-03 02:53 | Emergency (ER) | payer MEDICARE, OTHER, SELFPAY ==
[2023-08-03 03:02] VITALS: BP 147/71; PULSE 67; RESP 17; TEMP 36.3; O2SAT 98; BMI 33.0
[2023-08-03 03:11] VITALS: PULSE 61; O2SAT 95
[2023-08-03 03:30] VITALS: BP 129/68; PULSE 60; O2SAT 93
--- NOTE | 2023-08-03 03:44 | ED.EXTPRO ---
HPI - Extremity Problem General Chief complaint: Extremity Problem,Nontraumatic Stated complaint: left ankle pain, bottom of foot turned black Time Seen by Provider: 08/03/23 03:05 Source: patient Mode of arrival: Ambulatory History of Present Illness HPI Narrative: 68-year-old gentleman that was seen in the emergency department on 07/26 with complaints of a lump on the side of his left leg that was tender. Ultrasound at that time did not show DVT. There was a area of fluid collection that did not appear to be an abscess and did not appear to be connected to a vascular component. Reassurance is given and he was instructed to wear compression socks. He comes back today saying that there is some tenderness on the side of his foot and it is now black. Looking for a bit of reassurance. He notes that the area of tenderness just proximal to his ankle has resolved, it did respond nicely with the compression socks. He describes no fevers or chills. He has not had any obvious injuries that he remembers. Related Data Home Medications Medication Instructions Recorded Confirmed aspirin 81 mg tablet,delayed 81 mg PO DAILY 04/07/19 03/06/21 release amlodipine 10 mg tablet 10 mg PO DAILY 02/16/21 03/06/21 atorvastatin 40 mg tablet 40 mg PO QPM 02/16/21 03/06/21 chlorthalidone 25 mg tablet 25 mg PO DAILY 02/16/21 03/06/21 hydralazine 100 mg tablet 100 mg PO TID 02/16/21 03/06/21 insulin glargine 100 unit/mL (3 40 unit SUBCUT DAILY 02/16/21 03/06/21 mL) subcutaneous pen lisinopril 20 mg tablet 40 mg PO QPM 02/16/21 03/06/21 metformin 500 mg tablet,extended 500 mg PO DAILY 02/16/21 03/06/21 release 24 hr nystatin 100,000 unit/gram topical 1 applic topical BID PRN Rash 02/16/21 03/06/21 powder Previous Rx's Medication Instructions Recorded tamsulosin 0.4 mg capsule (Flomax) 0.4 mg PO DAILY #30 caps 02/28/21 ciprofloxacin HCl 500 mg tablet 500 mg PO BID #14 tabs 03/06/21 Allergies Allergy/AdvReac Type Severity Reaction Status Date / Time No Known Drug Allergies Allergy Verified 07/26/23 08:51 Review of Systems Review of Systems Narrative: Pertinent positive and negative findings as per HPI Patient History Medical History HLD (hyperlipidemia) HTN (hypertension) Diabetes Surgical History H/O knee surgery H/O shoulder surgery Family History Grandfather Diabetes mellitus Brother Hypertension Sister Hypertension Social History household members: spouse Smoking Status: Never smoker alcohol intake: former Smoking Status: Never smoker alcohol intake frequency: holidays/special occasions only Substance Use Type: does not use Exam Initial Vital Signs Initial Vital Signs: Vital Signs Temperature 97.3 F L 08/03/23 03:02 Pulse Rate 67 08/03/23 03:02 Respiratory Rate 17 08/03/23 03:02 Blood Pressure 147/71 H 08/03/23 03:02 Pulse Oximetry 98 08/03/23 03:02 Oxygen Delivery Method Room Air 08/03/23 03:02 General: Alert appropriate in no acute distress Respiratory: Able to speak in full sentences, no obvious respiratory distress Skin: No obvious rashes, warm and dry Neurologic: Grossly intact no obvious asymmetries or abnormalities Psych: appropriate insight and affect, cooperative Left foot shows some ecchymosis to the lateral aspect. I suspect that this is blood that has drained into the dependent portion of his foot from the area just proximal to his ankle that we reviewed on July 26 Course Vital Signs Vital signs: Vital Signs - 8 hr 08/03/23 03:02 Temperature 97.3 F L Pulse Rate 67 Respiratory Rate 17 Blood Pressure 147/71 H Pulse Oximetry 98 Oxygen Delivery Method Room Air MDM - Extremity (Nontraumatic) MDM Narrative Medical decision making narrative: 68-year-old gentleman with history of diabetes initially seen on July 26 with concerns for a lump on the side of his leg. I suspect that that was some type of small deep blood collection, was treated with compression socks and has now drained to the dependent portion which is the lateral aspect of his left foot. He noticed the discoloration today and was concerned that it was black. Reassurance is given regarding bruising and not actual black, necrotic nor infected tissue. There is no sign of injury. He is neurovascularly intact. The area of concern initially on the lower portion of the leg has resolved. There was no evidence of infection, trauma or additional vascular injury. Reassurance is given. He will continue to wear compression socks and I did review with him anticipated course of resolution of this dependent hematoma. He is safe for discharge Discharge Plan Departure Patient Disposition: Home Clinical Impression: Hematoma of left foot Instructions: DI for Hematoma (Bruise) Activity Restrictions/Additional Instructions: Thank you for coming in today So I suspect that that little bump that was on the side of your leg that did not seem to be connected to any blood vessels that we saw with the last visit, was a collection of blood. The blood has now worked its way down through the tissues and your seeing it on the side of your foot. The bruising over the side of your foot is old blood working its way to the surface, it is not from an injury to your foot itself This is not an infection. Your body will reabsorb this blood. I would suggest continuing to use the compression socks, keeping the foot elevated and this to shall pass:) If you find that you are getting worse or develop any new symptoms, please feel free to return to the emergency department for further evaluation. Prescriptions: No Action ciprofloxacin HCl 500 mg tablet 500 mg PO BID Qty: 14 0RF aspirin 81 mg tablet,delayed release (DR/EC) 81 mg PO DAILY atorvastatin 40 mg Tablet 40 mg PO QPM chlorthalidone 25 mg Tablet 25 mg PO DAILY amlodipine 10 mg Tablet 10 mg PO DAILY hydralazine 100 mg Tablet 100 mg PO TID nystatin 100,000 unit/gram powder 1 applic TOPICAL BID PRN (Reason: Rash) metformin 500 mg Tablet Extended Release 24 Hr 500 mg PO DAILY insulin glargine 100 unit/mL (3 mL) Insulin Pen 40 unit SUBCUT DAILY lisinopril 20 mg tablet 40 mg PO QPM tamsulosin [Flomax] 0.4 mg Capsule 0.4 mg PO DAILY Qty: 30 0RF Referrals: Marty De La Rosa FNP-C [Primary Care Provider] - Stand Alone Forms: Patient Portal/API
[2023-08-03 03:57] VITALS: BP 147/69; PULSE 63; O2SAT 96
== END 2023-08-03 04:03 | disposition home or self-care (01) ==
PROVIDERS: Emergency Provider Emergency Medicine; PCP Nurse Practitioner
DX: S90.32XA Contusion of left foot, initial encounter (principal); X58.XXXA Exposure to other specified factors, initial encounter
CPT/HCPCS: 99281

== ENCOUNTER 2025-02-14 18:31 | Emergency (ER) | payer MEDICARE, OTHER, SELFPAY ==
[2025-02-14] VITALS (7 sets, daily range): BP systolic 130–163; BP diastolic 65–72; PULSE 60–63; RESP 16; TEMP 36.2; O2SAT 91–96; BMI 35.6
[2025-02-14 20:04] LABS: Add Manual Diff / Slide Review NO; Hematocrit 32.9 % (41-53); Hemoglobin 11.2 g/dL (13.5-17.5); Lymphocytes Absolute Auto 2200 /uL (1100-4500); Mean Corpuscular HGB Conc 34.1 % (30-36); Mean Corpuscular Hemoglobin 29.4 PG (26-34); Mean Corpuscular Volume 86.0 fL (80-100); Platelet Count 269 X10^3/uL (150-400)
[2025-02-14 20:12] LABS: Alanine Aminotransferase 33 IU/L (<50); Albumin 3.7 g/dL (3.5-5.0); Albumin Globulin Ratio 1.1 (1.0-2.8); Alkaline Phosphatase 61 U/L (38-126); Blood Urea Nitrogen 38 mg/dL (9-20); Calcium 8.8 mg/dL (8.4-10.2); Carbon Dioxide 28 mmol/L (22-32); Chloride 104 mmol/L (98-107); Estimated Glomerular Filt Rate 47 mL/min (>60); Globulin 3.4 g/dL (1.7-4.1); Glucose 135 mg/dL (70-99); HEMOLYSIS < 15 (0-50); Potassium 4.0 mmol/L (3.4-5.1); Sodium 138 mmol/L (137-145); Total Protein 7.1 g/dL (6.3-8.2)
[2025-02-14 20:18] LABS: Appearance Urine UA CLEAR; Bilirubin Urine UA NEGATIVE (NEGATIVE); Color Urine UA YELLOW; Glucose Urine UA 3+ g/dL (Negative); Ketones Urine UA NEGATIVE (NEGATIVE); Leukocyte Esterase Urine UA NEGATIVE (NEGATIVE); Nitrite Urine UA NEGATIVE (Negative); Occult Blood Urine UA NEGATIVE (Negative); Protein Urine UA NEGATIVE (Negative); Specific Gravity Urine UA 1.010 (1.000-1.035); Urobilinogen Urine UA 0.2 E.U./dL (0.2); pH Urine UA 6.0 (4.5-8.0)
--- NOTE | 2025-02-14 23:00 | ED_ITS ---
HPI - Recheck/Abnormal Lab/Rx General Chief Complaint: Recheck/Abnormal Lab/Rx Stated Complaint: Kidney dysfuntion PC ref Time Seen by Provider: 02/14/25 22:51 Source: patient Mode of arrival: Ambulatory History of Present Illness HPI narrative: 69-year-old male here for follow up of outside facility lab tests, told his kidney function tests were not normal. On 01/31/2025 patient had outpatient labs done through [facility], sent to [facility] labs, apparently there were some abnormal kidney function, and he was advised to follow up. Unclear why there was such a delay 2 weeks for him to come in for evaluation. He has no lower extremity edema. No prior kidney problems. Has had difficulties with urination in the past. No history of kidney failure. Related Data Home Medications ?Medication ?Instructions ?Recorded ?Confirmed aspirin 81 mg tablet,delayed 81 mg PO DAILY 04/07/19 1 release amlodipine 10 mg tablet 10 mg PO DAILY 02/16/2101/17 atorvastatin 40 mg tablet 40 mg PO QPM 02/16/21 chlorthalidone 25 mg tablet 25 mg PO DAILY 02/16/21 hydralazine 100 mg tablet 100 mg PO TID 02/16/2103/06 insulin glargine 100 unit/mL (3 40 unit SUBCUT DAILY 0 02/16/21 03/06/21 mL) subcutaneous pen lisinopril 20 mg tablet 40 mg PO QPM 02/16/21 metformin 500 mg tablet,extended 500 mg PO DAILY 02/1603/06/21 release 24 hr nystatin 100,000 unit/gram topical 1 applic topical BI D PRN Rash 02/16/21 03/06/21 powder Previous Rx's ?Medication ?Instructions ?Recorded tamsulosin 0.4 mg capsule (Flomax) 0.4 mg PO DAILY #30 caps 02/28/21 ciprofloxacin HCl 500 mg tablet 500 mg PO BID #14 tabs 03/06/21 ciprofloxacin HCl 500 mg tablet 500 mg PO BID #20 tabs 02/15/25 (Cipro) Allergies Allergy/AdvReac Type Severity Reaction Status Date / Time No Known Drug Allergies Allergy Verified 07/26/23 08:51 Patient History Medical History HLD (hyperlipidemia) HTN (hypertension) Diabetes Surgical History H/O knee surgery H/O shoulder surgery Family History Grandfather Diabetes mellitus Brother Hypertension Sister Hypertension Social History household members: spouse Smoking Status: Never smoker alcohol intake: former Smoking Status: Never smoker alcohol intake frequency: holidays/special occasions only Exam Narrative Exam Narrative: GENERAL: Well-developed patient, in mild distress. HEAD: Atraumatic. Normocephalic. EYES: Pupils equal round and reactive. Extraocular motions intact. No scleral icterus. No injection or drainage. ENT: Nose without bleeding, purulent drainage. Throat without erythema, tonsillar hypertrophy or exudate. Airway patent. NECK: Trachea midline. Non tender CARDIOVASCULAR: Regular rate and rhythm without murmurs, gallops, or rubs. RESPIRATORY: Clear to auscultation. Breath sounds equal bilaterally. No wheezes, rales, or rhonchi. GASTROINTESTINAL: Abdomen soft, non-tender, nondistended. EXTREMITIES: No edema or joint tenderness. BACK: Nontender without deformity or crepitance. No flank tenderness. NEURO: AOx3. Motor functions grossly nonfocal. SKIN: No rash or erythema of visible areas Initial Vital Signs Initial Vital Signs: Vital Signs Temperature 97.1 F L 02/14/25 18:37 Pulse Rate 61 02/14/25 18:37 Respiratory Rate 16 02/14/25 18:37 Blood Pressure 163/72 H 02/14/25 18:37 Pulse Oximetry 96 02/14/25 18:37 Oxygen Delivery Method Room Air 02/14/25 18:37 Course Orders Ordered: ED Orders 02/14/25 20:10 Urinalysis and Microscopic Stat 02/14/25 23:01 CT abdomen pelvis wo con Stat Discontinued Medications Sodium Chloride (Normal Saline 0.9%) 1,000 mls @ 1,000 mls/hr IV BOLUS ONE Stop: 02/15/25 01:37 Last Infusion: 02/15/25 01:57 Dose: Infused Documented By: Admin: 02/15/25 00:45 Dose: 1,000 mls/hr Documented By: TON Vital Signs Vital signs: Vital Signs - 8 hr 02/14/25 22:05 02/14/25 22:14 02/14/25 22:30 Pulse Rate 61 63 60 Respiratory Rate 16 Blood Pressure 146/65 H Pulse Oximetry 94 93 94 Oxygen Delivery Method Room Air 02/14/25 23:00 02/14/25 23:21 02/14/25 23:21 Pulse Rate 62 63 Respiratory Rate Blood Pressure 154/70 H Pulse Oximetry 93 94 Oxygen Delivery Method 02/14/25 23:30 02/14/25 23:30 02/15/25 00:00 Pulse Rate 60 64 Respiratory Rate Blood Pressure 130/68 Pulse Oximetry 91 Oxygen Delivery Method 02/15/25 00:00 02/15/25 00:30 02/15/25 00:31 Pulse Rate 60 64 Respiratory Rate Blood Pressure 132/68 Pulse Oximetry 92 94 Oxygen Delivery Method 02/15/25 00:31 02/15/25 01:00 02/15/25 01:00 Pulse Rate 61 Respiratory Rate Blood Pressure 168/72 H 163/77 H Pulse Oximetry 95 Oxygen Delivery Method Room Air 02/15/25 01:30 02/15/25 01:30 Pulse Rate 60 Respiratory Rate Blood Pressure 132/62 Pulse Oximetry 93 Oxygen Delivery Method MDM - Recheck/Abnormal Lab/Rx Lab Data Attestation: I reviewed the patient's lab results. Lab results narrative: White blood cell count 6800, hemoglobin 11.2, platelets adequate. Glucose 135. BUN 38 with creatinine 1.59 both elevated. Serum CO2 28, normal electrolytes. Normal liver functions. Urinalysis showed presence of glucose, no ketones, not obviously infected. 02/14/25 19:45 02/14/25 19:45 Labs: Lab Results 02/14/25 02/14/25 Range/Units 19:45 20:10 WBC 6.8 (4.5-11.0) X10^3/uL RBC 3.83 L (4.5-5.9) X10^6/uL Hgb 11.2 L (13.5-17.5) g/dL Hct 32.9 L (41-53) % MCV 86.0 (80-100) fL MCH 29.4 (26-34) PG MCHC 34.1 (30-36) % RDW 13.9 (11.6-14.8) % Plt Count 269 (150-400) X10^3/uL Neut % (Auto) 54.3 (50-75) % Lymph % (Auto) 31.5 (25-40) % [facility] % (Auto) 10.5 (3-14) % Eos % (Auto) 2.7 (2-4) % Baso % (Auto) 1.0 (0-2) % Neut # (Auto) 3700 (1787-7547) /uL Lymph # (Auto) 2200 (3492-8260) /uL [place] # (Auto) 700 (0-900) /uL Eos # (Auto) 200 (0-450) /uL Baso # (Auto) 100 (0-100) /uL Sodium 138 (137-145) mmol/L Potassium 4.0 (3.4-5.1) mmol/L Chloride 104 (98-107) mmol/L Carbon Dioxide 28 (22-32) mmol/L BUN 38 H (9-20) mg/dL Creatinine 1.59 H (0.66-1.25) mg/dL Estimated GFR 47 L (>60) mL/min BUN/Creatinine Ratio 23.9 H (6-22) Glucose 135 H (70-99) mg/dL Calcium 8.8 (8.4-10.2) mg/dL Total Bilirubin 0.2 (0.2-1.3) mg/dL AST 34 (17-59) IU/L ALT 33 (<50) IU/L Alkaline Phosphatase 61 (38-126) U/L Total Protein 7.1 (6.3-8.2) g/dL Albumin 3.7 (3.5-5.0) g/dL Globulin 3.4 (1.7-4.1) g/dL Albumin/Globulin Ratio 1.1 (1.0-2.8) Urine Color Yellow Urine Appearance Clear Urine pH 6.0 (4.5-8.0) Ur Specific [place] 1.010 (1.000-1.035) Urine Protein Negative (Negative) Urine Glucose (UA) 3+ H (Negative) g/dL Urine Ketones Negative (NEGATIVE) Urine Occult Blood Negative (Negative) Urine Nitrate Negative (Negative) Urine Bilirubin Negative (NEGATIVE) Urine Urobilinogen 0.2 (0.2) E.U./dL Ur Leukocyte Esterase Negative (NEGATIVE) Urine RBC 1-5/hpf (0-5/HPF) Urine WBC 1-5/hpf (0-5/HPF) Ur Squamous Epith Cells None seen (0-5/HPF) Urine Bacteria None seen (None) Vol Urine Centrifuged 10ml (spun) Imaging Data CT scan - abdomen/pelvis: Radiologist's Impression: [address] [address] [address] Scan Report Signed Patient: Glen Guardado MR#: [id number] : 1955 Acct:[id number] Age/Sex: 69 / M Date of Service: 02/14/25 Loc: ED Accession Number: [id number] Procedure: CT abdomen pelvis wo con Ordering Provider: Marcus Gayle MD PROCEDURE: CT ABDOMEN PELVIS WO CON INDICATIONS: inc creat unclear cause TECHNIQUE: Axial sections were acquired from the lung bases to the pubic symphysis. Coronal and sagittal reformats were performed. For radiation dose reduction, the following was used: automated exposure control, adjustment of mA and/or kV according to patient size. COMPARISON: None. FINDINGS: Image quality: Diagnostic. Lower Chest: Scattered bibasilar scarring/atelectasis is seen. Heart size is enlarged, no pericardial effusion. Pacemaker leads are seen in right atrium and right ventricle. URINARY: Right Kidney: No stones or hydronephrosis. Nonspecific mild right perinephric fat stranding. Right Ureter: No hydroureter. Mild right periureteral fat stranding. Left Kidney: No stones or hydronephrosis. Mild left perinephric fat stranding. Likely simple cysts are seen scattered in left renal parenchyma. No gross solid appearing renal lesion. Left Ureter: No hydroureter. Mild left periureteral fat stranding. Bladder: Normal wall thickness. No stones. ABDOMEN: Liver: No contour-deforming solid mass. Gallbladder: Calcified stone in dependent portion of gallbladder lumen is seen. No gallbladder wall thickening. Biliary ducts: No biliary dilation. Pancreas: No ductal dilation. Spleen: Size is within normal limits. Adrenal Glands: No adrenal nodules. Stomach and Bowel: Normal colonic caliber, without significant wall thickening. Moderate fecal stasis in the colon is seen. No abscess collection. Peritoneum: No abnormal intraperitoneal fluid. No free air. Ventral Wall: No hernia. Abdominal Nodes: No enlarged retroperitoneal or mesenteric lymph nodes. Vessels: Aorta and inferior vena cava are normal in size. PELVIS: Pelvic Organs: Enlarged prostate gland with mass effect on floor of urinary bladder.. Pelvic Nodes: Unremarkable. Miscellaneous: No inguinal hernias are seen. Bones: No aggressive appearing bony lesions. No acute vertebral body compression fracture. Spondylitic changes are noted throughout or spine peer IMPRESSION: 1. No obstructing renal stones or hydronephrosis. No hydroureter. Bilateral perinephric and periureteral fat stranding concerning for low-grade infectious or inflammatory pyelonephritis suggest clinical correlation. 2. No gross bladder wall abnormality. Enlarged prostate gland. 3. Cholelithiasis without CT evidence of acute cholecystitis. 4. [id number]-rh-[id number] constipation. No abnormal bowel wall thickening. No bowel obstruction. No free fluid or free air. Dictated by: Michael Styles M.D. on 02/14/2025 at 23:40 Approved by: Michael Styles M.D. on 02/14/2025 at 23:43 MDM Narrative Medical decision making narrative: 69-year-old male here for follow up of outside facility abnormal lab result, reported [facility] blood draw from 01/31/2025 showed some abnormal kidney functions of unclear significance, unclear reason for 2 week delay in him presenting for this follow up. This is the 1st follow up. Labs pending here. Lab data: White blood cell count 6800, hemoglobin 11.2, platelets adequate. Glucose 135. BUN 38 with creatinine 1.59 both elevated. Serum CO2 28, normal electrolytes. Normal liver functions. Urinalysis showed presence of glucose, no ketones, not obviously infected. Outside data extracted by nurse from ?my chart? information from [facility], labs from 01/31/2025. Sodium 137, potassium 4.2, serum CO2 22, glucose 144, BUN 41 with creatinine 1.85, albumin with 3.5, calcium 8.4, T bili 0.2, alkaline phosphatase 52, ALT 17, AST 19. GFR estimated 39. CT abdomen and pelvis noncontrast scan ordered for anatomic information, if patient willing. Patient agreeable, can assist with follow up. CT abdomen and pelvis showed no acute obstructive changes to bladder kidneys. No stones or lesions. Incidental enlarged prostate gland. Incidental cholelithiasis without acute cholecystitis. Epii-mg-avgxdagd constipation also noted. See radiology report. Discharged home. Patient informed BUN and creatinine improved today compared to [facility] results from 2 weeks ago, IV fluids also given. Addendum: There was also mentioned of bilateral perinephric periureteral fat stranding on CT scanning, possible low grade inflammatory pyelonephritis. Urinalysis was not convincing for infection but CT appearance suspicious for inflammatory/infectious process. We will send prescription for ciprofloxacin antibiotic to his pharmacy, which has been taken in the past per medication list. eRx sent for Cipro 500 mg b.i.d. times 10 day course. We will add urinary tract infection to discharge diagnosis. ED charge nurse to contact patient regarding additional findings. Discharge Plan Departure Patient Disposition: Home Clinical Impression: Renal insufficiency, Urinary tract infection Activity Restrictions/Additional Instructions: Abnormal blood test 2 weeks ago done via [facility] laboratory services, who contacted you about the abnormal results, now your here for follow up 2 weeks later. No previous kidney problems recalled. [facility]. Today they are also abnormal but not as bad, somewhat improved from previous draw results. Today your kidney functions showed BUN 38 and creatinine 1.59, both improved from previous reported results 2 weeks ago. Tests are still not abnormal. CT noncontrast scanning of the abdomen and pelvis was performed. There were no kidney lesions, ureter lesions, bladder lesions noted. Further follow up as an outpatient with your regular doctor. IV fluid bolus given. Urinalysis without obvious infection. Consider further recheck of your kidney function in follow up next week. Recheck earlier here for any change worsening symptoms or any concerns prior. Prescriptions: New ciprofloxacin HCl [Cipro] 500 mg tablet 500 mg PO BID Qty: 20 0RF No Action ciprofloxacin HCl 500 mg tablet 500 mg PO BID Qty: 14 0RF aspirin 81 mg tablet,delayed release (DR/EC) 81 mg PO DAILY atorvastatin 40 mg Tablet 40 mg PO QPM chlorthalidone 25 mg Tablet 25 mg PO DAILY amlodipine 10 mg Tablet 10 mg PO DAILY hydralazine 100 mg Tablet 100 mg PO TID nystatin 100,000 unit/gram powder 1 applic TOPICAL BID PRN (Reason: Rash) metformin 500 mg Tablet Extended Release 24 Hr 500 mg PO DAILY insulin glargine 100 unit/mL (3 mL) Insulin Pen 40 unit SUBCUT DAILY lisinopril 20 mg tablet 40 mg PO QPM tamsulosin [Flomax] 0.4 mg Capsule 0.4 mg PO DAILY Qty: 30 0RF Referrals: Marty De La Rosa FNP-C [Primary Care Provider, Nursing] Stand Alone Forms: Patient Portal/API
[2025-02-15] VITALS: BP 132/68; PULSE 64
[2025-02-15 00:30] VITALS: PULSE 60; O2SAT 92
[2025-02-15 00:31] VITALS: BP 168/72; PULSE 64; O2SAT 94
[2025-02-15] MEDS: SODIUM CHLORIDE 0.9% 1,000 ML 1000 ML IV (00:45)
[2025-02-15 01:00] VITALS: BP 163/77; PULSE 61; O2SAT 95
[2025-02-15 01:30] VITALS: BP 132/62; PULSE 60; O2SAT 93
== END 2025-02-15 01:58 | disposition home or self-care (01) ==
PROVIDERS: Emergency Provider Emergency Medicine; PCP Nurse Practitioner
DX: N39.0 Urinary tract infection, site not specified (principal); N28.9 Disorder of kidney and ureter, unspecified
CPT/HCPCS: 36415; 74176; 80053; 81001; 85025; 96360; 99284